=== PATIENT | female | born 1945 | race Caucasian/White ===

== ENCOUNTER 2017-01-07 05:30 | Inpatient (IN) | payer MEDICARE ==
[2017-01-07] VITALS (16 sets, daily range): BP systolic 97–121; BP diastolic 53–71; PULSE 80–98; RESP 18–30; TEMP 97.7–98.1; O2SAT 6–100
[~2017-01-07] VITALS: Ht 152.4 cm; Wt 78.6 kg
[2017-01-07] MEDS ORDERED: SODIUM CHLOR 0.9% 1000 ML INJ 1,000 ML IV SCH (05:53)
[2017-01-07] MEDS ORDERED: ONDANSETRON HCL 4 MG/2 ML VIAL IVP ONE (06:00)
[2017-01-07] MEDS ORDERED: MORPHINE SULFATE 4 MG/ML INJ IV PUSH ONE (06:00)
[2017-01-07] MEDS ORDERED: SODIUM CHLORIDE 0.9% FLUSH 10 ML FLUSH IV FLUSH PRN (06:00)
--- NOTE | 2017-01-07 06:02 | PD ---
HPI Chief Complaint: Abdominal Pain Time Seen by Provider: 05:52 Travel History International Travel<30 days: No Contact w/Intl Traveler<30days: No Traveled to known affect area: No History of Present Illness HPI The patient is a 71-year-old female that complains of abdominal pain since 9 PM yesterday. The patient drinks fairly heavily, one half bottle of wine daily. She also is a heavy smoker smoking one pack a day. She had her left upper lung removed because of lung cancer. She is short of breath, more so than usual. She does not require at home oxygen. She is a patient of Dr. Jonathan Headley. She denies any fever. PFS Past Medical History Cancer: Yes (LEFT LUNG, POST PARTIAL LOBECTOMY) COPD: Yes Hypertension: Yes Respiratory: Yes (COPD) Tetanus Vaccination: > 5 Years Influenza Vaccination: No ?: Not Past Surgical History Other Surgery: Yes (L UPPER LOBE PARTIAL LOBECTOMY) Social History Alcohol Use: Yes (OCC) Tobacco Use: Yes (1PPD) Allergies-Medications (Allergen,Severity, Reaction): Coded Allergies: Azithromycin (Verified Allergy, Severe, Anaphylaxis, 01/07/17) Reported Meds & Prescriptions Reported Meds & Active Scripts Active Reported Anoro Ellipta Inh (Umeclidinium/Vilanterol) 62.5-25 Mcg/Act Aero 1 Puff INH DAILY Losartan (Losartan Potassium) 25 Mg Tab 25 Mg PO DAILY Amlodipine (Amlodipine Besylate) 5 Mg Tab 5 Mg PO DAILY Review of Systems Except as stated in HPI: all other systems reviewed are Neg Physical Exam Narrative GENERAL: The patient is thin in slight respiratory distress and moderate abdominal pain distress. Her vital signs show respiratory rate of 28 but otherwise normal. The patient has been put on oxygen and is satting 98% on 2 L nasal cannula. SKIN: Warm and dry. HEAD: Atraumatic. Normocephalic. EYES: Pupils equal and round. No scleral icterus. No injection or drainage. ENT: No nasal bleeding or discharge. Mucous membranes pink and moist. NECK: Trachea midline. No JVD. CARDIOVASCULAR: Regular rate and rhythm. No murmur appreciated. RESPIRATORY: No accessory muscle use. Entered wheezes are heard bilaterally. Breath sounds diminished bilaterally, left diminished more than right. GASTROINTESTINAL: Abdomen hard and slightly distended. Hepatic and splenic margins not palpable. The abdomen is diffusely tender. MUSCULOSKELETAL: No obvious deformities. No clubbing. No cyanosis. No edema. NEUROLOGICAL: Awake and alert. No obvious cranial nerve deficits. Motor grossly within normal limits. Normal speech. PSYCHIATRIC: Appropriate mood and affect; insight and judgment normal. Data Data Last Documented VS Vital Signs Date Time Temp Pulse Resp B/P Pulse Ox O2 Delivery O2 Flow Rate FiO2 01/07/17 07:06 97.9 84 18 105/54 97 Nasal Cannula 2 Orders Complete Blood Count With Diff (01/07/17 05:53) Comprehensive Metabolic Panel (01/07/17 05:53) Lipase (01/07/17 05:53) Urinalysis - C+S If Indicated (01/07/17 05:53) Ct Abd/Pel W Iv Contrast(Rout) (01/07/17 05:53) Iv Access Insert/Monitor (01/07/17 05:53) Ecg Monitoring (01/07/17 05:53) Oximetry (01/07/17 05:53) Ondansetron Inj (Zofran Inj) (01/07/17 06:00) Sodium Chlor 0.9% 1000 Ml Inj (Ns 1000 M (01/07/17 05:53) Sodium Chloride 0.9% Flush (Ns Flush) (01/07/17 06:00) Electrocardiogram (01/07/17 05:53) Morphine Inj (Morphine Inj) (01/07/17 06:00) Chest, Pa & Lat (01/07/17 05:53) Arterial Blood Gas (Abg) (01/07/17 ) Labs Laboratory Tests Test 01/07/17 01/07/17 06:00 06:18 White Blood Count 4.1 TH/MM3 Red Blood Count 4.38 MIL/MM3 Hemoglobin 15.7 GM/DL Hematocrit 47.7 % Mean Corpuscular Volume 109.0 FL Mean Corpuscular Hemoglobin 35.8 PG Mean Corpuscular Hemoglobin 32.9 % Concent Red Cell Distribution Width 14.2 % Platelet Count 301 TH/MM3 Mean Platelet Volume 7.2 FL Neutrophils (%) (Auto) 80.0 % Lymphocytes (%) (Auto) 13.0 % Monocytes (%) (Auto) 5.5 % Eosinophils (%) (Auto) 0.2 % Basophils (%) (Auto) 1.3 % Neutrophils # (Auto) 3.3 TH/MM3 Lymphocytes # (Auto) 0.5 TH/MM3 Monocytes # (Auto) 0.2 TH/MM3 Eosinophils # (Auto) 0.0 TH/MM3 Basophils # (Auto) 0.1 TH/MM3 CBC Comment DIFF FINAL Differential Comment Sodium Level 142 MEQ/L Potassium Level 3.5 MEQ/L Chloride Level 103 MEQ/L Carbon Dioxide Level 27.3 MEQ/L Anion Gap 12 MEQ/L Blood Urea Nitrogen 16 MG/DL Creatinine 0.70 MG/DL Estimat Glomerular Filtration 83 ML/MIN Rate Random Glucose 109 MG/DL Calcium Level 8.8 MG/DL Total Bilirubin 1.4 MG/DL Aspartate Amino Transf 21 U/L (AST/SGOT) Alanine Aminotransferase 17 U/L (ALT/SGPT) Alkaline Phosphatase 93 U/L Total Protein 6.3 GM/DL Albumin 3.3 GM/DL Lipase 70 U/L Blood Gas Puncture Site RT BRACHIAL Blood Gas Patient Temperature 98.6 Blood Gas HCO3 26 mmol/L Blood Gas Base Excess 2.4 mmol/L Blood Gas Oxygen Saturation 87 % Arterial Blood pH 7.45 Arterial Blood Partial 38 mmHG Pressure CO2 Arterial Blood Partial 65 mmHG Pressure O2 Arterial Blood Oxygen Content 18.0 Vol % Arterial Blood 4.9 % Carboxyhemoglobin Arterial Blood Methemoglobin 1.2 % Blood Gas Hemoglobin 14.8 G/DL Oxygen Delivery Device ROOM AIR Blood Gas Inspired Oxygen 21 % [facility] Medical Decision Making Medical Screen Exam Complete: Yes Emergency Medical Condition: Yes Medical Record Reviewed: Yes Differential Diagnosis Emphysema, hypoxemia, pneumothorax, COPD with acute exacerbation, abdominal pain etiology undetermined, perforated peptic ulcer, pancreatitis, dehydration, electrolyte disorder, colitis Narrative Course It is now 0711 and the patient is transferred to Dr. Ren. The chest x-ray does not show a perforated viscus. Jone Dalton MD Jan 07, 2017 06:02
[2017-01-07] MEDS ORDERED: UMEC1AER INH (06:03)
[2017-01-07] MEDS ORDERED: AMLO5TAB2 PO (06:03)
[2017-01-07] MEDS ORDERED: LOSA25TA PO (06:03)
[2017-01-07 06:06] LABS: AUTOMATED NEUTROPHIL # 3.3 TH/MM3 (1.8-7.7); BASOPHIL # 0.1 TH/MM3 (0-0.2); BASOPHIL % 1.3 % (0.0-2.0); EOSINOPHIL % 0.2 % (0.0-4.0); HEMATOCRIT 47.7 % (35.0-46.0); LYMPHOCYTE # 0.5 TH/MM3 (1.0-4.8); MEAN CORPUSCULAR HEMOGLOBIN 35.8 PG (27.0-34.0); MEAN CORPUSCULAR HGB CONC 32.9 % (32.0-36.0); MONO % 5.5 % (0.0-8.0); PLATELET COUNT 301 TH/MM3 (150-450); RED BLOOD COUNT 4.38 MIL/MM3 (4.00-5.30); RED CELL DISTRIBUTION WIDTH 14.2 % (11.6-17.2); WHITE BLOOD COUNT 4.1 TH/MM3 (4.0-11.0)
[2017-01-07 06:17] LABS: CHLORIDE 103 MEQ/L (98-107); POTASSIUM 3.5 MEQ/L (3.5-5.1); SODIUM (NA) 142 MEQ/L (136-145)
[2017-01-07 06:20] LABS: ANION GAP 12 MEQ/L (5-15); BICARBONATE 27.3 MEQ/L (21.0-32.0)
[2017-01-07 06:21] LABS: BLOOD UREA NITROGEN 16 MG/DL (7-18)
[2017-01-07 06:23] LABS: ALT (GPT) 17 U/L (10-53); AST (GOT) 21 U/L (15-37)
[2017-01-07 06:24] LABS: GLOMERULAR FILTRATION RATE 83 ML/MIN (>89)
[2017-01-07 06:25] LABS: TOTAL BILIRUBIN ADULT 1.4 MG/DL (0.2-1.0)
[2017-01-07 06:26] LABS: ALKALINE PHOSPHATASE 93 U/L (45-117)
[2017-01-07 06:28] LABS: BLOOD GAS BASE EXCESS 2.4 mmol/L (-2-2); BLOOD GAS CARBOXYHEMOGLOBIN 4.9 % (0-4); BLOOD GAS HCO3 26 mmol/L (22-26); BLOOD GAS METHEMOGLOBIN 1.2 % (0-2); BLOOD GAS O2 HGB SATURATION 87 % (90-100); BLOOD GAS PCO2 38 mmHG (38-42); BLOOD GAS PO2 65 mmHG (61-120); BLOOD GAS TOTAL HGB 14.8 G/DL (12.0-16.0); TEMP CORR TO 98.6
[2017-01-07 06:29] LABS: CRITICAL VALUE YES; DRAW SITE RT BRACHIAL; FIO2 21 %; NUMBER OF ARTERIAL PUNCTURES 1; OXYGEN DEVICE ROOM AIR; STAT YES
--- NOTE | 2017-01-07 06:31 | RADHPO ---
EXAM DATE/TIME: 01/07/2017 06:08 [facility] COMPARISON: No previous studies available for comparison. INDICATIONS : Shortness of breath. MEDICAL HISTORY : Chronic obstructive pulmonary disease. SURGICAL HISTORY : Lobectomy. ENCOUNTER: Initial ACUITY: 1 day PAIN SCORE: 8/10 LOCATION: Bilateral chest FINDINGS: Hyperinflation and emphysematous changes are noted. Heart size normal. Aortic calcification is seen. Left hilar surgical clips and suture material. Osseous structures are intact. CONCLUSION: Emphysema. Carl Purcell MD on January 07, 2017 at 6:29 Board Certified Radiologist. This report was verified electronically.
[2017-01-07 06:32] LABS: HEMO FLAGS DIFF FINAL
[2017-01-07] MEDS ORDERED: IOHEXOL 350 MG/ML 10 ML VIAL (for RAD DIAG) IV ONE (07:16)
--- NOTE | 2017-01-07 07:28 | PD ---
Physical Exam Narrative GENERAL: thin, well-developed patient. SKIN: Warm and dry. HEAD: Normocephalic EYES: No injection or drainage. ENT: No nasal drainage noted. NECK: Supple, trachea midline. CARDIOVASCULAR: Regular rate and rhythm RESPIRATORY: decreased aeration bilaterally. No accessory muscle use. GASTROINTESTINAL: Abdomen is diffusely tender with guarding NEUROLOGICAL: Awake and alert. Motor and sensory grossly within normal limits. Normal speech. Data Data Last Documented VS Vital Signs Date Time Temp Pulse Resp B/P Pulse Ox O2 Delivery O2 Flow Rate FiO2 01/07/17 07:44 94 Nasal Cannula 2.00 01/07/17 07:06 97.9 84 18 105/54 Orders Complete Blood Count With Diff (01/07/17 05:53) Comprehensive Metabolic Panel (01/07/17 05:53) Lipase (01/07/17 05:53) Urinalysis - C+S If Indicated (01/07/17 05:53) Ct Abd/Pel W Iv Contrast(Rout) (01/07/17 05:53) Iv Access Insert/Monitor (01/07/17 05:53) Ecg Monitoring (01/07/17 05:53) Oximetry (01/07/17 05:53) Ondansetron Inj (Zofran Inj) (01/07/17 06:00) Sodium Chlor 0.9% 1000 Ml Inj (Ns 1000 M (01/07/17 05:53) Sodium Chloride 0.9% Flush (Ns Flush) (01/07/17 06:00) Electrocardiogram (01/07/17 05:53) Morphine Inj (Morphine Inj) (01/07/17 06:00) Chest, Pa & Lat (01/07/17 05:53) Arterial Blood Gas (Abg) (01/07/17 ) Iohexol 350 Inj (Omnipaque 350 Inj) (01/07/17 07:16) Sodium Chlor 0.9% 1000 Ml Inj (Ns 1000 M (01/07/17 07:30) Methylprednisolone So Succ Inj (Solumedr (01/07/17 07:30) Albuterol-Ipratropium Neb (Duoneb Neb) (01/07/17 07:30) Blood Culture (01/07/17 07:36) Piperacil-Tazo 4.5 Gm Premix (Zosyn 4.5 (01/07/17 07:36) Lactic Acid Sepsis Protocol (01/07/17 07:36) Type And Screen (01/07/17 08:02) Admit Order (Ed Use Only) (01/07/17 08:02) Labs Laboratory Tests Test 01/07/17 01/07/17 01/07/17 06:00 06:18 07:43 White Blood Count 4.1 TH/MM3 Red Blood Count 4.38 MIL/MM3 Hemoglobin 15.7 GM/DL Hematocrit 47.7 % Mean Corpuscular Volume 109.0 FL Mean Corpuscular Hemoglobin 35.8 PG Mean Corpuscular Hemoglobin 32.9 % Concent Red Cell Distribution Width 14.2 % Platelet Count 301 TH/MM3 Mean Platelet Volume 7.2 FL Neutrophils (%) (Auto) 80.0 % Lymphocytes (%) (Auto) 13.0 % Monocytes (%) (Auto) 5.5 % Eosinophils (%) (Auto) 0.2 % Basophils (%) (Auto) 1.3 % Neutrophils # (Auto) 3.3 TH/MM3 Lymphocytes # (Auto) 0.5 TH/MM3 Monocytes # (Auto) 0.2 TH/MM3 Eosinophils # (Auto) 0.0 TH/MM3 Basophils # (Auto) 0.1 TH/MM3 CBC Comment DIFF FINAL Differential Comment Sodium Level 142 MEQ/L Potassium Level 3.5 MEQ/L Chloride Level 103 MEQ/L Carbon Dioxide Level 27.3 MEQ/L Anion Gap 12 MEQ/L Blood Urea Nitrogen 16 MG/DL Creatinine 0.70 MG/DL Estimat Glomerular Filtration 83 ML/MIN Rate Random Glucose 109 MG/DL Calcium Level 8.8 MG/DL Total Bilirubin 1.4 MG/DL Aspartate Amino Transf 21 U/L (AST/SGOT) Alanine Aminotransferase 17 U/L (ALT/SGPT) Alkaline Phosphatase 93 U/L Total Protein 6.3 GM/DL Albumin 3.3 GM/DL Lipase 70 U/L Blood Gas Puncture Site RT BRACHIAL Blood Gas Patient Temperature 98.6 Blood Gas HCO3 26 mmol/L Blood Gas Base Excess 2.4 mmol/L Blood Gas Oxygen Saturation 87 % Arterial Blood pH 7.45 Arterial Blood Partial 38 mmHG Pressure CO2 Arterial Blood Partial 65 mmHG Pressure O2 Arterial Blood Oxygen Content 18.0 Vol % Arterial Blood 4.9 % Carboxyhemoglobin Arterial Blood Methemoglobin 1.2 % Blood Gas Hemoglobin 14.8 G/DL Oxygen Delivery Device ROOM AIR Blood Gas Inspired Oxygen 21 % Urine Collection Type CLEAN CATCH Urine Color YELLOW Urine Turbidity CLEAR Urine pH 7.5 Urine Specific [place] 1.035 Urine Protein NEG mg/dL Urine Glucose (UA) NEG mg/dL Urine Ketones NEG mg/dL Urine Occult Blood NEG Urine Nitrite NEG Urine Bilirubin NEG Urine Leukocyte Esterase NEG Urine WBC 0-2 /hpf Urine Squamous Epithelial > 8 /hpf Cells Urine Yeast (Budding) FEW Microscopic Urinalysis Comment CULT NOT INDICATED Urine Collection Time 07:43 [facility] Medical Record Reviewed: Yes (pmh confirmed) Supervised Visit with JERDE: No Interpretation(s) CBC & BMP Diagram 01/07/17 06:00 Last 24 hours Impressions Chest X-Ray 01/07/17 0553 Signed Impressions: Service Date/Time: Saturday, January 07, 2017 06:08 - CONCLUSION: Emphysema. Carl Purcell MD Abdomen/Pelvis CT 01/07/17 0553 Signed Impressions: Service Date/Time: Saturday, January 07, 2017 07:07 - CONCLUSION: 1. There is a small volume of free intraperitoneal air suggestive of perforated bowel. The site of perforation is not identified however. 2. There is also a small volume of free fluid in the abdomen and pelvis with associated peritoneal enhancement. Enhancement of the peritoneum is typically associated with infection, hemorrhage, or malignancy. 3. Nonacute findings include moderate size hiatal hernia, severe atherosclerotic disease, and sigmoid diverticulosis. These findings were discussed with Dr. Chiang via telephone. Joo Mc MD Narrative Course In summary this is a 71-year-old female with remote history of lung cancer status post lobectomy and history of chronic COPD that presents with abdominal pain. Signed over to me to follow CT and admit. While awaiting CT I talked with patient and she states that she has been having her symptoms intermittently over the past month but last night it got bad and she started throwing up. She states that she had an appointment with her primary on January 19 but could not wait until then. She states she has been using her breathing treatments with her COPD more frequently. She normally does not wear oxygen. Will give DuoNeb' s and Solu-Medrol for her COPD exacerbation while awaiting testing. In addition blood cultures and lactate will be added on and she will given a repeat fluid bolus. Patient updated about CT scan abdomen pelvis and Zosyn was ordered. Patient is using bedpan currently to provide urinalysis and did not want a urine catheter. She states she had surgery multiple years ago to remove benign tumors from her abdomen at [facility] in [place] and agrees to admit patient and family updated about icu transfer, patient's vitals stable Critical Care Narrative Aggregate critical care time was 45 minutes. Time to perform other separately billable procedures was not included in the critical care time. My time did not include minutes spent treating any other patients simultaneously or on activities that did not directly contribute to the patient's treatment. The services I provided to this patient were to treat and/or prevent clinically significant deterioration that could result in: sepsis, respiratory failure I provided critical care services requiring my management, as noted below: Chart data review, documentation time, medication orders and management, vital sign assessments/reviewing monitor data, ordering and reviewing lab tests, ordering and interpreting/reviewing x-rays and diagnostic studies, care of the patient and discussion of the patient with the admitting physicians. Physician Communication Physician Communication dr ho states to admit to the main and will see patient dr vo requests to admit to inspecting machine adjuster and they will take over care after she is out of the ICU dr donis requests to call surgical inspecting machine adjuster dr roa agrees to be admitting physician and will see in the ER dr castro given brief report in case she goes to the ER as may no go straight to ICU dr ho updated at 9 about evac here and transferring now Diagnosis Primary Impression: Free intraperitoneal air Additional Impression: COPD exacerbation Admitting Information Admitting Physician Requests: Admit Angelica Chiang MD Jan 07, 2017 07:28
[2017-01-07] MEDS ORDERED: SODIUM CHLOR 0.9% 1000 ML INJ 1,000 ML IV ONE (07:30)
[2017-01-07] MEDS ORDERED: methylPREDNISolone SOD SUCC 125 MG/2 ML VIAL IVP ONE (07:30)
[2017-01-07] MEDS ORDERED: PIPERACIL-TAZO 4.5 GM PREMIX 100 ML IV STA (07:36)
--- NOTE | 2017-01-07 07:40 | RADHPO ---
EXAM DATE/TIME: 01/07/2017 07:07 [facility] COMPARISON: No previous studies available for comparison. INDICATIONS : Lower abdominal pain. IV CONTRAST: 60 cc Omnipaque 350 (iohexol) IV ORAL CONTRAST: No oral contrast ingested. RADIATION DOSE: 4.43 CTDIvol (mGy) MEDICAL HISTORY : Carcinoma, lung. Hypertension. SURGICAL HISTORY : Lobectomy. ENCOUNTER: Initial ACUITY: 1 day PAIN SCALE: 10/10 LOCATION: Bilateral lower quadrant TECHNIQUE: Volumetric scanning of the abdomen and pelvis was performed. Using automated exposure control and ad justment of the mA and/or kV according to patient size, radiation dose was kept as low as reasonably achievable to obtain optimal diagnostic quality images. FINDINGS: LOWER LUNGS: The visualized lower lungs are clear. LIVER: Homogeneous density with 3 low density lesions identified ranging in size from 5 mm up to 9 mm. These are too small to characterize but features favor small cysts. There is no dilation of the biliary t ree. No calcified gallstones. SPLEEN: Normal size without lesion. PANCREAS: Within normal limits. KIDNEYS: Normal in size and shape. There is no mass, stone or hydronephrosis. ADRENAL GLANDS: Within normal limits. VASCULAR: There is no aortic aneurysm. There is severe atherosclerotic disease. BOWEL/MESENTERY: The stomach, small bowel, and colon demonstrate no acute abnormality. There is a small volume of anastacia e fluid in the abdomen and pelvis with mild peritoneal enhancement. A small amount of free intraperit blake air is visualized in the anterior abdomen. A moderate size hiatal hernia is present. There is s igmoid diverticulosis. ABDOMINAL WALL: Within normal limits. RETROPERITONEUM: There is no lymphadenopathy. BLADDER: No wall thickening or mass. REPRODUCTIVE: The uterus is absent. No adnexal abnormalities seen. INGUINAL: There is no lymphadenopathy or hernia. MUSCULOSKELETAL: There are mild degenerative changes of the spine. No acute osseous abnormality is visualized. CONCLUSION: 1. There is a small volume of free intraperitoneal air suggestive of perforated bowel. The site of pe rforation is not identified however. 2. There is also a small volume of free fluid in the abdomen and pelvis with associated peritoneal en hancement. Enhancement of the peritoneum is typically associated with infection, hemorrhage, or malig sudha. 3. Nonacute findings include moderate size hiatal hernia, severe atherosclerotic disease, and sigmoid diverticulosis. These findings were discussed with Dr. Hird via telephone. Joo Mc MD on January 07, 2017 at 7:28 Board Certified Radiologist. This report was verified electronically.
[2017-01-07] MEDS: RESP: ALBUTEROL 2.5 MG/IPRATROPIUM 0.5 MG NEB (SCH) INH ×5 (07:43→23:29)
[2017-01-07 07:54] LABS: BLOOD, URINE NEG (NEG); GLUCOSE,URINE NEG (NEG); KETONE, URINE NEG (NEG); NITRITE,URINE NEG (NEG); PH, URINE 7.5 (5.0-8.5)
[2017-01-07 08:01] LABS: METHOD OF COLLECTION CLEAN CATCH; URINE COLOR YELLOW (YELLW/STRAW)
[2017-01-07 08:02] LABS: COMMENT (UR) CULT NOT INDICATED; CULTURE IF INDICATED CULT NOT INDICATED; SQUAMOUS EPITHELIAL CELL URINE > 8 /hpf (0-5); WBC, URINE 0-2 /hpf (0-5)
[2017-01-07] MEDS ORDERED: POTASSIUM PHOSPHATE INJ 30 MMOL in SODIUM CHLOR 0.9% 250 ML INJ 250 ML IV PRN (10:10)
[2017-01-07] MEDS ORDERED: POTASSIUM PHOSPHATE MONOBASIC 500 MG TAB PO/TUBE PRN (10:10)
--- NOTE | 2017-01-07 10:14 | HHI.HP ---
[facility] Service Critical Care Medicine Primary Care Physician Jonathan Headley III, MD Admission Diagnosis perforated viscus Diagnosis: (1) Sigmoid diverticulosis Diagnosis: Principal (2) Hiatal hernia Diagnosis: Principal (3) Macrocytosis without anemia Diagnosis: Principal (4) Acute respiratory insufficiency Diagnosis: Principal (5) Free intraperitoneal air Diagnosis: Principal (6) COPD exacerbation Diagnosis: Principal (7) History of lobectomy of lung Diagnosis: Principal (8) History of lung cancer Diagnosis: Principal (9) Tobacco abuse Diagnosis: Principal Chief Complaint: Abdominal pain since 9 PM/chronic abdominal pain 1 month Travel History International Travel<30 Days: No Contact w/Intl Traveler <30 Da: No Traveled to Known Affected Are: No History of Present Illness 71-year-old female. Date of admission 01/07/2017. Past medical history includes COPD not on supplemental oxygen at home, 60 years tobaccoism, history of left upper lobe lobectomy secondary to cancer [facility] and hypertension. She presents to the [place] ED with acute onset at 9 PM last night of abdominal pain. 10 out of 10. Sharp and stabbing without relief.I associated with nausea and vomiting. She states he's had abdominal pain "off and on" for the past month without relief. She states that she had an appointment with her primary on January 19 but could not wait until then. She was given Solu-Medrol 125 mg IV 1 and a DuoNeb treatment and placed on [address] scan abdomen pelvis reveals free peritoneal air without, free fluid within the abdomen, moderate hiatal hernia and sigmoid diverticulosis. Blood cultures [address] and Z[address] was ordered[address] Dr[address] ho was contacted and requested admission to the associate director with a consultation to him. He will see here at [facility]. She states she had surgery multiple years ago to remove benign tumors from her abdomen at [facility] in [place] and agrees to admit Currently, patient requesting morphine for pain management. Hemodynamic stable. On 3 L nasal cannula Review of Systems Constitutional: COMPLAINS OF: Fatigue, Weight loss, DENIES: Fever, Weight gain Endocrine: DENIES: Heat/cold intolerance, Polydipsia, Polyuria Eyes: DENIES: Blurred vision, Double Vision Ears, nose, mouth, throat: DENIES: Tinnitus Respiratory: DENIES: Apneas Cardiovascular: DENIES: Chest pain, Lower Extremity Edema Gastrointestinal: COMPLAINS OF: Abdominal pain, Nausea, Vomiting Genitourinary: DENIES: Urinary frequency Musculoskeletal: DENIES: Joint pain, Back pain, Neck pain Integumentary: DENIES: Abnormal pigmentation Hematologic/lymphatic: DENIES: Bruising Immunologic/allergic: DENIES: Urticaria Neurologic: DENIES: Abnormal gait Psychiatric: DENIES: Anxiety, Confusion, Depression Past Family Social History Allergies: Coded Allergies: Azithromycin (Verified Allergy, Severe, Anaphylaxis, 01/07/17) Past Medical History COPD Hypertension History of lung cancer History of benign abdominal masses unknown type Past Surgical History Left upper lobe lobectomy Removal abdominal masses 2 at [facility] Reported Medications As needed Ventolin Anoro Ellipta 62.5/25 one inhalation daily Losartan 25 mg by mouth daily Norvasc 5 mg by mouth daily Active Ordered Medications Reviewed in EMR Family History Positive for heart disease, cancer and hypertension Social History 1 pack per day tobacco 60 years ongoing. Social alcohol. Denies binge drinking. No IV drug use. Physical Exam Vital Signs Vital Signs Date Time Temp Pulse Resp B/P Pulse Ox O2 Delivery O2 Flow Rate FiO2 01/07/17 08:49 98 20 111/54 94 Nasal Cannula 2 01/07/17 08:42 94 22 111/53 93 Nasal Cannula 2 01/07/17 08:21 94 18 105/57 97 Nasal Cannula 2 01/07/17 07:44 94 Nasal Cannula 2.00 01/07/17 07:06 97.9 84 18 105/54 97 Nasal Cannula 2 01/07/17 06:48 80 20 97/66 96 Nasal Cannula 2 01/07/17 06:04 30 94 Room Air 01/07/17 05:50 87 20 108/71 97 Nasal Cannula 2 Physical Exam GENERAL: 71-year-old male, quite cachectic currently resting in bed in mild distress secondary to pain SKIN: Warm and dry. No rash HEAD: Atraumatic. Normocephalic. EYES: Pupils equal and round about 2 mm bilaterally and reactive. No scleral icterus. No injection or drainage. ENT: No nasal bleeding or discharge. Mucous membranes pink and moist. NECK: Trachea midline. No JVD. CARDIOVASCULAR: Regular rate and rhythm. S1, S2. No S4. Without murmur RESPIRATORY: Diminished breath sounds throughout. Positive and extremities.. Breath sounds equal bilaterally. GASTROINTESTINAL: Abdomen firm, tender palpation with voluntary guarding epigastric region. Positive bowel movement. Bowel sounds were not appreciated.. MUSCULOSKELETAL: Extremities without any significant peripheral edema. No obvious deformities. NEUROLOGICAL: Awake and alert. No obvious cranial nerve deficits. Motor grossly within normal limits. Five out of 5 muscle strength in the arms and legs. Normal speech. PSYCHIATRIC: Appropriate mood and affect; insight and judgment normal. Laboratory Laboratory Tests Test 01/07/17 01/07/17 01/07/17 01/07/17 06:00 06:18 07:43 08:05 White Blood Count 4.1 Red Blood Count 4.38 Hemoglobin 15.7 Hematocrit 47.7 Mean Corpuscular Volume 109.0 Mean Corpuscular Hemoglobin 35.8 Mean Corpuscular Hemoglobin 32.9 Concent Red Cell Distribution Width 14.2 Platelet Count 301 Mean Platelet Volume 7.2 Neutrophils (%) (Auto) 80.0 Lymphocytes (%) (Auto) 13.0 Monocytes (%) (Auto) 5.5 Eosinophils (%) (Auto) 0.2 Basophils (%) (Auto) 1.3 Neutrophils # (Auto) 3.3 Lymphocytes # (Auto) 0.5 Monocytes # (Auto) 0.2 Eosinophils # (Auto) 0.0 Basophils # (Auto) 0.1 CBC Comment DIFF FINAL Differential Comment Sodium Level 142 Potassium Level 3.5 Chloride Level 103 Carbon Dioxide Level 27.3 Anion Gap 12 Blood Urea Nitrogen 16 Creatinine 0.70 Estimat Glomerular Filtration 83 Rate Random Glucose 109 Calcium Level 8.8 Total Bilirubin 1.4 Aspartate Amino Transf 21 (AST/SGOT) Alanine Aminotransferase 17 (ALT/SGPT) Alkaline Phosphatase 93 Total Protein 6.3 Albumin 3.3 Lipase 70 Blood Gas Puncture Site RT BRACHIAL Blood Gas Patient Temperature 98.6 Blood Gas HCO3 26 Blood Gas Base Excess 2.4 Blood Gas Oxygen Saturation 87 Arterial Blood pH 7.45 Arterial Blood Partial 38 Pressure CO2 Arterial Blood Partial 65 Pressure O2 Arterial Blood Oxygen Content 18.0 Arterial Blood 4.9 Carboxyhemoglobin Arterial Blood Methemoglobin 1.2 Blood Gas Hemoglobin 14.8 Oxygen Delivery Device ROOM AIR Blood Gas Inspired Oxygen 21 Urine Collection Type CLEAN CATCH Urine Color YELLOW Urine Turbidity CLEAR Urine pH 7.5 Urine Specific Forbes 1.035 Urine Protein NEG Urine Glucose (UA) NEG Urine Ketones NEG Urine Occult Blood NEG Urine Nitrite NEG Urine Bilirubin NEG Urine Leukocyte Esterase NEG Urine WBC 0-2 Urine Squamous Epithelial > 8 Cells Urine Yeast (Budding) FEW Microscopic Urinalysis Comment CULT NOT INDICATED Urine Collection Time 07:43 Lactic Acid Level 1.5 Date/Time Procedure Status Source Growth 01/07/17 08:05 Aerobic Blood Culture Received Blood Peripheral Pending 01/07/17 08:05 Anaerobic Blood Culture Received Blood Peripheral Pending Result Diagram: 01/07/17 0600 01/07/17 0600 Imaging Last Impressions Chest X-Ray 01/07/17 0553 Signed Impressions: Service Date/Time: Saturday, January 07, 2017 06:08 - CONCLUSION: Emphysema. Carl Purcell MD Abdomen/Pelvis CT 01/07/17552 Signed Impressions: Service Date/Time: Saturday, January 07, 2017 07:07 - CONCLUSION: 1. There is a small volume of free intraperitoneal air suggestive of perforated bowel. The site of perforation is not identified however. 2. There is also a small volume of free fluid in the abdomen and pelvis with associated peritoneal enhancement. Enhancement of the peritoneum is typically associated with infection, hemorrhage, or malignancy. 3. Nonacute findings include moderate size hiatal hernia, severe atherosclerotic disease, and sigmoid diverticulosis. These findings were discussed with Dr. Chiang via telephone. Joo Mc MD Assessment and Plan Assessment and Plan Neuro/Psych: Acetaminophen for fever [place]/morphine for pain management CV: History of hypertension Atherosclerotic vascular disease Patient is on losartan 25 mg daily Norvasc 5 mill grams daily at home for hypertension. These have currently been held. Resume when clinically indicated EKG currently pending Will provide as needed blood pressure medication if needed Currently on normal saline at 84 cc an hour. Currently not requiring antihypertensives and/or vasopressors Lactate 1.5 within normal limits Resp: COPD History of lung cancer status post left upper lobe lobectomy Nasal cannula to maintain saturations greater than or equal to 92% Incentive spirometry while awake Bronchodilator therapy with DuoNeb's every 4 hours and albuterol every 2 hours breakthrough for dyspnea Anoro Ellipta inhalation daily at home. This is been held Chest x-ray revealed emphysematous times changes bilaterally GI: Free intraperitoneal air Hiatal hernia Sigmoid diverticulosis History of removal of 2 benign abdominal masses Low albumin Elevated bilirubin CT abdomen/pelvis revealed free intracranial air unknown source. Free fluid within the abdomen. Hiatal hernia and liver cyst and endoscopic vascular disease and sigmoid diverticulosis. Dr. ho/surgery consulted. Await recommendations Protonix 40 mg IV twice a day for GI prophylaxis LFTs within normal limits. Bilirubin elevated 1.4. Lipase actually low at 70. : Currently refusing Jane. Endo: Sliding-scale insulin if indicated to maintain euglycemia Renal: Monitor urine output closely. Accurate I's and O's BMP within normal limits. Follow BMP in a.m. Heme: Macrocytosis Polycythemia likely secondary to dehydration Follow-up CBC in AM. Check B12, folate/TSH and peripheral smear for macrocytosis ID: Likely peritonitis from bowel rupture Received 1 dose of Zosyn at [place]. Currently on Cipro/Flagyl and Diflucan day 1 Pertinent cultures Blood cultures - 01/07 - pending FEN: Replace electrolytes as clinically indicated per ICU electrolyte protocol MSK: PT/OT evaluate and treat Access - Peripheral IV. Patient gave verbal consent for Okay for central line if indicated. Benefits and risks discussed at length. Prophylaxis - GI - Protonix IV twice a day - DVT - SCD/pharmacological prophylaxis when okay with surgery Critical Care: The total critical care time was 75 minutes. Time to perform other separately billable procedures was not included in the critical care time. Code Status Full code Discussed Condition With Patient. Family members at bedside. Care plan discussed and all questions answered. Navi Lanza MD Jan 07, 2017 10:13
[2017-01-07] MEDS ORDERED: RESP: ALBUTEROL 2.5 MG/3 ML NEB (PRN) INH (10:15)
[2017-01-07] MEDS ORDERED: MAGNESIUM SULFATE INJ 2 GM in SODIUM CHLORIDE 0.9% INJ 96 ML IV PRN (10:15)
[2017-01-07] MEDS ORDERED: POTASSIUM CHLOR 40 MEQ PREMIX 100 ML IV PRN ×2 (10:15)
[2017-01-07] MEDS ORDERED: POTASSIUM PHOSPHATE MONOBASIC 500 MG TAB PO PRN (10:15)
[2017-01-07] MEDS ORDERED: POTASSIUM CHLOR 20 MEQ PREMIX 100 ML IV PRN (10:15)
[2017-01-07] MEDS ORDERED: MAGNESIUM SULFATE INJ 4 GM in SODIUM CHLORIDE 0.9% INJ 92 ML IV PRN (10:15)
[2017-01-07] MEDS ORDERED: SODIUM PHOSPHATE INJ 30 MMOL in SODIUM CHLOR 0.9% 250 ML INJ 240 ML IV PRN (10:15)
[2017-01-07] MEDS ORDERED: CHLORHEXIDINE GLUCONATE 2 % 1 PACK (2 CLOTHS) TOP PRN (10:15)
[2017-01-07] MEDS ORDERED: ACETAMINOPHEN 325 MG TAB PO PRN (10:15)
[2017-01-07] MEDS ORDERED: MAGNESIUM OXIDE 400 MG TAB PO PRN (10:15)
[2017-01-07] MEDS ORDERED: MISCELLANEOUS NURSING INFORMATION XX SCH (10:15)
[2017-01-07] MEDS ORDERED: DEXTROSE 50% IN WATER 50 ML VIAL(D50) IV PUSH PRN (10:45)
[2017-01-07] MEDS ORDERED: GLUCAGON 1 MG/ML VIAL OTHER PRN (10:45)
[2017-01-07] MEDS: SODIUM CHLOR 0.9% 1000 ML INJ 1,000 ML IV SCH (11:13)
[2017-01-07] MEDS ORDERED: SODIUM CHLORIDE 0.9% FLUSH 5 ML FLUSH IV FLUSH PRN (11:15)
[2017-01-07] MEDS: MORPHINE SULFATE 4 MG/ML INJ IV PRN ×3 (11:16→20:08)
[2017-01-07] MEDS: ONDANSETRON HCL 4 MG/2 ML VIAL IV PRN ×2 (11:17→20:07)
--- NOTE | 2017-01-07 11:41 | EKG ---
Date Performed: 01/07/2017 Time Performed: 05:35:58 PTAGE: 71 years EKG: Sinus rhythm Inferior and anterior T wave changes are nonspecific Borderline ECG NO PREVIOUS TRACING DOCTOR: Uriel Alba Interpretating Date/Time 01/07/2017 11:40:49
[2017-01-07] MEDS: INSULIN NovoLIN REGULAR SUPPLEMENTAL SCALE SQ SCH ×2 (12:00→17:34)
[2017-01-07] MEDS ORDERED: DIVALPROEX SODIUM SPRINKLES 125 MG CAP PO SCH (12:15)
[2017-01-07] MEDS: metroNIDAZOLE 500 MG INJ 100 ML IV SCH ×2 (12:31→17:12)
[2017-01-07] MEDS: CIPROFLOXACIN 400 MG PREMIX 200 ML IV SCH (12:54)
[2017-01-07] MEDS ORDERED: FLUCONAZOLE 400 MG PREMIX BAG 200 ML IV ONE (13:00)
--- NOTE | 2017-01-07 16:30 | MB ---
cc: CM CABRERA M.D. DATE OF CONSULTATION 01/07/2017 REASON FOR CONSULTATION Abdominal pain, possible perforated viscus. HISTORY OF THE PRESENT ILLNESS Ms. Fraga is a very pleasant 71-year-old female who apparently was seen in the [place] [facility] early this morning with complaints of severe abdominal pain. The patient states that she has had abdominal pain off and on for the last three months but last night it became unbearable. She states that the pain was 10/10. She came to the [place] [facility] where she was seen and evaluated by Dr. Dalton early this morning. Dr. Dalton checked her out, then to Dr. Chiang. The patient underwent a CT scan of the abdomen and pelvis which showed a few small bubbles of free air and a small amount of free fluid with no obvious source. Imaging surgical consultation was requested. The patient was brought up to [facility] for formal evaluation. The patient has a long-standing history of COPD and is oxygen dependent at times. Overall she is in a somewhat compromised medical state due to her chronic illnesses and heavy alcohol and cigarette use. The patient was seen immediately upon arrival to the [facility] room 1301 where she was accompanied by her family. On my questioning the patient states that the pain is significantly improved since last. Apparently she has been given a couple of doses of pain medications in the emergency department down in [place]. The patient states that the pain is diffuse and all over. She reports she has had some left lower quadrant pain in the past. She has had nausea but no vomiting. She denies any fever or chills. She denies any changes in her bowels. She rates the pain now at about a 5 out of 10. PAST MEDICAL HISTORY Includes: 1. Chronic obstructive pulmonary disease. 2. Lung cancer. 3. Hypertension. 4. The patient denies any history of ulcer disease. PAST SURGICAL HISTORY 1. She reports a left upper lobectomy for lung cancer. 2. She also states that she had benign tumors removed from her abdomen. Upon further questioning she believes these were associated with her uterus or ovaries. 3. She apparently has also had a hysterectomy. MEDICATIONS List includes: 1. Inhalers. 2. Norvasc. 3. Losartan. ALLERGIES SHE HAS AN ALLERGY TO AZITHROMYCIN. SOCIAL HISTORY She smokes a pack a day and drinks wine daily. She does not use any drugs. She does live her locally. FAMILY HISTORY Noncontributory. REVIEW OF SYSTEMS Please see history of present illness. PHYSICAL EXAMINATION VITAL SIGNS: Temperature is 98, pulse is 80, blood pressure is 120/60, respiratory rate 22. O2 saturation 100% on 2 liters nasal cannula. GENERAL: This is a chronic ill appearing female who much older than her stated age. HEENT: Pupils equal, round and reactive to light. Sclerae are white. Oropharynx is clear and moist. NECK: Supple. No masses. LUNGS: Clear to auscultation bilaterally. HEART: S1-S2. No murmur. ABDOMEN: Overall somewhat firm. She does have some moderate tenderness. She has no obvious rebound or guarding. She has a few bowel sounds. She has a lower midline and a low transverse incision. No obvious hernias. EXTREMITIES: Free range of motion times four. NEUROLOGICAL: Alert and oriented times three. LABORATORY DATA White blood cell count 4. Hemoglobin 15. Platelet count is 301. Electrolytes are within normal limits. Elevated glucose 109. Albumin 3.3. Lactic acid is 1.5. Urinalysis is negative. IMAGING CT scan of the abdomen and pelvis was reviewed. There are a few small bubbles of free air in the upper abdominal region. There is also a small amount of free fluid in the anterior abdomen. The patient does have obvious sigmoid diverticulosis without evidence of diverticulitis. IMPRESSION Abdominal pain, probable perforated viscus. PLAN At this point I had along discussion with the patient and her son at the bedside. We reviewed options for treatment including medical management with non operative treatment versus operative treatment. I reviewed the benefits and risks of non operative versus operative treatment. We discussed most likely possibility being a perforated ulcer or perforated diverticulitis. Based on her history I favor a perforated ulcer as she does not have a significant inflammatory reaction around her colon which would accompany a perforated diverticulitis. I explained to her that the ulcer may or may not have sealed. She really has a minimal amount of free air and free fluid at this time. We discussed possible surgical exploration. I advised her we could begin with a diagnostic laparoscopy and if we could elucidate the source of the perforation and close it laparoscopically I would be glad to do that. However, I explained to her that if the perforation was significant she may require formal exploratory laparotomy, possible colostomy if it is the sigmoid colon. At this point I advised her and her son that they could talk amongst themselves and decide with path they would like to pursue. At this time the patient is hemodynamically stable. Her pain has been managed with pain medications. Her laboratory values indicate a normal white count with only a mild shift at this time. Her vital signs are fairly normal except for the slight tachypnea which may be secondary to her COPD and anxiety and pain. Her ABG does not demonstrate any significant acidosis. In fact she is slightly alkalotic. Her lactic acid is 1.5. We will allow the patient and family to decide which course they would like to pursue. I offered them immediate operative exploration if they would like o do that right now. ADDENDUM Approximately two hours later I received a phone call from the nursing staff. She states that the patient and her son would like to perform observation for the first 24 hours. If she improves then they will continue non operative management. If her clinical condition deteriorates in the next 24 hours, I strongly recommended surgical exploration and they agreed. We will reassess the patient's abdominal examination in the morning. If she has a clinical deterioration this evening, we will plan for operative exploration. Please note that this consultation required prolonged conversation with the family and the patient. I also performed an extensive review of the EMR and evaluation of the labs and x-rays. It also required followup interaction in order to elucidate the plan of action. MD CHASE Titus/MARICARMEN /3:42 PM /3:53 PM
[2017-01-07] MEDS: SODIUM CHLORIDE 0.9% FLUSH 5 ML FLUSH IV FLUSH SCH (20:08)
[2017-01-07] MEDS: PANTOPRAZOLE SODIUM 40 MG VIAL IV SCH (20:08)
[2017-01-08] VITALS (14 sets, daily range): BP systolic 81–114; BP diastolic 50–63; PULSE 84–96; RESP 14–32; TEMP 97.9–98.2; O2SAT 94–99
[2017-01-08] MEDS: CIPROFLOXACIN 400 MG PREMIX 200 ML IV SCH ×3 (00:47→23:13)
[2017-01-08] MEDS: SODIUM CHLOR 0.9% 1000 ML INJ 1,000 ML IV SCH ×3 (00:47→22:45)
[2017-01-08] MEDS: metroNIDAZOLE 500 MG INJ 100 ML IV SCH ×5 (00:47→21:50)
[2017-01-08] MEDS: MORPHINE SULFATE 4 MG/ML INJ IV PRN ×3 (00:58→17:54)
--- NOTE | 2017-01-08 03:02 | RADRPT ---
EXAM DATE/TIME: 01/08/2017 01:37 [facility] COMPARISON: CHEST PA & LAT, January 07, 2017, 6:08. INDICATIONS : Short of breath. MEDICAL HISTORY : Chronic obstructive pulmonary disease. SURGICAL HISTORY : Lobectomy. ENCOUNTER: Subsequent ACUITY: 2 days PAIN SCORE: Non-responsive. LOCATION: Bilateral chest FINDINGS: Mild interstitial prominence and hazy airspace disease at the right lung base new from previous. Hear t size normal. Hyperinflation and attenuated lung markings. Aortic calcification. CONCLUSION: Developing airspace disease at the right lung base. Carl Purcell MD on January 08, 2017 at 3:00 Board Certified Radiologist. This report was verified electronically.
[2017-01-08 03:41] LABS: AUTOMATED NEUTROPHIL # 6.7 TH/MM3 (1.8-7.7); BASOPHIL % 0.2 % (0.0-2.0); EOSINOPHIL % 0.1 % (0.0-4.0); HEMATOCRIT 36.6 % (35.0-46.0); LYMPH % 4.1 % (9.0-44.0); LYMPHOCYTE # 0.3 TH/MM3 (1.0-4.8); MEAN CELL VOLUME 107.5 FL (80.0-100.0); MEAN CORPUSCULAR HEMOGLOBIN 37.3 PG (27.0-34.0); MEAN CORPUSCULAR HGB CONC 34.7 % (32.0-36.0); MONO % 3.6 % (0.0-8.0); PLATELET COUNT 188 TH/MM3 (150-450); RED CELL DISTRIBUTION WIDTH 14.4 % (11.6-17.2); WHITE BLOOD COUNT 7.3 TH/MM3 (4.0-11.0)
[2017-01-08 03:42] LABS: HEMO FLAGS AUTO DIFF
[2017-01-08] MEDS: RESP: ALBUTEROL 2.5 MG/IPRATROPIUM 0.5 MG NEB (SCH) INH ×5 (03:49→20:03)
[2017-01-08 03:55] LABS: APTT (PATIENT) 34.1 SEC (24.3-30.1); INTERNATIONAL NORMALIZED RATIO 1.3 RATIO; PROTHROMBIN TIME - PATIENT 14.2 SEC (9.8-11.6)
[2017-01-08] MEDS: CHLORHEXIDINE GLUCONATE 2 % 1 PACK (2 CLOTHS) TOP SCH (04:00)
[2017-01-08 04:07] LABS: ALT (GPT) 13 U/L (10-53); ANION GAP 9 MEQ/L (5-15); AST (GOT) 16 U/L (15-37); BICARBONATE 24.6 MEQ/L (21.0-32.0); BLOOD UREA NITROGEN 17 MG/DL (7-18); CHLORIDE 109 MEQ/L (98-107); GLOMERULAR FILTRATION RATE 117 ML/MIN (>89); MAGNESIUM 1.1 MG/DL (1.5-2.5); POTASSIUM 3.5 MEQ/L (3.5-5.1); SODIUM (NA) 143 MEQ/L (136-145)
[2017-01-08 04:09] LABS: ALKALINE PHOSPHATASE 31 U/L (45-117); TOTAL BILIRUBIN ADULT 0.4 MG/DL (0.2-1.0)
[2017-01-08 04:49] LABS: BANDS 64 % (0-6); NEUTROPHIL # MANUAL DIFF 6.9 TH/MM3 (1.8-7.7); POLYS (SEG NEUTROPHILS) 30 % (16-70); WBC DIFF SAMPLE 100
[2017-01-08 04:50] LABS: PLATELET ESTIMATE SMEAR NORMAL (NORMAL); PLATELET MORPHOLOGY NORMAL (NORMAL); SCAN/DIFF FINAL DIFF MANUAL
[2017-01-08] MEDS: INSULIN NovoLIN REGULAR SUPPLEMENTAL SCALE SQ SCH ×4 (05:49→17:53)
--- NOTE | 2017-01-08 07:00 | HHI.CCPN ---
Subjective Remarks/Hospital Course 71-year-old female. Date of admission 01/07/2017. 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 She presents to the [facility] with acute onset at 9 PM last night of abdominal pain. 10 out of 10. Sharp and stabbing without relief.I associated with nausea and vomiting. She states he's had abdominal pain "off and on" for the past month without relief. She states that she had an appointment with her primary on January 19 but could not wait until then. She was given Solu-Medrol 125 mg IV 1 and a DuoNeb treatment and placed on [address] scan abdomen pelvis reveals free peritoneal air without, free fluid within the abdomen, moderate hiatal hernia and sigmoid diverticulosis. Blood cultures 2 and Z[address] was ordered[address] Dr[address] ho was contacted and requested admission to the avionic technician with a consultation to him. He will see here at [facility]. She states she had surgery multiple years ago to remove benign tumors from her abdomen at [facility] in [place] and agrees to admit Currently, patient requesting morphine for pain management. Hemodynamic stable. On 3 L nasal cannula Subjective 01/08: Currently afebrile. Pain currently 4-10 management with IV morphine when necessary. Sharp stabbing such clotting. Note is 64% bandemia this a.m. Still considering surgery. Hemodynamically stable. Objective Vital Signs Date Time Temp Pulse Resp B/P Pulse Ox O2 Delivery O2 Flow Rate FiO2 01/08/17 04:00 96 01/08/17 04:00 98.2 21 93/54 96 01/07/17 20:28 Nasal Cannula 4.00 Intake and Output 01/07/17 01/07/17 01/08/17 08:00 16:00 00:00 Intake Total 2541 ml 756 ml Output Total 150 ml 150 ml Balance -150 ml 2391 ml 756 ml Result Diagram: 01/08/17 0300 01/08/17 0330 Other Results Microbiology Date/Time Procedure Status Source Growth 01/07/17 08:05 Aerobic Blood Culture Received Blood Peripheral Pending 01/07/17 08:05 Anaerobic Blood Culture Received Blood Peripheral Pending Imaging Last Impressions Chest X-Ray 01/08/17 0000 Signed Impressions: Service Date/Time: December 01:37 - CONCLUSION: Developing airspace disease at the right lung base. Carl Purcell MD Abdomen/Pelvis CT 01/07/17 0553 Signed Impressions: Service Date/Time: Saturday, January 07, 2017 07:07 - CONCLUSION: 1. There is a small volume of free intraperitoneal air suggestive of perforated bowel. The site of perforation is not identified however. 2. There is also a small volume of free fluid in the abdomen and pelvis with associated peritoneal enhancement. Enhancement of the peritoneum is typically associated with infection, hemorrhage, or malignancy. 3. Nonacute findings include moderate size hiatal hernia, severe atherosclerotic disease, and sigmoid diverticulosis. These findings were discussed with Dr. Chiang via telephone. Joo Mc MD Objective Remarks GENERAL: 71-year-old female, quite cachectic currently resting in bed in mild distress secondary to pain SKIN: Warm and dry. No rash HEAD: Atraumatic. Normocephalic. EYES: Pupils equal and round about 2 mm bilaterally and reactive. No scleral icterus. No injection or drainage. ENT: No nasal bleeding or discharge. Mucous membranes pink and moist. NECK: Trachea midline. No JVD. CARDIOVASCULAR: Regular rate and rhythm. S1, S2. No S4. Without murmur RESPIRATORY: Diminished breath sounds throughout. Positive and extremities.. Breath sounds equal bilaterally. GASTROINTESTINAL: Abdomen firm, tender palpation with voluntary guarding epigastric region. No rigidity. Hypoactive bowel sounds appreciated MUSCULOSKELETAL: Extremities without any significant peripheral edema. No obvious deformities. NEUROLOGICAL: Awake and alert. No obvious cranial nerve deficits. Motor grossly within normal limits. Five out of 5 muscle strength in the arms and legs. Normal speech. PSYCHIATRIC: Appropriate mood and affect; insight and judgment normal. A/P Assessment and Plan Neuro/Psych: Abdominal pain NOS management Acetaminophen for fever [place]/morphine for pain management CV: History of hypertension Atherosclerotic vascular disease Patient is on losartan 25 mg daily Norvasc 5 milligrams daily at home for hypertension. These have currently been held due to borderline blood pressures. Resume when clinically indicated EKG revealed normal sinus rhythm with normal NH/QRS and QT intervals Will provide as needed blood pressure medication if needed Currently on normal saline at 84 cc an hour. Currently not requiring antihypertensives and/or vasopressors Lactate 1.4within normal limits Resp: COPD History of lung cancer status post left upper lobe lobectomy Nasal cannula to maintain saturations greater than or equal to 92%. Currently on 4 L Incentive spirometry while awake Bronchodilator therapy with DuoNeb's every 4 hours and albuterol every 2 hours breakthrough for dyspnea Add Symbicort 160/4.5 2 puffs twice a day Anoro Ellipta inhalation daily at home. This is been held Chest x-ray revealed emphysematous times changes bilaterally with possible early right pleural effusion GI: Free intraperitoneal air Hiatal hernia Sigmoid diverticulosis History of removal of 2 benign abdominal masses Low albumin CT abdomen/pelvis revealed free intracranial air unknown source. Free fluid within the abdomen. Hiatal hernia and liver cyst and endoscopic vascular disease and sigmoid diverticulosis. Dr. ho/surgery consulted. Patient currently pondering surgical intervention. Last night requested conservative observation Protonix 40 mg IV twice a day for GI prophylaxis LFTs within normal limits. Bilirubin within normal limits. : Currently refusing Jane. Endo: Sliding-scale insulin if indicated to maintain euglycemia Renal: Monitor urine output closely. Accurate I's and O's BMP within normal limits. Follow BMP in a.m. Heme: Macrocytosis Polycythemia likely secondary to dehydration Follow-up CBC in AM. B12,TSH within normal limits. Folate low at 2.3. Follow-up peripheral smear for macrocytosis ID: Likely peritonitis from ruptured gastric ulcer/diverticulit? Received 1 dose of Zosyn at [place]. Currently on Cipro/Flagyl and Diflucan day 2 Pertinent cultures Blood cultures - 01/07 -results pending FEN: Hypo-magnesium Replace electrolytes as clinically indicated per ICU electrolyte protocol 3 g mag sulfate IV 1 now. Recheck in 1600 MSK: PT/OT evaluate and treat Access - Peripheral IV. Patient gave verbal consent for Okay for central line if indicated. Benefits and risks discussed at length. Prophylaxis - GI - Protonix IV twice a day - DVT - SCD/pharmacological prophylaxis when okay with surgery Critical Care: The total critical care time was 35 minutes. Time to perform other separately billable procedures was not included in the critical care time. Navi Lanza MD Jan 08, 2017 06:59
[2017-01-08] MEDS ORDERED: POTASSIUM CHLOR 10 MEQ PREMIX 100 ML IV ONE (07:15)
[2017-01-08] MEDS ORDERED: FOLIC ACID 1 MG/0.2 ML INJ IM ONE ×2 (07:15→10:00)
[2017-01-08] MEDS: SODIUM CHLORIDE 0.9% FLUSH 5 ML FLUSH IV FLUSH SCH ×2 (07:23→21:49)
[2017-01-08] MEDS: MAGNESIUM SULFATE 1 GM PREMIX 100 ML IV SCH ×3 (08:39→09:26)
[2017-01-08] MEDS: PANTOPRAZOLE SODIUM 40 MG VIAL IV SCH ×2 (08:40→21:49)
[2017-01-08] MEDS: BUDESONIDE-FORMOTEROL 160/4.5 MCG INHALER INH SCH ×2 (09:00→21:00)
[2017-01-08] MEDS ORDERED: FOLIC ACID INJ 1 MG in SYRINGE/BAG 1 EA IM ONE (09:00)
[2017-01-08] MEDS: FLUCONAZOLE/NACL 200 MG/100 ML IV SCH (12:42)
--- NOTE | 2017-01-08 14:44 | EKG ---
Date Performed: 01/07/2017 Time Performed: 10:23:58 PTAGE: 71 years EKG: Sinus rhythm Extensive T wave changes are nonspecific Borderline ECG Compared to prior tracing no significant eleazar nge PREVIOUS TRACING 01/07/2017 05.35.58 DOCTOR: Pawan Pritchard Interpretating Date/Time 01/08/2017 14:40:40
[2017-01-08 15:13] LABS: MAGNESIUM 2.4 MG/DL (1.5-2.5); POTASSIUM 3.3 MEQ/L (3.5-5.1)
[2017-01-08] MEDS: POTASSIUM CHLOR 20 MEQ PREMIX 100 ML IV PRN (15:29)
[2017-01-08] MEDS ORDERED: NOREPINEPHRINE INJ 4 MG in SODIUM CHLOR 0.9% 250 ML INJ 246 ML IV SCH (16:30)
[2017-01-08] MEDS ORDERED: SODIUM CHLOR 0.9% 1000 ML INJ 1,000 ML IV ONE (16:30)
[2017-01-08] MEDS ORDERED: TERBUTALINE INJ 1 MG/ML AMP SQ PRN (16:30)
--- NOTE | 2017-01-08 16:30 | HHI.PR ---
Subjective Subjective Notes Resting in bed Pain better today Objective Vitals/I&O Vital Signs Date Time Temp Pulse Resp B/P Pulse Ox O2 Delivery O2 Flow Rate FiO2 01/08/17 16:00 98.1 94 32 81/50 99 01/08/17 08:01 Nasal Cannula 4.00 Labs Laboratory Tests Test 01/08/17 01/08/17 01/08/17 03:00 03:30 14:35 White Blood Count 7.3 Red Blood Count 3.40 Hemoglobin 12.7 Hematocrit 36.6 Mean Corpuscular Volume 107.5 Mean Corpuscular Hemoglobin 37.3 Mean Corpuscular Hemoglobin 34.7 Concent Red Cell Distribution Width 14.4 Platelet Count 188 Mean Platelet Volume 7.1 Neutrophils (%) (Auto) 92.0 Lymphocytes (%) (Auto) 4.1 Monocytes (%) (Auto) 3.6 Eosinophils (%) (Auto) 0.1 Basophils (%) (Auto) 0.2 Neutrophils # (Auto) 6.7 Lymphocytes # (Auto) 0.3 Monocytes # (Auto) 0.3 Eosinophils # (Auto) 0.0 Basophils # (Auto) 0.0 CBC Comment AUTO DIFF Differential Total Cells 100 Counted Neutrophils % (Manual) 30 Band Neutrophils % 64 Lymphocytes % 4 Monocytes % 2 Neutrophils # (Manual) 6.9 Differential Comment FINAL DIFF MANUAL Platelet Estimate NORMAL Platelet Morphology Comment NORMAL Prothrombin Time 14.2 Prothromb Time International 1.3 Ratio Activated Partial 34.1 Thromboplast Time Sodium Level 143 Potassium Level 3.5 3.3 Chloride Level 109 Carbon Dioxide Level 24.6 Anion Gap 9 Blood Urea Nitrogen 17 Creatinine 0.52 Estimat Glomerular Filtration 117 Rate Random Glucose 108 Lactic Acid Level 1.4 Calcium Level 7.8 Phosphorus Level 3.0 Magnesium Level 1.1 2.4 Total Bilirubin 0.4 Aspartate Amino Transf 16 (AST/SGOT) Alanine Aminotransferase 13 (ALT/SGPT) Alkaline Phosphatase 31 Total Protein 4.9 Albumin 2.2 Date/Time Procedure Status Source Growth 01/07/17 08:05 Aerobic Blood Culture - Preliminary Resulted Blood Peripheral NO GROWTH IN 1 DAY 01/07/17 08:05 Anaerobic Blood Culture - Preliminary Resulted Gram Negative Luis M Cardiovascular: Regular Lungs: Clear Abdomen: Other (minimal abdominal pain with palpation; soft ) Extremities: No edema A/P Assessment and Plan 71 year old female with free air seen on CT; likely perforated viscous -Clinical exam has improved -Start clear liquids -Monitor vitals -At this time will continue non -op treatment I CERTIFY AND ATTEST THAT I PERSONALLY EXAMINED THIS PATIENT IN THEIR ROOM WITH THE COLLEGE PROFESSOR PRESENT. MS SARAH IS DOCUMENTING OUR VISIT IN THE EMR AND ENTERED ORDERS UNDER MY DIRECT SUPERVISION. I DISCUSSED THE CARE PLAN WITH THE PATIENT AND THEIR [facility] STAFF. Conchis May MD, FACS Jan 08, 2017 16:30 Rip Elias MD Jan 17, 2017 13:37
--- NOTE | 2017-01-08 17:07 | PD.PROCEDR ---
Central Line Procedure REASON FOR PROCEDURE Central venous access PROCEDURE PERFORMED Central line placement: Left IJ CVL CONSENT Informed consent for procedure was obtained. The risks and benefits of the procedure were discussed to include but limited to bleeding, clot formation, infection, and even . ANESTHESIA Local injection of 1% Lidocaine DESCRIPTION OF THE PROCEDURE The patient was placed in supine, mild Trendelenburg position. The area was exposed and cleansed with ChloraPrep, times two. Large sterile drape was used to cover the patient, with the site exposed, under sterile conditions including cap, face mask, sterile gown, and sterile gloves. On single attempt, the introducer needle was inserted with negative pressure in syringe and venous flash was obtained. The guide wire was then advanced without any restriction and the needle was removed. The dilator was used without any complications. Using Seldinger technique the triple-lumen catheter was advanced over the guide wire to a depth of 20 centimeters. The guide wire was removed. All ports were aspirated with dark venous blood return and flushed easily with sterile saline. All ports were capped. Antibiotic disc was placed around central line at puncture site. The central line was secured to the skin with two interrupted 2.0 silk sutures. The area was bandaged with sterile see-through central line bandage. RADIOLOGICAL DATA Ultrasound guidance was used to locate left internal jugular vein. Doppler/ color flow was used to confirm venous flow. COMPLICATIONS: No apparent complications ESTIMATED BLOOD LOSS: Less than 1 cc. Navi Lanza MD Jan 08, 2017 17:07
[2017-01-08] MEDS ORDERED: SODIUM CHLORIDE 0.9% FLUSH 10 ML FLUSH IVF PRN (17:15)
--- NOTE | 2017-01-08 17:49 | RADRPT ---
EXAM DATE/TIME: 01/08/2017 17:16 [facility] COMPARISON: CHEST SINGLE AP, January 08, 2017, 1:37. INDICATIONS : Central Line placement. MEDICAL HISTORY : Carcinoma, lung. Hypertension. SURGICAL HISTORY : Lobectomy. ENCOUNTER: Subsequent ACUITY: 3 days PAIN SCORE: 0/10 LOCATION: Bilateral chest FINDINGS: A left internal jugular central line has its tip in the superior vena cava. There is no pneumothorax. Focal patchiness is noted within the right lung base consistent with atelectasis and/or pneumonia. Clinical correlation is recommended. The heart is stable. CONCLUSION: 1. No pneumothorax status post placement of left internal jugular central line which has its tip in t he superior vena cava. 2. Right basilar patchiness consistent with atelectasis and/or infiltrate. Dino Parsons MD on January 08, 2017 at 17:40 Board Certified Radiologist. This report was verified electronically.
[2017-01-08] MEDS ORDERED: ALBUMIN HUMAN 25% 25 GM/100 ML BAGP IV ONE (18:00)
[2017-01-09] VITALS (15 sets, daily range): BP systolic 92–106; BP diastolic 53–60; PULSE 84–135; RESP 19–28; TEMP 98.1–98.6; O2SAT 91–99
[2017-01-09] MEDS: RESP: ALBUTEROL 2.5 MG/IPRATROPIUM 0.5 MG NEB (SCH) INH ×3 (00:12→07:26)
[2017-01-09] MEDS: MORPHINE SULFATE 4 MG/ML INJ IV PRN (01:59)
[2017-01-09] MEDS: ONDANSETRON HCL 4 MG/2 ML VIAL IV PRN ×2 (01:59→06:16)
[2017-01-09] MEDS: CHLORHEXIDINE GLUCONATE 2 % 1 PACK (2 CLOTHS) TOP SCH (04:00)
[2017-01-09] MEDS: metroNIDAZOLE 500 MG INJ 100 ML IV SCH ×4 (05:52→23:56)
[2017-01-09] MEDS: INSULIN NovoLIN REGULAR SUPPLEMENTAL SCALE SQ SCH ×5 (06:00→21:00)
[2017-01-09 06:13] LABS: AUTOMATED NEUTROPHIL # 8.9 TH/MM3 (1.8-7.7); BASOPHIL % 0.2 % (0.0-2.0); LYMPH % 3.7 % (9.0-44.0); LYMPHOCYTE # 0.4 TH/MM3 (1.0-4.8); MEAN CELL VOLUME 109.7 FL (80.0-100.0); MEAN CORPUSCULAR HEMOGLOBIN 36.7 PG (27.0-34.0); MEAN CORPUSCULAR HGB CONC 33.5 % (32.0-36.0); MONO % 4.6 % (0.0-8.0); NEUT % 91.5 % (16.0-70.0); PLATELET COUNT 187 TH/MM3 (150-450); RED BLOOD COUNT 3.01 MIL/MM3 (4.00-5.30); WHITE BLOOD COUNT 9.8 TH/MM3 (4.0-11.0)
[2017-01-09 06:15] LABS: HEMO FLAGS AUTO DIFF
--- NOTE | 2017-01-09 06:31 | RADRPT ---
EXAM DATE/TIME: 01/09/2017 05:06 [facility] COMPARISON: CHEST SINGLE AP, January 08, 2017, 17:16. INDICATIONS : Shortness of breath. MEDICAL HISTORY : Hypertension. Carcinoma, lung. SURGICAL HISTORY : Lobectomy. ENCOUNTER: Subsequent ACUITY: 2 days PAIN SCORE: Non-responsive. LOCATION: Bilateral chest FINDINGS: A single portable frontal view of the chest shows worsening bibasilar consolidation. Tiny effusions a lso noted. Heart normal in size. Left-sided central line noted. CONCLUSION: Worsening bibasilar infiltrates with tiny effusions. Agusto Funes Jr., MD on January 09, 2017 at 6:29 Board Certified Radiologist. This report was verified electronically.
--- NOTE | 2017-01-09 06:31 | RADRPT ---
EXAM DATE/TIME: 01/09/2017 05:08 [facility] COMPARISON: No previous studies available for comparison. INDICATIONS : Distention. MEDICAL HISTORY : Hypertension. Carcinoma, lung. SURGICAL HISTORY : Lobectomy. ENCOUNTER: Subsequent ACUITY: 2 days PAIN SCORE: Non-responsive. LOCATION: abdomen, all quadrants. FINDINGS: Supine view of the abdomen was performed. The abdominal bowel gas pattern is normal. No abnormal ma sses, calcifications, or organomegaly is seen. The osseous structures are unremarkable. CONCLUSION: Normal examination. Agusto Funes Jr., MD on January 09, 2017 at 6:29 Board Certified Radiologist. This report was verified electronically.
[2017-01-09 06:50] LABS: ALKALINE PHOSPHATASE 44 U/L (45-117); ALT (GPT) 20 U/L (10-53); ANION GAP 8 MEQ/L (5-15); AST (GOT) 31 U/L (15-37); BICARBONATE 22.1 MEQ/L (21.0-32.0); BLOOD UREA NITROGEN 18 MG/DL (7-18); CHLORIDE 108 MEQ/L (98-107); CREATINE KINASE 495 U/L (26-192); GLOMERULAR FILTRATION RATE 131 ML/MIN (>89); POTASSIUM 4.3 MEQ/L (3.5-5.1); SODIUM (NA) 138 MEQ/L (136-145); TOTAL BILIRUBIN ADULT 0.3 MG/DL (0.2-1.0)
[2017-01-09 07:17] LABS: CKMB 6.4 NG/ML (0.5-3.6)
[2017-01-09 07:20] LABS: BANDS 26 % (0-6); NEUTROPHIL # MANUAL DIFF 9.1 TH/MM3 (1.8-7.7); POLYS (SEG NEUTROPHILS) 67 % (16-70); WBC DIFF SAMPLE 100
[2017-01-09 07:21] LABS: PLATELET ESTIMATE SMEAR NORMAL (NORMAL); PLATELET MORPHOLOGY NORMAL (NORMAL)
[2017-01-09 07:22] LABS: DOHLE BODIES PRESENT (NONE SEEN)
[2017-01-09 07:24] LABS: SCAN/DIFF FINAL DIFF MANUAL
--- NOTE | 2017-01-09 07:44 | HHI.CCPN ---
Subjective Remarks/Hospital Course 71-year-old female. Date of admission 01/07/2017. 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 She presents to the [place] ED with acute onset at 9 PM last night of abdominal pain. 10 out of 10. Sharp and stabbing without relief.I associated with nausea and vomiting. She states he's had abdominal pain "off and on" for the past month without relief. She states that she had an appointment with her primary on January 19 but could not wait until then. She was given Solu-Medrol 125 mg IV 1 and a DuoNeb treatment and placed on [address] scan abdomen pelvis reveals free peritoneal air without, free fluid within the abdomen, moderate hiatal hernia and sigmoid diverticulosis. Blood cultures 2 and Zos[address] was ordered. Dr. ho was contacted and requested admission to the senior engineering technician with a consultation to him. He will see here at [facility]. She states she had surgery multiple years ago to remove benign tumors from her abdomen at [facility] in [place] and agrees to admit Currently, patient requesting morphine for pain management. Hemodynamic stable. On 3 L nasal cannula 01/08: Currently afebrile. Pain currently 4-10 management with IV morphine when necessary. Sharp stabbing such clotting. Note is 64% bandemia this a.m. Still considering surgery. Hemodynamically stable. Subjective 01/09: Episode of tachycardia overnight resolved. Very anxious at times when she states she can't breathe, possibly relating to DuoNeb therapy?. Adjusting medications see below. Pain currently 2 out of 10. Blood pressure low normal overnight. Decreased urine output noted. Objective Vital Signs Date Time Temp Pulse Resp B/P Pulse Ox O2 Delivery O2 Flow Rate FiO2 01/09/17 07:27 99 Nasal Cannula 5.00 01/09/17 06:00 104 01/08/17 16:00 98.1 32 81/50 Intake and Output 01/08/17 01/08/17 01/09/17 08:00 16:00 00:00 Intake Total 656 ml 1489 ml Balance 656 ml 1489 ml Result Diagram: 01/09/17 0555 01/09/17 0555 Other Results Microbiology Date/Time Procedure Status Source Growth 01/07/17 08:05 Aerobic Blood Culture - Preliminary Resulted Blood Peripheral NO GROWTH IN 1 DAY 01/07/17 08:05 Anaerobic Blood Culture - Preliminary Resulted Gram Negative Luis M Imaging Last Impressions Chest X-Ray 01/09/17 06 Signed Impressions: Service Date/Time: Monday, January 09, 2017 05:06 - CONCLUSION: Worsening bibasilar infiltrates with tiny effusions. Agusto Funes Jr., MD Abdomen X-Ray 01/09/17 06 Signed Impressions: Service Date/Time: Monday, January 09, 2017 05:08 - CONCLUSION: Normal examination. Agusto Funes Jr., MD Abdomen/Pelvis CT 01/07/17 0553 Signed Impressions: Service Date/Time: Saturday, January 07, 2017 07:07 - CONCLUSION: 1. There is a small volume of free intraperitoneal air suggestive of perforated bowel. The site of perforation is not identified however. 2. There is also a small volume of free fluid in the abdomen and pelvis with associated peritoneal enhancement. Enhancement of the peritoneum is typically associated with infection, hemorrhage, or malignancy. 3. Nonacute findings include moderate size hiatal hernia, severe atherosclerotic disease, and sigmoid diverticulosis. These findings were discussed with Dr. Chiang via telephone. Joo Mc MD Objective Remarks GENERAL: 71-year-old female, quite cachectic currently resting in bed in no acute distress SKIN: Warm and dry. No rash HEAD: Atraumatic. Normocephalic. EYES: Pupils equal and round about 2 mm bilaterally and reactive. No scleral icterus. No injection or drainage. ENT: No nasal bleeding or discharge. Mucous membranes pink and moist. NECK: Trachea midline. No JVD. CARDIOVASCULAR: Regular rate and rhythm. S1, S2. No S4. Without murmur RESPIRATORY: Diminished breath sounds throughout. Positive end expiratory wheeze. Breath sounds equal bilaterally. GASTROINTESTINAL: Abdomen firm, tender palpation with voluntary guarding epigastric region. No rigidity. Hypoactive bowel sounds appreciated MUSCULOSKELETAL: Extremities without any significant peripheral edema. No obvious deformities. NEUROLOGICAL: Awake and alert. No obvious cranial nerve deficits. Motor grossly within normal limits. Five out of 5 muscle strength in the arms and legs. Normal speech. PSYCHIATRIC: Appropriate mood and affect; insight and judgment normal. Vascular Central Line Catheter: Yes Assessment to: Continue Date of Insertion: Jan 08, 2017 Line: Central Venous Catheter Side: Left Location: Internal, Jugular A/P Assessment and Plan Neuro/Psych: Abdominal pain NOS management Acetaminophen for fever [place]/morphine for pain management Melatonin 5 mg when necessary for insomnia CV: History of hypertension Atherosclerotic vascular disease Patient is on losartan 25 mg daily Norvasc 5 milligrams daily at home for hypertension. These have currently been held due to borderline blood pressures. Resume when clinically indicated EKG revealed normal sinus rhythm with normal SD/QRS and QT intervals Will provide as needed blood pressure medication if needed Currently on normal saline at 84 cc an hour. Currently not requiring antihypertensives and/or vasopressors Lactate was 4.1 yesterday currently 1.0. Resp: COPD History of lung cancer status post left upper lobe lobectomy Nasal cannula to maintain saturations greater than or equal to 92%. Currently on 4 L Incentive spirometry while awake Bronchodilator therapy with albuterol HFA 4 hours and albuterol nebulizers every 2 hours breakthrough for dyspnea Add Symbicort 160/4.5 2 puffs twice a day and Spiriva 18 inhalation daily Anoro Ellipta inhalation daily at home. This is been held Chest x-ray revealed worsening emphysematous times changes bilaterally with right pleural effusion GI: Free intraperitoneal air Hiatal hernia Sigmoid diverticulosis History of removal of 2 benign abdominal masses Low albumin CT abdomen/pelvis revealed free intracranial air unknown source. Free fluid within the abdomen. Hiatal hernia and liver cyst and endoscopic vascular disease and sigmoid diverticulosis. Dr. ho/surgery consulted. Currently with conservative management On clear liquid diet Protonix 40 mg IV twice a day for GI prophylaxis LFTs within normal limits. Bilirubin within normal limits. : Jane catheter for accurate I's and O's in a critically ill patient Endo: Sliding-scale insulin if indicated to maintain euglycemia Renal: Monitor urine output closely. Accurate I's and O's BMP within normal limits. Follow BMP in a.m. Heme: Macrocytosis Normocytic anemia Follow-up CBC in AM. B12,TSH within normal limits. Folate low at 2.3. Follow-up peripheral smear for macrocytosis ID: Likely peritonitis from ruptured gastric ulcer/diverticulit? Positive cocci/gram-negative luis m bacteremia Received 1 dose of Zosyn at [place]. Currently on Cipro/Flagyl and Diflucan day 3 Pertinent cultures Blood cultures - 01/07 -Gram-positive cocci/gram-negative luis m FEN: Replace electrolytes as clinically indicated per ICU electrolyte protocol MSK: PT/OT evaluate and treat Access -Left IJ TLC day #2 placed 01/08 Prophylaxis - GI - Protonix IV twice a day - DVT - SCD/pharmacological prophylaxis when okay with surgery Critical Care: The total critical care time was 35 minutes. Time to perform other separately billable procedures was not included in the critical care time. Navi Lanza MD Jan 09, 2017 07:44
[2017-01-09] MEDS ORDERED: RESP: ALBUTEROL 2.5 MG/3 ML NEB (PRN) NEB (08:00)
[2017-01-09] MEDS ORDERED: ALBUTEROL SULFATE 90 MCG/ACT HFA 8 GM INHALER INH SCH (08:00)
[2017-01-09] MEDS: SODIUM CHLORIDE 0.9% FLUSH 5 ML FLUSH IV FLUSH SCH ×2 (08:04→20:58)
[2017-01-09] MEDS: SODIUM CHLORIDE 0.9% FLUSH 10 ML FLUSH IVF SCH (08:04)
[2017-01-09] MEDS ORDERED: TIOTROPIUM BROMIDE 18 MCG INH INH SCH (09:00)
[2017-01-09] MEDS: BUDESONIDE-FORMOTEROL 160/4.5 MCG INHALER INH SCH ×2 (09:00→21:00)
[2017-01-09] MEDS: PANTOPRAZOLE SODIUM 40 MG VIAL IV SCH (09:48)
[2017-01-09] MEDS: SODIUM CHLOR 0.9% 1000 ML INJ 1,000 ML IV SCH ×2 (09:49→23:57)
[2017-01-09] MEDS: HEPARIN SODIUM - SQ 10,000 UNITS/ML VIAL SQ SCH ×2 (09:49→20:52)
[2017-01-09] MEDS: UMECLIDINIUM 62.5 MCG/VILANTEROL 25 MCG INHALER INH SCH (10:33)
--- NOTE | 2017-01-09 11:06 | HHI.PR ---
Subjective Subjective Notes Resting in bed Feels hungry Daughter at bedside Objective Vitals/I&O Vital Signs Date Time Temp Pulse Resp B/P Pulse Ox O2 Delivery O2 Flow Rate FiO2 01/09/17 07:27 99 Nasal Cannula 5.00 01/09/17 06:00 104 01/09/17 04:00 98.6 19 92/53 Labs Laboratory Tests Test 01/08/17 01/08/17 01/09/17 14:35 17:48 05:55 Potassium Level 3.3 4.3 Magnesium Level 2.4 2.0 Lactic Acid Level 4.1 1.0 White Blood Count 9.8 Red Blood Count 3.01 Hemoglobin 11.1 Hematocrit 33.0 Mean Corpuscular Volume 109.7 Mean Corpuscular Hemoglobin 36.7 Mean Corpuscular Hemoglobin 33.5 Concent Red Cell Distribution Width 15.0 Platelet Count 187 Mean Platelet Volume 7.1 Neutrophils (%) (Auto) 91.5 Lymphocytes (%) (Auto) 3.7 Monocytes (%) (Auto) 4.6 Eosinophils (%) (Auto) 0.0 Basophils (%) (Auto) 0.2 Neutrophils # (Auto) 8.9 Lymphocytes # (Auto) 0.4 Monocytes # (Auto) 0.4 Eosinophils # (Auto) 0.0 Basophils # (Auto) 0.0 CBC Comment AUTO DIFF Differential Total Cells 100 Counted Neutrophils % (Manual) 67 Band Neutrophils % 26 Lymphocytes % 4 Monocytes % 3 Neutrophils # (Manual) 9.1 Differential Comment FINAL DIFF MANUAL Dohle Bodies PRESENT Platelet Estimate NORMAL Platelet Morphology Comment NORMAL Sodium Level 138 Chloride Level 108 Carbon Dioxide Level 22.1 Anion Gap 8 Blood Urea Nitrogen 18 Creatinine 0.47 Estimat Glomerular Filtration 131 Rate Random Glucose 71 Calcium Level 8.3 Phosphorus Level 1.9 Total Bilirubin 0.3 Aspartate Amino Transf 31 (AST/SGOT) Alanine Aminotransferase 20 (ALT/SGPT) Alkaline Phosphatase 44 Total Creatine Kinase 495 Creatine Kinase MB 6.4 Creatine Kinase MB % 1.3 Total Protein 5.0 Albumin 2.5 Date/Time Procedure Status Source Growth 01/09/17 08:29 Influenza Types A,B Antigen (SAMANTHA) - Final Complete Nasal Aspirate NEGATIVE FOR FLU A AND B ANTIGEN.... 01/07/17 08:05 Aerobic Blood Culture - Preliminary Resulted Blood Peripheral NO GROWTH IN 1 DAY 01/07/17 08:05 Anaerobic Blood Culture - Preliminary Resulted Gram Negative Luis M Cardiovascular: Regular Lungs: Upper airway course sound Abdomen: Non-distended, Non-tender Extremities: No edema A/P Assessment and Plan 71 year old female with free air seen on CT; likely perforated viscous -Clinical exam has improved -Advance to soft diet -Monitor vitals -Okay to start anticoagulation -At this time will continue non-op treatment -Spoke with Dr. Lanza I CERTIFY AND ATTEST THAT I PERSONALLY EXAMINED THIS PATIENT IN THEIR ROOM WITH THE FOOD SAMPLER PRESENT. MS SARAH IS DOCUMENTING OUR VISIT IN THE EMR AND ENTERED ORDERS UNDER MY DIRECT SUPERVISION. I DISCUSSED THE CARE PLAN WITH THE PATIENT AND THEIR [facility] STAFF. Conchis May MD, FACS Jan 09, 2017 11:06 Rip Elias MD Jan 17, 2017 13:41
[2017-01-09] MEDS: CIPROFLOXACIN 400 MG PREMIX 200 ML IV SCH (13:05)
[2017-01-09] MEDS: FLUCONAZOLE/NACL 200 MG/100 ML IV SCH (13:06)
[2017-01-09] MEDS: ACETAMINOPHEN/HYDROcodone 325 MG/5 MG TAB PO PRN (14:45)
--- NOTE | 2017-01-09 15:53 | PD.ID.CON ---
History of Present Illness Service ID Consult Requested By Dr Lanza Reason for Consult GNR bacteremia Primary Care Physician Jonathan Headley III, MD Diagnoses: History of Present Illness 71-year-old female with a h/o tobbacoism a nd COPD was admitted presents to the [facility] ED01/07/2017. with acute onset of severe abdominal pain x several hrs Apparently she had abdominal pain "off and on" for the past month prior to presentation Her CT scan abdomen pelvis reveals free peritoneal air without, free fluid within the abdomen, moderate hiatal hernia and sigmoid diverticulosis. Zosyn was started, the stitched to cipro/flagyl/fluconazol Dr. Elias was contacted and recommended observation and conservatinve tx, reserving surgery in case of clinical deterioration Blood cultures 2 are now growing GNR after 2 days in both anerobic bottles and GPC in 1/2 anerobic bottles Currently, patient is hemodynamically stable. On 3 L nasal cannula; afebrile Denies abdominal pain Takes pO , started on regular diet today Review of Systems Except as stated in HPI: all other systems reviewed are Neg Past Family Social History Allergies: Coded Allergies: Azithromycin (Verified Allergy, Severe, Anaphylaxis, 01/07/17) Past Medical History COPD, not on supplemental oxygen at home, Hypertension History of lung cancer History of benign abdominal masses unknown type Past Surgical History history of left upper lobe lobectomy secondary to cancer [facility] 2005 Removal abdominal masses [address] [facility] 2/2 endometriosis Active Ordered Medications Medications where reviewed in EMR Antibiotics Include: cipro flagyl fluconazole Family History Positive for heart disease, cancer and hypertension Social History 60 pack yrs and still smoking. Social alcohol. No IV drug use. Physical Exam Vital Signs Vital Signs Date Time Temp Pulse Resp B/P Pulse Ox O2 Delivery O2 Flow Rate FiO2 01/09/17 14:00 91 01/09/17 12:00 98.4 94 28 100/57 95 01/09/17 12:00 95 01/09/17 10:00 91 01/09/17 08:00 94 01/09/17 08:00 98.4 94 28 100/57 95 01/09/17 07:27 99 Nasal Cannula 5.00 01/09/17 07:00 95 Nasal Cannula 4.00 01/09/17 06:00 104 01/09/17 04:00 98.6 84 19 92/53 98 01/09/17 02:00 135 01/09/17 00:12 92 Nasal Cannula 4.00 01/09/17 00:00 98.6 93 27 105/57 91 01/09/17 00:00 93 01/08/17 22:00 88 01/08/17 20:06 94 Nasal Cannula 4.00 01/08/17 20:00 92 01/08/17 20:00 93 Nasal Cannula 4.00 01/08/17 18:00 91 01/08/17 16:00 98.1 94 32 81/50 99 01/08/17 16:00 91 Physical Exam CONSTITUTIONAL/GENERAL: This is a thin frail elderly patient, in no apparent distress. TUBES/LINES/DRAINS: SKIN: No jaundice, rashes, or lesions. Ecchymoses on upper extremities. Skin temperature appropriate. Not diaphoretic. HEAD: Atraumatic. Normocephalic. EYES: Pupils equal and round and reactive. Extraocular motions intact. No scleral icterus. No injection or drainage. Fundi not examined. ENT: Hearing grossly normal. Nose without bleeding or purulent drainage. Throat without visible erythema, exudates, masses, or lesions. Poor dentition NECK: Trachea midline. Supple, nontender. No palpable thyroid enlargement or nodularity. CARDIOVASCULAR: Regular rate and rhythm without murmurs, gallops, or rubs. No JVD. Peripheral pulses symmetric. RESPIRATORY/CHEST: Symmetric, unlabored respirations. Clear to auscultation. Breath sounds equally diminished bilaterally. No wheezes, rales, or rhonchi. GASTROINTESTINAL: Abdomen soft, non-tender, moderately distended. No hepato- splenomegaly, or palpable masses. No guarding. Bowel sounds present. Well healed atrophic scar of lower laparotomy incision GENITOURINARY: Without palpable bladder distension. Jane catheter in place with clear yellow urine MUSCULOSKELETAL: Extremities without clubbing, cyanosis, or edema. No joint tenderness or effusion noted. No calf tenderness. No mottling or clubbing. LYMPHATICS: No palpable cervical or supraclavicular adenopathy. NEUROLOGICAL: Awake and alert. Motor and sensory grossly within normal limits. Follows commands. Normal speech Moves all extremities. PSYCHIATRIC: No obvious anxiety/depression. no apparent hallucinations or other psychotic thought process. Laboratory Laboratory Tests Test 01/08/17 01/09/17 17:48 05:55 Lactic Acid Level 4.1 1.0 White Blood Count 9.8 Red Blood Count 3.01 Hemoglobin 11.1 Hematocrit 33.0 Mean Corpuscular Volume 109.7 Mean Corpuscular Hemoglobin 36.7 Mean Corpuscular Hemoglobin 33.5 Concent Red Cell Distribution Width 15.0 Platelet Count 187 Mean Platelet Volume 7.1 Neutrophils (%) (Auto) 91.5 Lymphocytes (%) (Auto) 3.7 Monocytes (%) (Auto) 4.6 Eosinophils (%) (Auto) 0.0 Basophils (%) (Auto) 0.2 Neutrophils # (Auto) 8.9 Lymphocytes # (Auto) 0.4 Monocytes # (Auto) 0.4 Eosinophils # (Auto) 0.0 Basophils # (Auto) 0.0 CBC Comment AUTO DIFF Differential Total Cells 100 Counted Neutrophils % (Manual) 67 Band Neutrophils % 26 Lymphocytes % 4 Monocytes % 3 Neutrophils # (Manual) 9.1 Differential Comment FINAL DIFF MANUAL Dohle Bodies PRESENT Platelet Estimate NORMAL Platelet Morphology Comment NORMAL Sodium Level 138 Potassium Level 4.3 Chloride Level 108 Carbon Dioxide Level 22.1 Anion Gap 8 Blood Urea Nitrogen 18 Creatinine 0.47 Estimat Glomerular Filtration 131 Rate Random Glucose 71 Calcium Level 8.3 Phosphorus Level 1.9 Magnesium Level 2.0 Total Bilirubin 0.3 Aspartate Amino Transf 31 (AST/SGOT) Alanine Aminotransferase 20 (ALT/SGPT) Alkaline Phosphatase 44 Total Creatine Kinase 495 Creatine Kinase MB 6.4 Creatine Kinase MB % 1.3 Total Protein 5.0 Albumin 2.5 Date/Time Procedure Status Source Growth 01/09/17 08:29 Influenza Types A,B Antigen (SAMANTHA) - Final Complete Nasal Aspirate NEGATIVE FOR FLU A AND B ANTIGEN.... 01/07/17 08:05 Aerobic Blood Culture - Preliminary Resulted Blood Peripheral NO GROWTH IN 2 DAYS 01/07/17 08:05 Anaerobic Blood Culture - Preliminary Resulted Gram Negative Luis M Result Diagram: 01/09/1755401/09/17554 Imaging Last Impressions Chest X-Ray 01/09/17 06 Signed Impressions: Service Date/Time: Monday, January 09, 2017 05:06 - CONCLUSION: Worsening bibasilar infiltrates with tiny effusions. Agusto Funes Jr., MD Abdomen X-Ray 01/09/17 06 Signed Impressions: Service Date/Time: Monday, January 09, 2017 05:08 - CONCLUSION: Normal examination. Agusto Funes Jr., MD Abdomen/Pelvis CT 01/07/17 0553 Signed Impressions: Service Date/Time: Saturday, January 07, 2017 07:07 - CONCLUSION: 1. There is a small volume of free intraperitoneal air suggestive of perforated bowel. The site of perforation is not identified however. 2. There is also a small volume of free fluid in the abdomen and pelvis with associated peritoneal enhancement. Enhancement of the peritoneum is typically associated with infection, hemorrhage, or malignancy. 3. Nonacute findings include moderate size hiatal hernia, severe atherosclerotic disease, and sigmoid diverticulosis. These findings were discussed with Dr. Chiang via telephone. Joo Mc MD Assessment and Plan Assessment and Plan sp viscus perforation, tolerating non-op treatment Anaerobic sepsis - likely 2/2 viscus perf: GNB, GPC dc cipro, flucomazol - start zosyn Discussed Condition With Graciela Christian MD Jan 09, 2017 15:53
[2017-01-09] MEDS: PIPERACIL-TAZO 3.375 GM PREMIX 50 ML IV SCH ×2 (18:07→23:57)
[2017-01-09] MEDS: PANTOPRAZOLE SOD 40 MG DELAYED RELEASE TAB PO SCH (20:52)
[2017-01-09] MEDS ORDERED: MELATONIN 5 MG TAB PO PRN (21:00)
[2017-01-10] VITALS (14 sets, daily range): BP systolic 96–116; BP diastolic 55–64; PULSE 83–100; RESP 18–25; TEMP 98–98.3; O2SAT 94–98
[2017-01-10] MEDS: MORPHINE SULFATE 4 MG/ML INJ IV PRN (01:56)
[2017-01-10] MEDS: CHLORHEXIDINE GLUCONATE 2 % 1 PACK (2 CLOTHS) TOP SCH (04:00)
[2017-01-10] MEDS: PIPERACIL-TAZO 3.375 GM PREMIX 50 ML IV SCH ×4 (05:30→23:48)
[2017-01-10] MEDS: metroNIDAZOLE 500 MG INJ 100 ML IV SCH ×4 (05:30→21:56)
--- NOTE | 2017-01-10 05:39 | RADRPT ---
EXAM DATE/TIME: 01/10/2017 04:15 [facility] COMPARISON: CHEST SINGLE AP, January 09, 2017, 5:06. INDICATIONS : Shortness of breath, possible pulmonary disease. MEDICAL HISTORY : Hypertension. Carcinoma, lung. SURGICAL HISTORY : Lobectomy. ENCOUNTER: Subsequent ACUITY: 3 days PAIN SCORE: Non-responsive. LOCATION: Bilateral chest FINDINGS: Single frontal view the chest shows no significant change. Bibasilar infiltrates remain. Tiny bilater al pleural effusions persist. Lungs are hyperaerated. Heart is at the upper limits of normal in terms of size. Left-sided central line noted. No pneumothorax. CONCLUSION: Unchanged bibasilar infiltrates and tiny effusions. Agusto Funes Jr., MD on January 10, 2017 at 5:36 Board Certified Radiologist. This report was verified electronically.
[2017-01-10 05:59] LABS: AUTOMATED NEUTROPHIL # 10.1 TH/MM3 (1.8-7.7); BASOPHIL % 0.3 % (0.0-2.0); HEMATOCRIT 32.6 % (35.0-46.0); LYMPH % 4.5 % (9.0-44.0); LYMPHOCYTE # 0.5 TH/MM3 (1.0-4.8); MEAN CELL VOLUME 109.2 FL (80.0-100.0); MEAN CORPUSCULAR HEMOGLOBIN 36.5 PG (27.0-34.0); MEAN CORPUSCULAR HGB CONC 33.4 % (32.0-36.0); MONO % 5.6 % (0.0-8.0); NEUT % 89.6 % (16.0-70.0); PLATELET COUNT 180 TH/MM3 (150-450); RED BLOOD COUNT 2.98 MIL/MM3 (4.00-5.30); RED CELL DISTRIBUTION WIDTH 14.8 % (11.6-17.2); WHITE BLOOD COUNT 11.3 TH/MM3 (4.0-11.0)
[2017-01-10 06:04] LABS: HEMO FLAGS AUTO DIFF
[2017-01-10 06:27] LABS: ALT (GPT) 27 U/L (10-53); ANION GAP 7 MEQ/L (5-15); AST (GOT) 40 U/L (15-37); BICARBONATE 22.1 MEQ/L (21.0-32.0); BLOOD UREA NITROGEN 15 MG/DL (7-18); CHLORIDE 110 MEQ/L (98-107); GLOMERULAR FILTRATION RATE 184 ML/MIN (>89); MAGNESIUM 1.5 MG/DL (1.5-2.5); POTASSIUM 3.7 MEQ/L (3.5-5.1); SODIUM (NA) 139 MEQ/L (136-145)
[2017-01-10 06:28] LABS: ALKALINE PHOSPHATASE 41 U/L (45-117); TOTAL BILIRUBIN ADULT 0.3 MG/DL (0.2-1.0)
[2017-01-10] MEDS: INSULIN NovoLIN REGULAR SUPPLEMENTAL SCALE SQ SCH ×4 (07:00→20:19)
[2017-01-10] MEDS: SODIUM CHLORIDE 0.9% FLUSH 10 ML FLUSH IVF SCH (07:07)
[2017-01-10] MEDS: SODIUM CHLORIDE 0.9% FLUSH 5 ML FLUSH IV FLUSH SCH ×2 (07:07→19:58)
[2017-01-10] MEDS ORDERED: BUMETANIDE INJ 1 MG/4 ML VIAL IV PUSH ONE (08:30)
[2017-01-10] MEDS ORDERED: ALBUMIN HUMAN 25% 25 GM/100 ML BAGP IV ONE (08:30)
--- NOTE | 2017-01-10 08:31 | HHI.CCPN ---
Subjective Remarks/Hospital Course 71-year-old female. Date of admission 01/07/2017. Past medical history includes COPD not on supplemental oxygen at home, 60 years tobaccoism, history of left upper lobe lobectomy secondary to cancer [facility] and hypertension. She presents to the [facility] with acute onset at 9 PM last night of abdominal pain. 10 out of 10. Sharp and stabbing without relief.I associated with nausea and vomiting. She states he's had abdominal pain "off and on" for the past month without relief. She states that she had an appointment with her primary on January 19 but could not wait until then. She was given Solu-Medrol 125 mg IV 1 and a DuoNeb treatment and placed on [address] scan abdomen pelvis reveals free peritoneal air without, free fluid within the abdomen, moderate hiatal hernia and sigmoid diverticulosis. Blood cultures 2 and Zosyn was ordered. Dr. ho was contacted and requested admission to the razor grinder with a consultation to him. He will see here at [facility]. She states she had surgery multiple years ago to remove benign tumors from her abdomen at [facility] in [place] and agrees to admit Currently, patient requesting morphine for pain management. Hemodynamic stable. On 3 L nasal cannula 01/08: Currently afebrile. Pain currently 4-10 management with IV morphine when necessary. Sharp stabbing such clotting. Note is 64% bandemia this a.m. Still considering surgery. Hemodynamically stable. 01/09: Episode of tachycardia overnight resolved. Very anxious at times when she states she can't breathe, possibly relating to DuoNeb therapy?. Adjusting medications see below. Pain currently 2 out of 10. Blood pressure low normal overnight. Decreased urine output noted. Subjective 01/10: Afebrile. Pain is well controlled. Currently on 4 L nasal cannula. Tolerating diet. Positive BM 1. Objective Vital Signs Date Time Temp Pulse Resp B/P Pulse Ox O2 Delivery O2 Flow Rate FiO2 01/10/17 07:10 95 Nasal Cannula 4.00 01/10/17 06:00 84 01/10/17 04:00 98.3 18 102/57 01/09/17 20:00 91 Intake and Output 01/09/17 01/09/17 01/10/17 08:00 16:00 00:00 Intake Total 994 ml 1722 ml 1205 ml Output Total 175 ml 300 ml 300 ml Balance 819 ml 1422 ml 905 ml Result Diagram: 01/10/1746 01/10/1746 Other Results Microbiology Date/Time Procedure Status Source Growth 01/09/17 08:29 Influenza Types A,B Antigen (SAMANTHA) - Final Complete Nasal Aspirate NEGATIVE FOR FLU A AND B ANTIGEN.... 01/07/17 08:05 Aerobic Blood Culture - Preliminary Resulted Blood Peripheral NO GROWTH IN 2 DAYS 01/07/17 08:05 Anaerobic Blood Culture - Preliminary Resulted Gram Negative Luis M Imaging Last Impressions Chest X-Ray 01/10/17599 Signed Impressions: Service Date/Time: Tuesday, January 10, 2017 04:15 - CONCLUSION: Unchanged bibasilar infiltrates and tiny effusions. Agusto Funes Jr., MD Abdomen X-Ray 01/09/17599 Signed Impressions: Service Date/Time: Monday, January 09, 2017 05:08 - CONCLUSION: Normal examination. Agusto Funes Jr., MD Abdomen/Pelvis CT 01/07/1753 Signed Impressions: Service Date/Time: Saturday, January 07, 2017 07:07 - CONCLUSION: 1. There is a small volume of free intraperitoneal air suggestive of perforated bowel. The site of perforation is not identified however. 2. There is also a small volume of free fluid in the abdomen and pelvis with associated peritoneal enhancement. Enhancement of the peritoneum is typically associated with infection, hemorrhage, or malignancy. 3. Nonacute findings include moderate size hiatal hernia, severe atherosclerotic disease, and sigmoid diverticulosis. These findings were discussed with Dr. Chiang via telephone. Joo Mc MD Objective Remarks GENERAL: 71-year-old female, quite cachectic currently resting in bed in no acute distress on nasal cannula SKIN: Warm and dry. No rash HEAD: Atraumatic. Normocephalic. EYES: Pupils equal and round about 2 mm bilaterally and reactive. No scleral icterus. No injection or drainage. ENT: No nasal bleeding or discharge. Mucous membranes pink and moist. NECK: Trachea midline. No JVD. Left IJ clean dry and intact. CARDIOVASCULAR: Regular rate and rhythm. S1, S2. No S4. Without murmur RESPIRATORY: Diminished breath sounds throughout. Positive inspiratory and end expiratory wheeze. Breath sounds equal bilaterally. GASTROINTESTINAL: Abdomen firm, tender palpation with voluntary guarding epigastric region. No rigidity. Hypoactive bowel sounds appreciated MUSCULOSKELETAL: Extremities without any significant peripheral edema. No obvious deformities. NEUROLOGICAL: Awake and alert. No obvious cranial nerve deficits. Motor grossly within normal limits. Five out of 5 muscle strength in the arms and legs. Normal speech. PSYCHIATRIC: Appropriate mood and affect; insight and judgment normal. Vascular Central Line Catheter: Yes Assessment to: Continue Date of Insertion: Jan 08, 2017 Line: Central Venous Catheter Side: Left Location: Internal, Jugular A/P Assessment and Plan Neuro/Psych: Abdominal pain NOS management Acetaminophen for fever [place]/morphine for pain management Melatonin 5 mg when necessary for insomnia CV: History of hypertension Atherosclerotic vascular disease Patient is on losartan 25 mg daily Norvasc 5 milligrams daily at home for hypertension. These have currently been held due to borderline blood pressures. Resume when clinically indicated EKG revealed normal sinus rhythm with normal MD/QRS and QT intervals Will provide as needed blood pressure medication if needed Currently on normal saline at 40 cc an hour. +12 L since admission. Will give 1 low-dose diuretic today Currently not requiring antihypertensives and/or vasopressors Lactate was 4.1 yesterday currently 1.0. Resp: COPD History of lung cancer status post left upper lobe lobectomy Nasal cannula to maintain saturations greater than or equal to 92%. Currently on 4 L Incentive spirometry while awake Bronchodilator therapy with anoro ellipta daily. Does not tolerate aerosols due to cough. Symbicort 2 puffs twice a day Anoro Ellipta inhalation daily at home. Ventolin HFA 2 puffs every 4 hours and as needed Solu-Medrol 40 IV every 8 Chest x-ray revealed stable emphysematous changes bilaterally with tiny right pleural effusion GI: Free intraperitoneal air Hiatal hernia Sigmoid diverticulosis History of removal of 2 benign abdominal masses Low albumin CT abdomen/pelvis revealed free intracranial air unknown source. Free fluid within the abdomen. Hiatal hernia and liver cyst and endoscopic vascular disease and sigmoid diverticulosis. Dr. ho/surgery consulted. Currently with conservative management On soft liquid diet Protonix 40 mg twice a day for GI prophylaxis LFTs within normal limits. Bilirubin within normal limits. : Jane catheter for accurate I's and O's in a critically ill patient Endo: Sliding-scale insulin if indicated to maintain euglycemia Renal: Monitor urine output closely. Accurate I's and O's BMP within normal limits. Follow BMP in a.m. Heme: Macrocytosis Normocytic anemia Leukocytosis Follow-up CBC in AM. B12,TSH within normal limits. Folate low at 2.3. Follow-up peripheral smear revealed macrocytosis ID: Likely peritonitis from ruptured gastric ulcer/diverticulit? Positive cocci/gram-negative luis m bacteremia Received 1 dose of Zosyn at [place]. . Previously treated with Cipro, Flagyl and Diflucan 3 days Infectious disease consulted. Currently on intermittent Zosyn day #2/Flagyl day #4 Pertinent cultures Blood cultures 2 - 01/07 -Gram-positive cocci/gram-negative luis m FEN: Hypophosphatemia Replace electrolytes as clinically indicated per ICU electrolyte protocol 15 mmol K-Phos IV 1. Recheck in a.m. MSK: PT/OT evaluate and treat Access -Left IJ TLC day #3 placed 01/08 Prophylaxis - GI - Protonix twice a day - DVT - SCD/heparin subcutaneous Critical Care: The total care time was 35 minutes. Time to perform other separately billable procedures was not included in the critical care time. Navi Lanza MD Jan 10, 2017 08:31 Navi Lanza MD Jan 10, 2017 08:31
[2017-01-10] MEDS: PANTOPRAZOLE SOD 40 MG DELAYED RELEASE TAB PO SCH ×2 (08:52→19:58)
[2017-01-10] MEDS: UMECLIDINIUM 62.5 MCG/VILANTEROL 25 MCG INHALER INH SCH (08:52)
[2017-01-10] MEDS: BUDESONIDE-FORMOTEROL 160/4.5 MCG INHALER INH SCH ×2 (08:52→19:58)
[2017-01-10] MEDS: HEPARIN SODIUM - SQ 10,000 UNITS/ML VIAL SQ SCH ×2 (08:52→19:59)
[2017-01-10] MEDS: FOLIC ACID 1 MG TAB PO SCH (08:52)
[2017-01-10] MEDS ORDERED: POTASSIUM PHOSPHATE INJ 15 MMOL in SODIUM CHLORIDE 0.9% INJ 150 ML IV ONE (09:00)
[2017-01-10] MEDS: methylPREDNISolone SOD SUCC 40 MG/1 ML VIAL IV PUSH SCH ×3 (09:00→21:56)
[2017-01-10] MEDS ORDERED: ALBUTEROL SULFATE 90 MCG/ACT HFA 8 GM INHALER INH PRN (09:00)
[2017-01-10 10:04] LABS: BANDS 11 % (0-6); NEUTROPHIL # MANUAL DIFF 10.3 TH/MM3 (1.8-7.7); PLATELET ESTIMATE SMEAR NORMAL (NORMAL); PLATELET MORPHOLOGY NORMAL (NORMAL); POLYS (SEG NEUTROPHILS) 80 % (16-70); SCAN/DIFF FINAL DIFF MANUAL; WBC DIFF SAMPLE 100
[2017-01-10] MEDS: ALBUTEROL SULFATE 90 MCG/ACT HFA 8 GM INHALER INH SCH ×4 (12:00→23:48)
--- NOTE | 2017-01-10 12:27 | HHI.PR ---
Subjective Subjective Notes feels ok, a little weak and tired. eating some food and candy, not much appetite, had a small BM Objective Vitals/I&O Vital Signs Date Time Temp Pulse Resp B/P Pulse Ox O2 Delivery O2 Flow Rate FiO2 01/10/17 12:00 98.3 98 24 112/58 94 01/10/17 07:10 Nasal Cannula 4.00 01/09/17 20:00 91 Labs Laboratory Tests Test 01/09/17 01/10/17 19:58 05:46 Lactic Acid Level 0.7 White Blood Count 11.3 Red Blood Count 2.98 Hemoglobin 10.9 Hematocrit 32.6 Mean Corpuscular Volume 109.2 Mean Corpuscular Hemoglobin 36.5 Mean Corpuscular Hemoglobin 33.4 Concent Red Cell Distribution Width 14.8 Platelet Count 180 Mean Platelet Volume 7.3 Neutrophils (%) (Auto) 89.6 Lymphocytes (%) (Auto) 4.5 Monocytes (%) (Auto) 5.6 Eosinophils (%) (Auto) 0.0 Basophils (%) (Auto) 0.3 Neutrophils # (Auto) 10.1 Lymphocytes # (Auto) 0.5 Monocytes # (Auto) 0.6 Eosinophils # (Auto) 0.0 Basophils # (Auto) 0.0 CBC Comment AUTO DIFF Differential Total Cells 100 Counted Neutrophils % (Manual) 80 Band Neutrophils % 11 Lymphocytes % 6 Monocytes % 3 Neutrophils # (Manual) 10.3 Differential Comment FINAL DIFF MANUAL Platelet Estimate NORMAL Platelet Morphology Comment NORMAL Sodium Level 139 Potassium Level 3.7 Chloride Level 110 Carbon Dioxide Level 22.1 Anion Gap 7 Blood Urea Nitrogen 15 Creatinine 0.35 Estimat Glomerular Filtration 184 Rate Random Glucose 91 Calcium Level 8.3 Phosphorus Level 2.0 Magnesium Level 1.5 Total Bilirubin 0.3 Aspartate Amino Transf 40 (AST/SGOT) Alanine Aminotransferase 27 (ALT/SGPT) Alkaline Phosphatase 41 Total Protein 4.7 Albumin 2.2 Date/Time Procedure Status Source Growth 01/09/17 08:29 Influenza Types A,B Antigen (SAMANTHA) - Final Complete Nasal Aspirate NEGATIVE FOR FLU A AND B ANTIGEN.... 01/07/17 08:05 Aerobic Blood Culture - Preliminary Resulted Blood Peripheral NO GROWTH IN 3 DAYS 01/07/17 08:05 Anaerobic Blood Culture - Preliminary Resulted Gram Negative Luis M Abdomen: Non-distended, Non-tender, BS normal A/P Assessment and Plan Abd pain, free air, free fluid - undetermined etiology, COPD overall doing well with nonoperative management. pain has resolved. starting to take some po. bowels working continue medical management for now. if clinical condition changes will reconsider surgery. Rip Elias MD Jan 10, 2017 12:27
[2017-01-11] VITALS (11 sets, daily range): BP systolic 112–132; BP diastolic 59–78; PULSE 80–112; RESP 18–24; TEMP 97.7–98.3; O2SAT 92–96
[2017-01-11] MEDS: CHLORHEXIDINE GLUCONATE 2 % 1 PACK (2 CLOTHS) TOP SCH ×2 (03:11→23:23)
[2017-01-11] MEDS: ALBUTEROL SULFATE 90 MCG/ACT HFA 8 GM INHALER INH SCH ×6 (03:11→23:30)
[2017-01-11] MEDS: MORPHINE SULFATE 4 MG/ML INJ IV PRN (03:27)
[2017-01-11] MEDS: metroNIDAZOLE 500 MG INJ 100 ML IV SCH ×4 (04:25→22:22)
[2017-01-11 05:04] LABS: BICARBONATE 24.8 MEQ/L (21.0-32.0); MAGNESIUM 1.5 MG/DL (1.5-2.5); POTASSIUM 3.5 MEQ/L (3.5-5.1)
[2017-01-11 05:13] LABS: AUTOMATED NEUTROPHIL # 9.2 TH/MM3 (1.8-7.7); BASOPHIL % 0.1 % (0.0-2.0); HEMATOCRIT 34.3 % (35.0-46.0); LYMPHOCYTE # 0.3 TH/MM3 (1.0-4.8); MEAN CELL VOLUME 107.3 FL (80.0-100.0); MEAN CORPUSCULAR HEMOGLOBIN 37.5 PG (27.0-34.0); MONO % 4.7 % (0.0-8.0); NEUT % 92.2 % (16.0-70.0); PLATELET COUNT 197 TH/MM3 (150-450); RED CELL DISTRIBUTION WIDTH 14.6 % (11.6-17.2); WHITE BLOOD COUNT 9.9 TH/MM3 (4.0-11.0)
[2017-01-11 05:21] LABS: HEMO FLAGS AUTO DIFF
[2017-01-11] MEDS: PIPERACIL-TAZO 3.375 GM PREMIX 50 ML IV SCH ×4 (05:26→23:30)
[2017-01-11] MEDS: methylPREDNISolone SOD SUCC 40 MG/1 ML VIAL IV PUSH SCH ×3 (05:26→21:31)
--- NOTE | 2017-01-11 06:10 | RADRPT ---
EXAM DATE/TIME: 01/11/2017 04:36 [facility] COMPARISON: CHEST SINGLE AP, January 10, 2017, 4:15. INDICATIONS : Shortness of breath, possible pulmonary disease. MEDICAL HISTORY : Hypertension. Carcinoma, lung. SURGICAL HISTORY : Lobectomy. ENCOUNTER: Subsequent ACUITY: 4 - 6 days PAIN SCORE: 0/10 LOCATION: Bilateral chest FINDINGS: Single portable frontal view the chest shows some worsening of the bibasilar pulmonary infiltrates. T iny effusion suspected. Heart is normal in size. Left-sided central line noted. CONCLUSION: Slight worsening of the bilateral pulmonary infiltrates. Agusto Funes Jr., MD on January 11, 2017 at 6:08 Board Certified Radiologist. This report was verified electronically.
[2017-01-11] MEDS: INSULIN NovoLIN REGULAR SUPPLEMENTAL SCALE SQ SCH ×4 (06:16→20:33)
[2017-01-11] MEDS: SODIUM CHLORIDE 0.9% FLUSH 5 ML FLUSH IV FLUSH SCH ×2 (07:27→21:00)
[2017-01-11] MEDS: SODIUM CHLORIDE 0.9% FLUSH 10 ML FLUSH IVF SCH (07:28)
--- NOTE | 2017-01-11 08:06 | HHI.CCPN ---
Subjective Remarks/Hospital Course 71-year-old female. Date of admission 01/07/2017. Past medical history includes COPD not on supplemental oxygen at home, 60 years tobaccoism, history of left upper lobe lobectomy secondary to cancer [facility] and hypertension. She presents to the [place] ED with acute onset at 9 PM last night of abdominal pain. 10 out of 10. Sharp and stabbing without relief.I associated with nausea and vomiting. She states he's had abdominal pain "off and on" for the past month without relief. She states that she had an appointment with her primary on January 19 but could not wait until then. She was given Solu-Medrol 125 mg IV 1 and a DuoNeb treatment and placed on [address] scan abdomen pelvis reveals free peritoneal air without, free fluid within the abdomen, moderate hiatal hernia and sigmoid diverticulosis. Blood cultures 2 and Zosyn was ordered. Dr. ho was contacted and requested admission to the admin secretary with a consultation to him. He will see here at [facility]. She states she had surgery multiple years ago to remove benign tumors from her abdomen at [facility] in [place] and agrees to admit Currently, patient requesting morphine for pain management. Hemodynamic stable. On 3 L nasal cannula 01/08: Currently afebrile. Pain currently 4-10 management with IV morphine when necessary. Sharp stabbing such clotting. Note is 64% bandemia this a.m. Still considering surgery. Hemodynamically stable. 01/09: Episode of tachycardia overnight resolved. Very anxious at times when she states she can't breathe, possibly relating to DuoNeb therapy?. Adjusting medications see below. Pain currently 2 out of 10. Blood pressure low normal overnight. Decreased urine output noted. 01/10: Afebrile. Pain is well controlled. Currently on 4 L nasal cannula. Tolerating diet. Positive BM 1. Subjective 01/11: Afebrile. Pain is well controlled. Remains on 4 L nasal cannula. Tolerating diet. BM 1. Essentially stable past 48 hours Objective Vital Signs Date Time Temp Pulse Resp B/P Pulse Ox O2 Delivery O2 Flow Rate FiO2 01/11/17 07:14 94 Nasal Cannula 4.00 01/11/17 06:00 91 01/11/17 04:00 98.0 23 117/62 01/09/17 20:00 91 Intake and Output 01/10/17 01/10/17 01/10/17 07:59 15:59 23:59 Intake Total 1536 ml 657 ml 396 ml Output Total 200 ml 1400 ml 450 ml Balance 1336 ml -743 ml -54 ml Result Diagram: 01/11/17 04301/11/17429 Other Results Microbiology Date/Time Procedure Status Source Growth 01/09/17 08:29 Influenza Types A,B Antigen (SAMANTHA) - Final Complete Nasal Aspirate NEGATIVE FOR FLU A AND B ANTIGEN.... 01/07/17 08:05 Aerobic Blood Culture - Preliminary Resulted Blood Peripheral NO GROWTH IN 3 DAYS 01/07/17 08:05 Anaerobic Blood Culture - Final Resulted Prevotella Species Bacteroides Uniformis Imaging Last Impressions Chest X-Ray 01/11/17599 Signed Impressions: Service Date/Time: Wednesday, January 11, 2017 04:36 - CONCLUSION: Slight worsening of the bilateral pulmonary infiltrates. Agusto Funes Jr., MD Abdomen X-Ray 01/09/17599 Signed Impressions: Service Date/Time: Monday, January 09, 2017 05:08 - CONCLUSION: Normal examination. Agusto Funes Jr., MD Abdomen/Pelvis CT 01/07/17 0553 Signed Impressions: Service Date/Time: Saturday, January 07, 2017 07:07 - CONCLUSION: 1. There is a small volume of free intraperitoneal air suggestive of perforated bowel. The site of perforation is not identified however. 2. There is also a small volume of free fluid in the abdomen and pelvis with associated peritoneal enhancement. Enhancement of the peritoneum is typically associated with infection, hemorrhage, or malignancy. 3. Nonacute findings include moderate size hiatal hernia, severe atherosclerotic disease, and sigmoid diverticulosis. These findings were discussed with Dr. Chiang via telephone. Joo Mc MD Objective Remarks GENERAL: 71-year-old female, quite cachectic currently resting in bed in no acute distress on nasal cannula SKIN: Warm and dry. No rash HEAD: Atraumatic. Normocephalic. EYES: Pupils equal and round about 2 mm bilaterally and reactive. No scleral icterus. No injection or drainage. ENT: No nasal bleeding or discharge. Mucous membranes pink and moist. NECK: Trachea midline. No JVD. Left IJ clean dry and intact. CARDIOVASCULAR: Regular rate and rhythm. S1, S2. No S4. Without murmur RESPIRATORY: Diminished breath sounds throughout. Positive inspiratory and end expiratory wheeze. Breath sounds equal bilaterally. GASTROINTESTINAL: Abdomen firm, tender palpation with voluntary guarding epigastric region. No rigidity. Hypoactive bowel sounds appreciated MUSCULOSKELETAL: Extremities without any significant peripheral edema. No obvious deformities. NEUROLOGICAL: Awake and alert. No obvious cranial nerve deficits. Motor grossly within normal limits. Five out of 5 muscle strength in the arms and legs. Normal speech. PSYCHIATRIC: Appropriate mood and affect; insight and judgment normal. Date of Insertion: Jan 08, 2017 Line: Central Venous Catheter Side: Left Location: Internal, Jugular A/P Assessment and Plan Neuro/Psych: Abdominal pain NOS management Acetaminophen for fever [place]/morphine for pain management Melatonin 5 mg when necessary for insomnia CV: History of hypertension Atherosclerotic vascular disease Patient is on losartan 25 mg daily Norvasc 5 milligrams daily at home for hypertension. These have currently been held due to borderline blood pressures. Resume when clinically indicated EKG revealed normal sinus rhythm with normal NV/QRS and QT intervals Will provide as needed blood pressure medication if needed Currently on normal saline at 40 cc an hour. Discontinue today +12 L since admission. Respiratory 600 cc yesterday Currently not requiring antihypertensives and/or vasopressors Lactate has cleared Resp: COPD History of lung cancer status post left upper lobe lobectomy Nasal cannula to maintain saturations greater than or equal to 92%. Currently on 4 L Incentive spirometry while awake Bronchodilator therapy with anoro ellipta daily. Does not tolerate aerosols due to cough. Symbicort 2 puffs twice a day Anoro Ellipta inhalation daily at home. Ventolin HFA 2 puffs every 4 hours and as needed Solu-Medrol 40 IV every 8 Chest x-ray slightly worsening stable emphysematous changes bilaterally with left less than right pleural effusion GI: Free intraperitoneal air Hiatal hernia Sigmoid diverticulosis History of removal of 2 benign abdominal masses Low albumin CT abdomen/pelvis revealed free intracranial air unknown source. Free fluid within the abdomen. Hiatal hernia and liver cyst and endoscopic vascular disease and sigmoid diverticulosis. Dr. ho/surgery consulted. Currently with conservative management On regular diet Protonix 40 mg twice a day for GI prophylaxis LFTs within normal limits. Bilirubin within normal limits. : Jane catheter for accurate I's and O's in a critically ill patient Endo: Sliding-scale insulin if indicated to maintain euglycemia Renal: Monitor urine output closely. Accurate I's and O's BMP within normal limits. Follow BMP in a.m. Heme: Macrocytosis Follow-up CBC in AM. B12,TSH within normal limits. Folate low at 2.3. On folate 1 mg by mouth daily Follow-up peripheral smear revealed macrocytosis ID: Likely peritonitis from ruptured gastric ulcer/diverticulit? Prevotella, Bacterioides & Gram-positive cocci bacteremia Received 1 dose of Zosyn at [place]. . Previously treated with Cipro, Flagyl and Diflucan 3 days Infectious disease consulted. Currently on intermittent Zosyn day #3/Flagyl day #5 Pertinent cultures Blood cultures 2 - 01/07 -Gram-positive cocci, Prevotella species and Bacterioides Uniformis FEN: Hypo-magnesium Replace electrolytes as clinically indicated per ICU electrolyte protocol 30 mEq K-Cl and 2 g mag sulfate IV 1. Recheck in a.m. MSK: PT/OT evaluate and treat Access -Left IJ TLC day #4 placed 01/08 Prophylaxis - GI - Protonix twice a day - DVT - SCD/heparin subcutaneous Critical Care: The total care time was 35 minutes. Time to perform other separately billable procedures was not included in the critical care time. Patient is stable from a critical care medicine standpoint. We will assign care to the hospitalist in a.m. 01/12. Okay to transfer to floor Navi Lanza MD Jan 11, 2017 08:06
[2017-01-11] MEDS ORDERED: POTASSIUM CHLORIDE INJ 30 MEQ in SODIUM CHLORIDE 0.9% INJ 100 ML IV-CENTRAL ONE (09:00)
[2017-01-11] MEDS: UMECLIDINIUM 62.5 MCG/VILANTEROL 25 MCG INHALER INH SCH (09:00)
[2017-01-11] MEDS: BUDESONIDE-FORMOTEROL 160/4.5 MCG INHALER INH SCH ×2 (09:00→21:00)
[2017-01-11] MEDS: MAGNESIUM SULFATE 1 GM PREMIX 100 ML IV SCH ×2 (09:04→09:08)
[2017-01-11] MEDS: HEPARIN SODIUM - SQ 10,000 UNITS/ML VIAL SQ SCH ×2 (09:05→21:32)
[2017-01-11] MEDS: PANTOPRAZOLE SOD 40 MG DELAYED RELEASE TAB PO SCH ×2 (09:05→21:31)
[2017-01-11] MEDS: FOLIC ACID 1 MG TAB PO SCH (09:05)
[2017-01-11 11:10] LABS: SCAN/DIFF AUTO DIFF CONFIRMED
[2017-01-11] MEDS: ACETAMINOPHEN/HYDROcodone 325 MG/5 MG TAB PO PRN (13:04)
--- NOTE | 2017-01-11 17:06 | PD.CONS ---
HPI Service [place] [facility] Consult Requested By Primary Care Physician Jonathan Headley III, MD Diagnoses: (1) Sigmoid diverticulosis (2) Hiatal hernia (3) Macrocytosis without anemia (4) Acute respiratory insufficiency (5) Free intraperitoneal air (6) COPD exacerbation (7) History of lobectomy of lung (8) History of lung cancer (9) Tobacco abuse Past Family Social History Reported Medications Microbiology Date/Time Procedure Status Source Growth 01/09/17 08:29 Influenza Types A,B Antigen (SAMANTHA) - Final Complete Nasal Aspirate NEGATIVE FOR FLU A AND B ANTIGEN.... Allergies: Coded Allergies: Azithromycin (Verified Allergy, Severe, Anaphylaxis, 01/07/17) Active Ordered Medications Microbiology Date/Time Procedure Status Source Growth 01/09/17 08:29 Influenza Types A,B Antigen (SAMANTHA) - Final Complete Nasal Aspirate NEGATIVE FOR FLU A AND B ANTIGEN.... 01/07/17 08:05 Aerobic Blood Culture - Preliminary Resulted Blood Peripheral NO GROWTH IN 4 DAYS 01/07/17 08:05 Anaerobic Blood Culture - Final Resulted Prevotella Species Bacteroides Uniformis Physical Exam Vital Signs Vital Signs Date Time Temp Pulse Resp B/P Pulse Ox O2 Delivery O2 Flow Rate FiO2 01/11/17 10:00 112 01/11/17 08:00 102 01/11/17 08:00 98.3 102 24 116/65 93 01/11/17 07:14 94 Nasal Cannula 4.00 01/11/17 07:00 95 Nasal Cannula 4.00 01/11/17 06:00 91 01/11/17 04:00 98.0 92 23 117/62 96 01/11/17 04:00 92 01/11/17 03:32 20 01/11/17 02:00 87 01/11/17 00:00 94 01/11/17 00:00 98.2 94 22 112/66 94 01/10/17 22:00 92 01/10/17 20:00 98.0 94 25 116/63 96 01/10/17 20:00 94 01/10/17 19:36 96 Nasal Cannula 4.00 01/10/17 19:00 96 Nasal Cannula 4.00 01/10/17 18:00 100 Physical Exam GENERAL: This is a well-nourished, well-developed patient, in no apparent distress. SKIN: No rashes, ecchymoses or lesions. Cool and dry. HEAD: Atraumatic. Normocephalic. No temporal or scalp tenderness. EYES: Pupils equal round and reactive. Extraocular motions intact. No scleral icterus. No injection or drainage. ENT: Nose without bleeding, purulent drainage or septal hematoma. Throat without erythema, tonsillar hypertrophy or exudate. Uvula midline. Airway patent. NECK: Trachea midline. No JVD or lymphadenopathy. Supple, nontender, no meningeal signs. CARDIOVASCULAR: Regular rate and rhythm without murmurs, gallops, or rubs. RESPIRATORY: Clear to auscultation. Breath sounds equal bilaterally. No wheezes , rales, or rhonchi. GASTROINTESTINAL: Abdomen soft, non-tender, nondistended. No hepato-splenomegaly , or palpable masses. No guarding. MUSCULOSKELETAL: Extremities without clubbing, cyanosis, or edema. No joint tenderness, effusion, or edema noted. No calf tenderness. Negative Homans sign bilaterally. NEUROLOGICAL: Awake and alert. Cranial nerves II through XII intact. Motor and sensory grossly within normal limits. Five out of 5 muscle strength in all muscle groups. Normal speech. Laboratory Laboratory Tests Test 01/11/17 04:30 White Blood Count 9.9 Red Blood Count 3.20 Hemoglobin 12.0 Hematocrit 34.3 Mean Corpuscular Volume 107.3 Mean Corpuscular Hemoglobin 37.5 Mean Corpuscular Hemoglobin 35.0 Concent Red Cell Distribution Width 14.6 Platelet Count 197 Mean Platelet Volume 7.4 Neutrophils (%) (Auto) 92.2 Lymphocytes (%) (Auto) 3.0 Monocytes (%) (Auto) 4.7 Eosinophils (%) (Auto) 0.0 Basophils (%) (Auto) 0.1 Neutrophils # (Auto) 9.2 Lymphocytes # (Auto) 0.3 Monocytes # (Auto) 0.5 Eosinophils # (Auto) 0.0 Basophils # (Auto) 0.0 CBC Comment AUTO DIFF Differential Comment AUTO DIFF CONFIRMED Sodium Level 141 Potassium Level 3.5 Chloride Level 107 Carbon Dioxide Level 24.8 Anion Gap 9 Blood Urea Nitrogen 13 Creatinine 0.39 Estimat Glomerular Filtration 162 Rate Random Glucose 110 Calcium Level 8.7 Phosphorus Level 2.5 Magnesium Level 1.5 Date/Time Procedure Status Source Growth 01/09/17 08:29 Influenza Types A,B Antigen (SAMANTHA) - Final Complete Nasal Aspirate NEGATIVE FOR FLU A AND B ANTIGEN.... 01/07/17 08:05 Aerobic Blood Culture - Preliminary Resulted Blood Peripheral NO GROWTH IN 4 DAYS 01/07/17 08:05 Anaerobic Blood Culture - Final Resulted Prevotella Species Bacteroides Uniformis Result Diagram: 01/11/1742901/11/17429 A/P Assessment and Plan DICTATED, [id number] Noted positive blood cultures, pt. on Zosyn IV Kassandra Echols Jan 11, 2017 17:06
--- NOTE | 2017-01-11 23:43 | HHI.PR ---
Subjective Subjective Notes feels better, no NV, minimal pain Objective Vitals/I&O Vital Signs Date Time Temp Pulse Resp B/P Pulse Ox O2 Delivery O2 Flow Rate FiO2 01/11/17 20:00 87 01/11/17 20:00 97.7 20 121/78 92 01/11/17 19:22 Nasal Cannula 4.00 01/09/17 20:00 91 Labs Laboratory Tests Test 01/11/17 04:30 White Blood Count 9.9 Red Blood Count 3.20 Hemoglobin 12.0 Hematocrit 34.3 Mean Corpuscular Volume 107.3 Mean Corpuscular Hemoglobin 37.5 Mean Corpuscular Hemoglobin 35.0 Concent Red Cell Distribution Width 14.6 Platelet Count 197 Mean Platelet Volume 7.4 Neutrophils (%) (Auto) 92.2 Lymphocytes (%) (Auto) 3.0 Monocytes (%) (Auto) 4.7 Eosinophils (%) (Auto) 0.0 Basophils (%) (Auto) 0.1 Neutrophils # (Auto) 9.2 Lymphocytes # (Auto) 0.3 Monocytes # (Auto) 0.5 Eosinophils # (Auto) 0.0 Basophils # (Auto) 0.0 CBC Comment AUTO DIFF Differential Comment AUTO DIFF CONFIRMED Sodium Level 141 Potassium Level 3.5 Chloride Level 107 Carbon Dioxide Level 24.8 Anion Gap 9 Blood Urea Nitrogen 13 Creatinine 0.39 Estimat Glomerular Filtration 162 Rate Random Glucose 110 Calcium Level 8.7 Phosphorus Level 2.5 Magnesium Level 1.5 Date/Time Procedure Status Source Growth 01/09/17 08:29 Influenza Types A,B Antigen (SAMANTHA) - Final Complete Nasal Aspirate NEGATIVE FOR FLU A AND B ANTIGEN.... 01/07/17 08:05 Aerobic Blood Culture - Preliminary Resulted Blood Peripheral NO GROWTH IN 4 DAYS 01/07/17 08:05 Anaerobic Blood Culture - Final Resulted Prevotella Species Bacteroides Uniformis Abdomen: Non-distended, Non-tender A/P Assessment and Plan 71yo female with Abd pain, free air, free fluid - undetermined etiology, COPD, stable. stable with non-surgical abdominal exam, continue medical therapy, will follow Chencho Patel MD Jan 11, 2017 23:43
[2017-01-12] VITALS (8 sets, daily range): BP systolic 113–135; BP diastolic 62–86; PULSE 74–95; RESP 16–20; TEMP 97.6–98.3; O2SAT 90–96
[2017-01-12] MEDS: ALBUTEROL SULFATE 90 MCG/ACT HFA 8 GM INHALER INH SCH ×5 (04:00→21:09)
[2017-01-12] MEDS: methylPREDNISolone SOD SUCC 40 MG/1 ML VIAL IV PUSH SCH (04:45)
[2017-01-12] MEDS: metroNIDAZOLE 500 MG INJ 100 ML IV SCH ×3 (04:45→17:14)
[2017-01-12] MEDS: MORPHINE SULFATE 4 MG/ML INJ IV PRN ×3 (05:00→21:12)
[2017-01-12] MEDS: INSULIN NovoLIN REGULAR SUPPLEMENTAL SCALE SQ SCH ×4 (05:39→21:00)
[2017-01-12 05:44] LABS: ALKALINE PHOSPHATASE 49 U/L (45-117); ALT (GPT) 27 U/L (10-53); ANION GAP 9 MEQ/L (5-15); AST (GOT) 21 U/L (15-37); BICARBONATE 28.1 MEQ/L (21.0-32.0); BLOOD UREA NITROGEN 19 MG/DL (7-18); CHLORIDE 105 MEQ/L (98-107); GLOMERULAR FILTRATION RATE 145 ML/MIN (>89); MAGNESIUM 1.9 MG/DL (1.5-2.5); POTASSIUM 3.5 MEQ/L (3.5-5.1); SODIUM (NA) 142 MEQ/L (136-145); TOTAL BILIRUBIN ADULT 0.4 MG/DL (0.2-1.0)
[2017-01-12 05:50] LABS: AUTOMATED NEUTROPHIL # 8.7 TH/MM3 (1.8-7.7); BASOPHIL % 0.1 % (0.0-2.0); HEMATOCRIT 36.8 % (35.0-46.0); LYMPH % 4.5 % (9.0-44.0); LYMPHOCYTE # 0.5 TH/MM3 (1.0-4.8); MEAN CELL VOLUME 106.9 FL (80.0-100.0); MEAN CORPUSCULAR HEMOGLOBIN 37.2 PG (27.0-34.0); MEAN CORPUSCULAR HGB CONC 34.8 % (32.0-36.0); MONO % 7.7 % (0.0-8.0); NEUT % 87.7 % (16.0-70.0); PLATELET COUNT 220 TH/MM3 (150-450); RED BLOOD COUNT 3.45 MIL/MM3 (4.00-5.30); RED CELL DISTRIBUTION WIDTH 15.1 % (11.6-17.2); WHITE BLOOD COUNT 9.9 TH/MM3 (4.0-11.0)
[2017-01-12 05:59] LABS: HEMO FLAGS AUTO DIFF
[2017-01-12] MEDS: PIPERACIL-TAZO 3.375 GM PREMIX 50 ML IV SCH ×3 (06:02→18:38)
--- NOTE | 2017-01-12 06:36 | RADRPT ---
EXAM DATE/TIME: 01/12/2017 05:57 [facility] COMPARISON: CHEST SINGLE AP, January 11, 2017, 4:36. INDICATIONS : Short of breath, coughing MEDICAL HISTORY : Carcinoma, lung. Chronic obstructive pulmonary disease. SURGICAL HISTORY : left upper lobectomy ENCOUNTER: Subsequent ACUITY: 1 week PAIN SCORE: 5/10 LOCATION: Bilateral chest FINDINGS: A single view of the chest demonstrates bibasilar pulmonary infiltrates greater in the right lower lo be. Small left pleural effusion. The cardiomediastinal contours are unremarkable. Osseous structure s are intact. CONCLUSION: Stable bibasilar pulmonary infiltrates. Small left pleural effusion. Sebas Kirk MD on January 12, 2017 at 6:34 Board Certified Radiologist. This report was verified electronically.
[2017-01-12 07:19] LABS: BANDS 1 % (0-6); METAMYELOCYTES 1 % (0-1); MYELOCYTES 5 % (0-0); NEUTROPHIL # MANUAL DIFF 8.9 TH/MM3 (1.8-7.7); PLATELET ESTIMATE SMEAR NORMAL (NORMAL); PLATELET MORPHOLOGY NORMAL (NORMAL); POLYS (SEG NEUTROPHILS) 83 % (16-70); WBC DIFF SAMPLE 100
[2017-01-12 07:20] LABS: SCAN/DIFF FINAL DIFF MANUAL
--- NOTE | 2017-01-12 08:25 | MB ---
cc: ADELE GARCIA MD DATE OF CONSULTATION: 01/11/2017. REASON FOR CONSULTATION: Medical management. TRAVEL IN THE LAST THIRTY DAYS: None. 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 The patient initially went to the [place] [facility] approximately at 09:00 p.m. on the with acute onset of abdominal pain. According to the record, she graded this pain as a 10/10 and described it as a sharp stabbing pain. She did have nausea and vomiting and was treated in the emergency room with IV steroids DuoNeb treatments and was placed on O2. The patient received a CT which did show free air and free fluid within the abdomen and sigmoid diverticulosis. The patient was sent to [place] for continuum of care, received a surgical consult for their expert opinion and the following of the patient with her acute abdomen. Infectious disease was also consulted for expert opinion on IV antibiotic management. The patient initially was placed on a clear liquid diet and had labs that were monitored and treated for any abnormals and is currently now resting in the medical/surgical area alert, oriented and cooperative. Currently the patient has not required any surgical intervention. She is being monitored for her needs. The patient has begun to have some shortness of breath and is requiring continuous O2. She has had some changes in her chest x-ray which shows a possible pneumonia with her emphysema and we have been consulted to assist in any medical management she needs. PAST MEDICAL HISTORY: 1. Hypertension. 2. COPD with emphysema. 3. Gastroesophageal reflux disease (GERD). 4. Diagnosis now of sigmoid diverticulosis. 5. Long-term tobacco use. 6. Acute respiratory insufficiency. 7. History of lung cancer. 8. Macrocytosis without anemia. PAST SURGICAL HISTORY: 1. Lobectomy of her left lung upper lobe. 2. Removal of abdominal masses x2. ALLERGIES: 1. AZITHROMYCIN. MEDICATIONS: Reconciled. 1. Amlodipine. 2. . 3. Ellipta inhaler. 4. Losartan. SOCIAL HISTORY: The patient does admit to some almost daily alcohol use usually about half a bottle of wine per day. 60+ years of tobacco use for approximately a pack a day. No intravenous drug use. The patient has recently been multiple family support. FAMILY HISTORY: N/A. REVIEW OF SYSTEMS: A ten point review was done and positives and negatives are mentioned in the history of present illness. Currently the patient is positive for some shortness of breath, 02 on. Decreased appetite. Mild nausea. No emesis. She is alert and oriented. A fairly good historian. Some mild constipation which has been treated and likely resolved now. Other systems negative for unremarkable. PHYSICAL EXAMINATION: VITAL SIGNS: Temperature is 93, pulse labile between 91 and 112, respiratory rate 23-24, blood pressure 116/65, O2 sat 93 on 4 liters nasal cannula. GENERAL: Thin, borderline frail white female looks older than her stated age resting in the bed, pleasant, alert and oriented, mildly tearful. SKIN: Her skin is pink. Mucous membranes are dena thick. Skin complexion warm and dry. HEAD, EYES, EARS, NOSE, THROAT: Normocephalic and atraumatic. Pupils equal, round and reactive to light and accommodation. Tongue is midline. No exudate. NECK: The neck is thin and supple. HEART: Heart sounds S1 and S2. No murmurs, rubs or gallops appreciated. No edema. Pulses are intact bilateral. PULMONARY: Using accessory muscles for respirations at rest. She has decreased breath sounds throughout her mid and lower lobes. Her anterior lobes are essentially clear. Mild expiratory wheeze is noted. ABDOMEN: Flat, taut, nontender to light palpation. Active bowel sounds in all four quads. MUSCULOSKELETAL: She moves her extremities with purpose. NEUROLOGIC: She is alert and oriented and a good historian. 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 Speech is clear. PSYCHIATRIC: Pleasant but mildly anxious mood and affect. Judgment is normal. DIAGNOSTIC DATA: The patient initially showed some leukocytosis yesterday on the with 11.3, now normal at 9.9, RBC 3.2, hemoglobin 12, hematocrit 34.3, platelet count 197,000, neutrophil auto count 92.2, lymphocytes 3. PT/INR 1.3 on 01/08. Chemistry: Sodium 141, potassium 3.5, chloride 107, carbon dioxide 24.8, anion gap 9, BUN 13, creatinine 0.39, GFR 162, random glucose 110, calcium 8.7, phosphorus 2.5, magnesium 1.5. Urine was normal on the . MRSA screen was negative. Chest x-ray on 01/11/2017 shows slight worsening of her bilateral pulmonary infiltrates. ASSESSMENT: 1. Abdominal pain with some sigmoid diverticulosis, hiatal hernia and free intraperitoneal air. 2. Possible bowel rupture. 3. Bilateral pulmonary infiltrates, probable pneumonia. 4. Hypertension. 5. Gastroesophageal reflux disease (GERD). 6. COPD exacerbation. 7. History of lung cancer. 8. Long-term tobacco use. PLAN: 1. Follow labs as warranted and treat any abnormals. 2. Will monitor her vital signs q. 4 and / or PRN. 3. Currently the patient is afebrile. 4. She does note some tachycardia with increased respiratory effort or activity. Currently her trends have been between 92 and 112. 5. Monitor her respiratory rate. 6. Encourage incentive spirometry every hour and as often as she feels like she can participate. 7. Turn, cough, deep breathe. 8. DuoNebs, although the patient says they make her cough so hard right now that it hurts her abdomen so she is hoping not to have to use those any more than possible. 9. 02 therapy. 10. Will monitor her medications. 11. Physical therapy has been consulted to evaluate and treat. 12. Activity should be out of bed up in chair with limited amounts of ambulation for now. 13. The patient will be using her albuterol inhalers, IV steroids, Protonix for PUD prophylaxis. 14. She is on IV Zosyn. 15. Medications for pain management p.o. or IV needed. 16. Heparin for DVT prophylaxis. We will follow her needs. Thank you very much for the consult Dictated by KRUNAL Solorio Adele Garcia MD JP/JUANCHO /4:52 PM /8:24 AM Patient seen and examined on the day of admission as above. Above-note was not available before to sign Chart was reviewed on day of admission including but not limited to labs radiological data and medications Discussed with RN and KRUNAL about plan of care Discussed with patient MTDD
[2017-01-12] MEDS: DOCUSATE SODIUM 50 MG/SENNA 8.6 MG TAB PO SCH (09:00)
[2017-01-12] MEDS: SODIUM CHLORIDE 0.9% FLUSH 10 ML FLUSH IVF SCH (09:00)
[2017-01-12] MEDS: UMECLIDINIUM 62.5 MCG/VILANTEROL 25 MCG INHALER INH SCH (09:00)
[2017-01-12] MEDS: BUDESONIDE-FORMOTEROL 160/4.5 MCG INHALER INH SCH ×2 (09:00→21:00)
[2017-01-12] MEDS: FOLIC ACID 1 MG TAB PO SCH (09:14)
[2017-01-12] MEDS: PANTOPRAZOLE SOD 40 MG DELAYED RELEASE TAB PO SCH ×2 (09:15→21:09)
[2017-01-12] MEDS: HEPARIN SODIUM - SQ 10,000 UNITS/ML VIAL SQ SCH ×2 (09:22→21:10)
[2017-01-12] MEDS: SODIUM CHLORIDE 0.9% FLUSH 5 ML FLUSH IV FLUSH SCH ×2 (09:22→21:00)
--- NOTE | 2017-01-12 10:48 | HHI.PR ---
Subjective Subjective Remarks minimal abd. pain, LUQ, ok after meds mild nausea, vomited last night tolerated liquids ok today no fever no cp chronic sob left arm swelling better, pt. concerned it may be a "blood clot". IV site dc'd per nursing had loose stool yesterday, small amount. wants to get up and walk Review of Systems Constitutional Constitutional Remarks 12 point ROS completed, negative except as noted above Vitals/Results Intake & Output 01/11/17 01/11/17 01/12/17 15:00 23:00 07:00 Intake Total 240 ml 520 ml 358 ml Output Total 350 ml 300 ml 250 ml Balance -110 ml 220 ml 108 ml Intake Oral 240 ml 240 ml 120 ml IV Total 280 ml 238 ml Output Urine Total 350 ml 300 ml 250 ml # Bowel Movements 0 0 Vital Signs Vital Signs Date Time Temp Pulse Resp B/P Pulse Ox O2 Delivery O2 Flow Rate FiO2 01/12/17 08:35 97.7 81 18 126/86 94 01/12/17 04:00 97.6 89 16 114/66 94 01/12/17 00:00 98.0 85 18 113/62 90 01/11/17 21:30 Nasal Cannula 4.00 01/11/17 20:00 87 01/11/17 20:00 97.7 80 20 121/78 92 01/11/17 19:22 92 Nasal Cannula 4.00 01/11/17 16:00 98.2 94 18 132/72 92 01/11/17 12:00 97.9 99 23 123/59 94 CBC/BMP: 01/12/17 0515 01/12/17 0515 Lab Results Laboratory Tests Test 01/12/17 05:15 White Blood Count 9.9 TH/MM3 Red Blood Count 3.45 MIL/MM3 Hemoglobin 12.8 GM/DL Hematocrit 36.8 % Mean Corpuscular Volume 106.9 FL Mean Corpuscular Hemoglobin 37.2 PG Mean Corpuscular Hemoglobin 34.8 % Concent Red Cell Distribution Width 15.1 % Platelet Count 220 TH/MM3 Mean Platelet Volume 7.5 FL Neutrophils (%) (Auto) 87.7 % Lymphocytes (%) (Auto) 4.5 % Monocytes (%) (Auto) 7.7 % Eosinophils (%) (Auto) 0.0 % Basophils (%) (Auto) 0.1 % Neutrophils # (Auto) 8.7 TH/MM3 Lymphocytes # (Auto) 0.5 TH/MM3 Monocytes # (Auto) 0.8 TH/MM3 Eosinophils # (Auto) 0.0 TH/MM3 Basophils # (Auto) 0.0 TH/MM3 CBC Comment AUTO DIFF Differential Total Cells 100 Counted Neutrophils % (Manual) 83 % Band Neutrophils % 1 % Lymphocytes % 6 % Monocytes % 4 % Neutrophils # (Manual) 8.9 TH/MM3 Metamyelocytes 1 % Myelocytes 5 % Differential Comment FINAL DIFF MANUAL Atypical Lymphocytes % Platelet Estimate NORMAL Platelet Morphology Comment NORMAL Sodium Level 142 MEQ/L Potassium Level 3.5 MEQ/L Chloride Level 105 MEQ/L Carbon Dioxide Level 28.1 MEQ/L Anion Gap 9 MEQ/L Blood Urea Nitrogen 19 MG/DL Creatinine 0.43 MG/DL Estimat Glomerular Filtration 145 ML/MIN Rate Random Glucose 117 MG/DL Lactic Acid Level 1.1 mmol/L Calcium Level 8.7 MG/DL Phosphorus Level 2.1 MG/DL Magnesium Level 1.9 MG/DL Total Bilirubin 0.4 MG/DL Aspartate Amino Transf 21 U/L (AST/SGOT) Alanine Aminotransferase 27 U/L (ALT/SGPT) Alkaline Phosphatase 49 U/L Total Protein 4.9 GM/DL Albumin 2.6 GM/DL Physical Exam General General Appearance: Well Developed, No Acute Distress, Comfortable Eyes Eye Exam: Pupils Equal, Pupils Reactive Ears & Nose Ears & Nose Exam: Nasal Mucosa [place] Throat Throat Exam: Oral Mucosa [place] & Moist Neck Neck Exam: Neck Supple Pulmonary Resp Exam: Breath Sounds Equal, No Distress, Decreased Bases Cardiology CV Exam: Regular, Good Perfusion Gastrointestinal/Abdomen GI Exam: Bowel Sounds Present, Distended, Bowel Sounds Hypoactive GI Remarks minimally tender Musculoskeletal MS Exam: Joints Intact Integumentary Skin Exam: Warm, Dry Extremeties Extremities Exam: No Edema, Pedal Pulses Palpable Neurologic Neuro Exam: Alert, Awake, Oriented, Speech Clear, Moving All Extremities, Sort Supervisor Equal Psychiatric Psych Exam: Appropriate Responses VTE Prophylaxis VTE Prophylaxis Device: SCDs VTE Prophylaxis Meds: Heparin PUD Prophylasis PUD Prophylaxis: Protonix Assessment/Plan Problem List: (1) Sigmoid diverticulosis (2) Hiatal hernia (3) Macrocytosis without anemia (4) Acute respiratory insufficiency (5) Free intraperitoneal air (6) COPD exacerbation (7) History of lobectomy of lung (8) History of lung cancer (9) Tobacco abuse (10) probable pna Assessment/Plan continue with present diet surgical input appreciated non surgical management for now IVF abx pain management resp. improving wean off IV steroids continue abx Duonebs continue home meds left arm swelling, check US of left arm r/o DVT OOB with assist, PT eval today dc ny IS Replace K Overall improving D/W RN D/W Dr. Garcia D/ W pt This patient was seen by myself and Dr. Garcia, this note is written on his behalf. Rocio Alcala Jan 12, 2017 10:48
--- NOTE | 2017-01-12 10:51 | HHI.PR ---
Subjective Subjective Notes Wants to walk in hallways today but knows she must have help Tolerating diet Objective Vitals/I&O Vital Signs Date Time Temp Pulse Resp B/P Pulse Ox O2 Delivery O2 Flow Rate FiO2 01/12/17 08:35 97.7 81 18 126/86 94 01/11/17 21:30 Nasal Cannula 4.00 01/09/17 20:00 91 Labs Laboratory Tests Test 01/12/17 05:15 White Blood Count 9.9 Red Blood Count 3.45 Hemoglobin 12.8 Hematocrit 36.8 Mean Corpuscular Volume 106.9 Mean Corpuscular Hemoglobin 37.2 Mean Corpuscular Hemoglobin 34.8 Concent Red Cell Distribution Width 15.1 Platelet Count 220 Mean Platelet Volume 7.5 Neutrophils (%) (Auto) 87.7 Lymphocytes (%) (Auto) 4.5 Monocytes (%) (Auto) 7.7 Eosinophils (%) (Auto) 0.0 Basophils (%) (Auto) 0.1 Neutrophils # (Auto) 8.7 Lymphocytes # (Auto) 0.5 Monocytes # (Auto) 0.8 Eosinophils # (Auto) 0.0 Basophils # (Auto) 0.0 CBC Comment AUTO DIFF Differential Total Cells 100 Counted Neutrophils % (Manual) 83 Band Neutrophils % 1 Lymphocytes % 6 Monocytes % 4 Neutrophils # (Manual) 8.9 Metamyelocytes 1 Myelocytes 5 Differential Comment FINAL DIFF MANUAL Atypical Lymphocytes Platelet Estimate NORMAL Platelet Morphology Comment NORMAL Sodium Level 142 Potassium Level 3.5 Chloride Level 105 Carbon Dioxide Level 28.1 Anion Gap 9 Blood Urea Nitrogen 19 Creatinine 0.43 Estimat Glomerular Filtration 145 Rate Random Glucose 117 Lactic Acid Level 1.1 Calcium Level 8.7 Phosphorus Level 2.1 Magnesium Level 1.9 Total Bilirubin 0.4 Aspartate Amino Transf 21 (AST/SGOT) Alanine Aminotransferase 27 (ALT/SGPT) Alkaline Phosphatase 49 Total Protein 4.9 Albumin 2.6 Date/Time Procedure Status Source Growth 01/09/17 08:29 Influenza Types A,B Antigen (SAMANTHA) - Final Complete Nasal Aspirate NEGATIVE FOR FLU A AND B ANTIGEN.... Cardiovascular: Regular Lungs: Clear Abdomen: Other (minimal pain with palpation; soft ) Extremities: No edema A/P Assessment and Plan 71 year old female with free air seen on CT; likely perforated viscous -Clinical exam continues to be stable -Tolerating diet -Monitor vitals -At this time will continue non-op treatment -OOB and mobilize I CERTIFY AND ATTEST THAT I PERSONALLY EXAMINED THIS PATIENT IN THEIR ROOM WITH THE CONCESSION WORKER PRESENT. MS KEARA IS DOCUMENTING OUR VISIT IN THE EMR AND ENTERED ORDERS UNDER MY DIRECT SUPERVISION. I DISCUSSED THE CARE PLAN WITH THE PATIENT AND THEIR [facility] STAFF. Conchis May MD, FACS Jan 12, 2017 10:50 Rip Elias MD Jan 17, 2017 13:42
[2017-01-12] MEDS ORDERED: POTASSIUM CHLORIDE 25 MEQ EFFERVESCENT TAB PO ONE (11:00)
[2017-01-13] VITALS (26 sets, daily range): BP systolic 91–112; BP diastolic 52–76; PULSE 70–181; RESP 16–25; TEMP 97.4–98.5; O2SAT 90–97
[2017-01-13] MEDS: metroNIDAZOLE 500 MG INJ 100 ML IV SCH ×3 (00:24→10:22)
[2017-01-13] MEDS: PIPERACIL-TAZO 3.375 GM PREMIX 50 ML IV SCH ×4 (00:24→18:44)
[2017-01-13] MEDS: ALBUTEROL SULFATE 90 MCG/ACT HFA 8 GM INHALER INH SCH ×6 (00:25→19:57)
--- NOTE | 2017-01-13 00:52 | RADRPT ---
EXAM DATE/TIME: 01/12/2017 22:55 [facility] COMPARISON: No previous studies available for comparison. INDICATIONS : Left arm swelling. MEDICAL HISTORY : Hypertension. Chronic obstructive pulmonary disease. Left lung cancer. SURGICAL HISTORY : Left upper lung lobectomy. ENCOUNTER: Initial ACUITY: 3 days PAIN SCORE: 2/10 LOCATION: Left arm. FINDINGS: There is spontaneous flow documented in the brachial, basilic, cephalic, axillary, and subclavian vei ns. The vessels are compressible and augmentation response is documented. No filling defects are se en. The flow is phasic with respiration. Direction of flow in the jugular vein is caudal. CONCLUSION: Normal examination. Bryan Lambert MD on January 13, 2017 at 0:50 Board Certified Radiologist. This report was verified electronically.
[2017-01-13] MEDS: MORPHINE SULFATE 4 MG/ML INJ IV PRN (01:26)
[2017-01-13] MEDS: DILTIAZEM 125 MG/NS 100 ML IV SCH ×6 (02:44→22:11)
[2017-01-13] MEDS: CHLORHEXIDINE GLUCONATE 2 % 1 PACK (2 CLOTHS) TOP SCH (03:35)
[2017-01-13] MEDS ORDERED: SODIUM CHLORID 0.9% IV ONE ×2 (04:30→05:30)
[2017-01-13] MEDS ORDERED: DILTIAZEM HCL 25 MG/5 ML VIAL IV ONE ×2 (05:30→12:00)
[2017-01-13] MEDS: INSULIN NovoLIN REGULAR SUPPLEMENTAL SCALE SQ SCH ×4 (05:42→21:00)
[2017-01-13] MEDS ORDERED: ADENOSINE IV SOLN 3 MG/ML 2 ML VIAL ONE ×2 (07:32)
[2017-01-13] MEDS: METOPROLOL TARTRATE 5 MG/5 ML VIAL IV PUSH SCH ×6 (07:58→22:11)
[2017-01-13] MEDS ORDERED: METOPROLOL TARTRATE 5 MG/5 ML VIAL IV PUSH ONE ×2 (08:00→09:30)
--- NOTE | 2017-01-13 08:20 | HHI.PR ---
Subjective Subjective Remarks Hallicat called, HR up to 180s ? afib RVR vs SVT was given Cardizem bolus, then put on drip at 15/hr given Adenosine 6 mg IVP x 1, no effect given Lopressor 5 mg IV x 2, HR down to 140's HR 100s now, afib ? aflutter denies CP, min SOB no abd. pain no fever has not had cardiac problems in the past going to ICU at this time Review of Systems Constitutional Constitutional Remarks 12 point ROS completed, negative except as noted above Vitals/Results Intake & Output 01/12/17 01/12/17 01/13/17 15:00 23:00 07:00 Intake Total 480 ml 1588 ml Output Total 400 ml Balance 80 ml 1588 ml Intake Oral 480 ml IV Total 1588 ml Output Urine Total 400 ml # Voids 3 3 # Bowel Movements 0 2 3 Vital Signs Vital Signs Date Time Temp Pulse Resp B/P Pulse Ox O2 Delivery O2 Flow Rate FiO2 01/13/17 07:45 94 6.00 01/13/17 05:38 178 01/13/17 05:35 178 01/13/17 04:34 97.4 178 20 91/62 95 01/13/17 04:00 178 01/13/17 03:21 180 18 98/61 95 01/13/17 02:45 180 18 97/58 96 01/13/17 02:45 181 01/13/17 00:25 94 Nasal Cannula 4.00 01/13/17 00:24 97.8 89 19 112/62 94 01/12/17 21:30 16 01/12/17 20:44 97.8 95 19 116/72 93 01/12/17 20:00 92 01/12/17 16:16 98.3 87 20 135/71 92 01/12/17 12:15 98.3 92 18 131/64 94 01/12/17 08:35 97.7 81 18 126/86 94 CBC/BMP: 01/12/17 0515 01/12/17 0515 Physical Exam General General Appearance: Well Developed, No Acute Distress, Comfortable Eyes Eye Exam: Pupils Equal, Pupils Reactive Ears & Nose Ears & Nose Exam: Nasal Mucosa No Name Throat Throat Exam: Oral Mucosa No Name & Moist Neck Neck Exam: Neck Supple Pulmonary Resp Exam: Breath Sounds Equal, No Distress, Decreased Bases Cardiology CV Exam: Good Perfusion, Arrhythmia, Tachycardia Gastrointestinal/Abdomen GI Exam: Soft, Bowel Sounds Present, Non-Distended, Bowel Sounds Hypoactive GI Remarks minimally tender Musculoskeletal MS Exam: Joints Intact Integumentary Skin Exam: Warm, Dry Extremeties Extremities Exam: No Edema, Pedal Pulses Palpable Neurologic Neuro Exam: Alert, Awake, Oriented, Speech Clear, Moving All Extremities, Sandblaster Stone Equal Psychiatric Psych Exam: Appropriate Responses VTE Prophylaxis VTE Prophylaxis Device: SCDs VTE Prophylaxis Meds: Heparin PUD Prophylasis PUD Prophylaxis: Protonix Assessment/Plan Problem List: (1) Sigmoid diverticulosis (2) Hiatal hernia (3) Macrocytosis without anemia (4) Acute respiratory insufficiency (5) Free intraperitoneal air (6) COPD exacerbation (7) History of lobectomy of lung (8) History of lung cancer (9) Tobacco abuse (10) probable pna (11) SVT vs afib RVR Assessment/Plan continue with present diet surgical input appreciated non surgical management for now IVF abx pain management resp. improving wean off IV steroids continue abx Duonebs left arm swelling, check US of left arm r/o DVT-negative 01/13-Afib RVR vs SVT, given Cardizem, Adenosine, Lopressor tx to ICU, CCM consult. D/W Dr. Tabares Serial cardiac enzymes, cardiology consult and 2D echo will check TSH, BMP, CBC, Mg monitor closely condition guarded Labs in am D/W RN D/W Dr. Garcia/Dr. Tabares D/ W pt This patient was seen by myself and Dr. Garcia, this note is written on his behalf. Rocio Alcala Jan 13, 2017 08:20
--- NOTE | 2017-01-13 08:22 | HHI.FPPN ---
Addendum to progress note ADDENDUM Reason for addendum: Additonal documentation Additional information Subjective: Residents responded to a [employer] page at 7:15am. Patient is a 71 y/o female with a past medical history of hypertension and COPD admitted for a perforated viscus. Patient's nurse at bedside states that around 1:30 AM this morning, she had a bowel movement and since then, her heart rate has been in the 180s. The patient's nurse contacted her hospitalist who belongs to the [facility] hospitalist group. The hospitalist started her on a Cardizem drip at 2:44 AM, but her heart rate did not respond. The patient stated that she was having some mild chest pain, but denied dizziness in an upright supine position or worsened shortness of breath. She was saturating at 91% on 4 L by nasal cannula. She stated that her breathing was much better than when she came into the hospital. She could feel her heart beating really fast. An EKG was being performed at the bedside as we arrived, which showed a regular tachycardic rhythm suspected to be supraventricular tachycardia. We ordered 1 dose of adenosine 6 mg IV push which unmasked the rhythm as atrial flutter. The decision was made to push Lopressor 5 mg IV since she did not respond to the Cardizem drip. After receiving 1 dose of Lopressor 5 mg IV push, her heart rate dropped to the 150s with intermittent elevations in the 180s. We pushed a second dose of Lopressor 5 mg IV and her heart rate dropped below 100, but still intermittently elevated to the 170s. Objective: Vitals: T: 97.4F, BP: 102/55, heart rate 182, O2 saturation 92% on 4 L by nasal cannula General: Thin-appearing female, appears older than stated age Cardiac: Tachycardic regular rhythm Respiratory: Increased work of breathing noted with use of neck accessory muscles Abdomen: Diffusely tender but mildly, nondistended MSK: No edema of lower extremities Neuro: Alert and oriented 3 Assessment/Plan: 71 year old female presenting with atrial flutter of minimum 6 hour duration resistant to Cardizem -Treated with adenosine and Lopressor 5 mg IV 2 as detailed above -Responsive to Lopressor. May consider drip in the ICU -The patient's primary hospitalist was consulted and decided to transfer the patient to the ICU. The group's nurse practitioner will discuss the patient with the single needle operator. A room was already available for the patient Seen and examined with Dr. Siena Mao, PGY 3 Debra Jimenez MD R1 Jan 13, 2017 08:22
[2017-01-13] MEDS: SODIUM CHLORIDE 0.9% FLUSH 5 ML FLUSH IV FLUSH SCH ×2 (09:00→19:56)
[2017-01-13] MEDS: DOCUSATE SODIUM 50 MG/SENNA 8.6 MG TAB PO SCH (09:00)
[2017-01-13] MEDS ORDERED: CHLORHEXIDINE GLUCONATE 2 % 1 PACK (2 CLOTHS)(extra cloths) TOPICAL PRN (09:00)
[2017-01-13] MEDS: SODIUM CHLORIDE 0.9% FLUSH 10 ML FLUSH IVF SCH (09:00)
[2017-01-13] MEDS: BUDESONIDE-FORMOTEROL 160/4.5 MCG INHALER INH SCH ×2 (09:00→19:57)
--- NOTE | 2017-01-13 09:40 | HHI.CCPN ---
Subjective Remarks/Hospital Course 71-year-old female. Date of admission 01/07/2017. Past medical history includes COPD not on supplemental oxygen at home, 60 years tobaccoism, history of left upper lobe lobectomy secondary to cancer [facility] and hypertension. She presents to the [place] ED with acute onset at 9 PM last night of abdominal pain. 10 out of 10. Sharp and stabbing without relief.I associated with nausea and vomiting. She states he's had abdominal pain "off and on" for the past month without relief. She states that she had an appointment with her primary on January 19 but could not wait until then. She was given Solu-Medrol 125 mg IV 1 and a DuoNeb treatment and placed on [address] scan abdomen pelvis reveals free peritoneal air without, free fluid within the abdomen, moderate hiatal hernia and sigmoid diverticulosis. Blood cultures 2 and Zos[address] was ordered. Dr. ho was contacted and requested admission to the seafood processor with a consultation to him. He will see here at [facility]. She states she had surgery multiple years ago to remove benign tumors from her abdomen at [facility] in [place] and agrees to admit Currently, patient requesting morphine for pain management. Hemodynamic stable. On 3 L nasal cannula 01/08: Currently afebrile. Pain currently 4-10 management with IV morphine when necessary. Sharp stabbing such clotting. Note is 64% bandemia this a.m. Still considering surgery. Hemodynamically stable. 01/09: Episode of tachycardia overnight resolved. Very anxious at times when she states she can't breathe, possibly relating to DuoNeb therapy?. Adjusting medications see below. Pain currently 2 out of 10. Blood pressure low normal overnight. Decreased urine output noted. 01/10: Afebrile. Pain is well controlled. Currently on 4 L nasal cannula. Tolerating diet. Positive BM 1. Subjective 01/11: Afebrile. Pain is well controlled. Remains on 4 L nasal cannula. Tolerating diet. BM 1. Essentially stable past 48 hours 01/13 Reconsult for SVT. Haicat was called as patient was tachycardic with HR 150 -180's. EKG showed probable SVT with HR 180. She was given Lopressor 5mg IV x2, Adenosine 6mg IV x1, Cardizem 5mg and transferred [place] [facility] Patient is on 5L oxygen. Objective Vital Signs Date Time Temp Pulse Resp B/P Pulse Ox O2 Delivery O2 Flow Rate FiO2 01/13/17 08:39 92 Nasal Cannula 5.00 01/13/17 06:10 180 18 102/59 01/13/17 04:34 97.4 01/12/17 08:00 91 Intake and Output 01/12/17 01/12/17 01/13/17 08:00 16:00 00:00 Intake Total 358 ml 480 ml Output Total 250 ml 400 ml Balance 108 ml 80 ml Result Diagram: 01/12/1715 01/12/17514 Imaging Last Impressions Chest X-Ray 01/12/17599 Signed Impressions: Service Date/Time: Thursday, January 12, 2017 05:57 - CONCLUSION: Stable bibasilar pulmonary infiltrates. Small left pleural effusion. Sebas Kirk MD Upper Extremity Ultrasound 01/12/17 0000 Signed Impressions: Service Date/Time: Thursday, January 12, 2017 22:55 - CONCLUSION: Normal examination. Bryan Lambert MD Abdomen X-Ray 01/09/17 06 Signed Impressions: Service Date/Time: Monday, January 09, 2017 05:08 - CONCLUSION: Normal examination. Agusto Funes Jr., MD Abdomen/Pelvis CT 01/07/17 0553 Signed Impressions: Service Date/Time: Saturday, January 07, 2017 07:07 - CONCLUSION: 1. There is a small volume of free intraperitoneal air suggestive of perforated bowel. The site of perforation is not identified however. 2. There is also a small volume of free fluid in the abdomen and pelvis with associated peritoneal enhancement. Enhancement of the peritoneum is typically associated with infection, hemorrhage, or malignancy. 3. Nonacute findings include moderate size hiatal hernia, severe atherosclerotic disease, and sigmoid diverticulosis. These findings were discussed with Dr. Chiang via telephone. Joo Mc MD Objective Remarks GENERAL: Patient is lying in bed in no resp distress SKIN: Warm and dry. HEAD: Normocephalic. EYES: No scleral icterus. No injection or drainage. NECK: Supple, trachea midline. No JVD or lymphadenopathy. CARDIOVASCULAR: Tachycardic without murmurs, gallops, or rubs. RESPIRATORY: Breath sounds equal bilaterally. No accessory muscle use. GASTROINTESTINAL: Abdomen soft, non-tender, nondistended. MUSCULOSKELETAL: No cyanosis, or edema. Neuro: Awake and alert Date of Insertion: Jan 08, 2017 Line: Central Venous Catheter Side: Left Location: Internal, Jugular A/P Assessment and Plan Neuro/Psych: Awake and alet Acetaminophen for fever [place]/morphine for pain management Melatonin 5 mg when necessary for insomnia CV: SVT Mild elevated trop History of hypertension Atherosclerotic vascular disease Patient was given Lopressor , Adenosine and Cardizem on Halicat will place on Lopressor 2.5mg IV Q6 Monitor HR and BP keep MAP>65mmHg. Lactic acid: 1.1 Will check 2D echo to eval LV function and check electrolytes. Check cardiac enzymes. Cards consulted. Resp: COPD History of lung cancer status post left upper lobe lobectomy Continue with oxygen keep sat >92% Incentive spirometry while awake Check CXR Bronchodilators Symbicort 2 puffs twice a day Solu-Medrol 40 IV daily GI: Free intraperitoneal air on CT abdomen 01/07 unclear etiology Hiatal hernia Sigmoid diverticulosis History of removal of 2 benign abdominal masses Low albumin 01/07 CT abdomen/pelvis revealed free intracranial air unknown source. Free fluid within the abdomen. Hiatal hernia and liver cyst and endoscopic vascular disease and sigmoid diverticulosis. Dr. ho/surgery consulted. Currently with conservative management On regular diet Protonix 40 mg twice a day for GI prophylaxis LFTs within normal limits. Bilirubin within normal limits. : Monitor renal function, I/O's, electrolytes replacement per protocol. Endo: SSI if indicated to maintain euglycemia Heme: Macrocytosis Monitor CBC B12,TSH within normal limits. Folate low at 2.3. On folate 1 mg by mouth daily ID: Prevotella, Bacteroides bacteremia 01/07 Received 1 dose of Zosyn at [place]. . Previously treated with Cipro, Flagyl and Diflucan 3 days Continue with abx per ID ( On Zosyn and Flagyl) monitor for signs of infections ( Fever, WBC) Pertinent cultures Blood cultures 2 - 01/07 Prevotella species and Bacteroides Uniformis Recheck MSK: PT/OT evaluate and treat Access -Left IJ TLC placed 01/08 Prophylaxis - GI - Protonix twice a day - DVT - SCD/heparin subcutaneous Check labs today Level 3 Trinidad Red MD Jan 13, 2017 09:40 MSK: PT/OT evaluate and treat Access -Left IJ TLC day #4 placed 01/08 Prophylaxis - GI - Protonix twice a day - DVT - SCD/heparin subcutaneous Critical Care: The total care time was 35 minutes. Time to perform other separately billable procedures was not included in the critical care time. Patient is stable from a critical care medicine standpoint. We will assign care to the hospitalist in a.m. 01/12. Okay to transfer to floor Trinidad Red MD Jan 13, 2017 09:40
[2017-01-13] MEDS: HEPARIN SODIUM - SQ 10,000 UNITS/ML VIAL SQ SCH ×2 (10:21→19:57)
[2017-01-13] MEDS: methylPREDNISolone SOD SUCC 40 MG/1 ML VIAL IV PUSH SCH (10:21)
[2017-01-13] MEDS: PANTOPRAZOLE SOD 40 MG DELAYED RELEASE TAB PO SCH ×2 (10:21→19:56)
[2017-01-13] MEDS: FOLIC ACID 1 MG TAB PO SCH (10:21)
[2017-01-13 11:19] LABS: AUTOMATED NEUTROPHIL # 12.6 TH/MM3 (1.8-7.7); EOSINOPHIL % 0.1 % (0.0-4.0); HEMATOCRIT 37.6 % (35.0-46.0); HEMO FLAGS AUTO DIFF; LYMPH % 5.2 % (9.0-44.0); LYMPHOCYTE # 0.8 TH/MM3 (1.0-4.8); MEAN CELL VOLUME 107.2 FL (80.0-100.0); MEAN CORPUSCULAR HEMOGLOBIN 36.6 PG (27.0-34.0); MEAN CORPUSCULAR HGB CONC 34.1 % (32.0-36.0); MONO % 8.4 % (0.0-8.0); NEUT % 86.3 % (16.0-70.0); PLATELET COUNT 239 TH/MM3 (150-450); RED CELL DISTRIBUTION WIDTH 15.1 % (11.6-17.2); WHITE BLOOD COUNT 14.6 TH/MM3 (4.0-11.0)
[2017-01-13 11:43] LABS: ALT (GPT) 23 U/L (10-53); ANION GAP 8 MEQ/L (5-15); AST (GOT) 19 U/L (15-37); BICARBONATE 28.9 MEQ/L (21.0-32.0); BLOOD UREA NITROGEN 17 MG/DL (7-18); CHLORIDE 106 MEQ/L (98-107); GLOMERULAR FILTRATION RATE 167 ML/MIN (>89); MAGNESIUM 1.5 MG/DL (1.5-2.5); POTASSIUM 3.5 MEQ/L (3.5-5.1); SODIUM (NA) 143 MEQ/L (136-145)
--- NOTE | 2017-01-13 11:46 | HHI.PR ---
Subjective Subjective Notes Resting in bed Son at bedside Transferred to [facility] due to increase HR Objective Vitals/I&O Vital Signs Date Time Temp Pulse Resp B/P Pulse Ox O2 Delivery O2 Flow Rate FiO2 01/13/17 08:39 92 Nasal Cannula 5.00 01/13/17 06:10 180 18 102/59 01/13/17 04:34 97.4 01/12/17 08:00 91 Labs Laboratory Tests Test 01/13/17 10:30 White Blood Count 14.6 Red Blood Count 3.50 Hemoglobin 12.8 Hematocrit 37.6 Mean Corpuscular Volume 107.2 Mean Corpuscular Hemoglobin 36.6 Mean Corpuscular Hemoglobin 34.1 Concent Red Cell Distribution Width 15.1 Platelet Count 239 Mean Platelet Volume 8.1 Neutrophils (%) (Auto) 86.3 Lymphocytes (%) (Auto) 5.2 Monocytes (%) (Auto) 8.4 Eosinophils (%) (Auto) 0.1 Basophils (%) (Auto) 0.0 Neutrophils # (Auto) 12.6 Lymphocytes # (Auto) 0.8 Monocytes # (Auto) 1.2 Eosinophils # (Auto) 0.0 Basophils # (Auto) 0.0 CBC Comment AUTO DIFF Date/Time Procedure Status Source Growth 01/13/17 10:52 Aerobic Blood Culture Received Blood Peripheral Pending 01/13/17 10:52 Anaerobic Blood Culture Received Blood Peripheral Pending 01/09/17 08:29 Influenza Types A,B Antigen (SAMANTHA) - Final Complete Nasal Aspirate NEGATIVE FOR FLU A AND B ANTIGEN.... Cardiovascular: Regular Lungs: Clear Abdomen: Other (miniml pain with palpation ) Extremities: No edema A/P Assessment and Plan 71 year old female with free air seen on CT; likely perforated viscous -Clinical exam continues to be stable -Tolerating diet ---add Ensure -Cardiology consulted -At this time will continue non-op treatment -OOB and mobilize I CERTIFY AND ATTEST THAT I PERSONALLY EXAMINED THIS PATIENT IN THEIR ROOM WITH THE PROTOZOOLOGIST PRESENT. MS SARAH IS DOCUMENTING OUR VISIT IN THE EMR AND ENTERED ORDERS UNDER MY DIRECT SUPERVISION. I DISCUSSED THE CARE PLAN WITH THE PATIENT AND THEIR [facility] STAFF. Conchis May MD, FACS Jan 13, 2017 11:45 Rip Elias MD Jan 17, 2017 13:45
[2017-01-13 11:53] LABS: ALKALINE PHOSPHATASE 43 U/L (45-117); TOTAL BILIRUBIN ADULT 0.4 MG/DL (0.2-1.0)
[2017-01-13 11:55] LABS: BANDS 8 % (0-6); NEUTROPHIL # MANUAL DIFF 12.7 TH/MM3 (1.8-7.7); PLATELET ESTIMATE SMEAR NORMAL (NORMAL); PLATELET MORPHOLOGY NORMAL (NORMAL); POLYS (SEG NEUTROPHILS) 79 % (16-70); SCAN/DIFF FINAL DIFF MANUAL; WBC DIFF SAMPLE 100
[2017-01-13 12:00] LABS: CREATINE KINASE 90 U/L (26-192)
[2017-01-13] MEDS ORDERED: POTASSIUM PHOSPHATE MONOBASIC 500 MG TAB PO PRN (12:30)
[2017-01-13] MEDS ORDERED: POTASSIUM CHLOR 20 MEQ PREMIX 100 ML IV PRN ×2 (12:30)
[2017-01-13] MEDS ORDERED: POTASSIUM PHOSPHATE INJ 30 MMOL in SODIUM CHLOR 0.9% 250 ML INJ 250 ML IV PRN (12:30)
[2017-01-13] MEDS ORDERED: MAGNESIUM SULFATE INJ 2 GM in SODIUM CHLORIDE 0.9% INJ 96 ML IV PRN (12:30)
[2017-01-13] MEDS ORDERED: SODIUM PHOSPHATE INJ 30 MMOL in SODIUM CHLOR 0.9% 250 ML INJ 240 ML IV PRN (12:30)
[2017-01-13] MEDS ORDERED: POTASSIUM PHOSPHATE MONOBASIC 500 MG TAB PO/TUBE PRN (12:30)
[2017-01-13] MEDS ORDERED: POTASSIUM CHLOR 40 MEQ PREMIX 100 ML IV PRN (12:30)
[2017-01-13] MEDS ORDERED: MAGNESIUM SULFATE INJ 4 GM in SODIUM CHLORIDE 0.9% INJ 92 ML IV PRN (12:30)
[2017-01-13] MEDS ORDERED: MAGNESIUM OXIDE 400 MG TAB PO PRN (12:30)
--- NOTE | 2017-01-13 13:07 | EC ---
Study Study Date:01/13/2017 STUDY CONCLUSIONS SUMMARY - Left ventricle: The cavity size was normal. Wall thickness was normal. Systolic function was normal. The estimated ejection fraction was in the range of 50% to 55%. Wall motion was normal; there were no regional wall motion abnormalities. - Tricuspid valve: Severe regurgitation. - Pulmonary arteries: PA peak pressure: 49mm Hg (S). - Pericardium, extracardiac: There was a left pleural effusion. If LV function is below 40, please consider prescribing an ACEI or ARB or document rationale for non-use. PROCEDURE DATA STUDY STATUS: Elective. Procedure: Transthoracic echocardiography. Image quality was good. Scanning was performed from the parasternal, apical, and subcostal acoustic windows. Study completion: The patient tolerated the procedure well. Transthoracic echocardiography. M-mode, complete 2D, complete spectral Doppler, and color Doppler. Height: Height: 60in. Weight: Weight: 93.8lb. Body mass index: BMI: 18.4kg/m^2. Body surface area: BSA: 1.35m^2. Patient status: Inpatient. CARDIAC ANATOMY LEFT VENTRICLE: The cavity size was normal. Wall thickness was normal. Systolic function was normal. The estimated ejection fraction was in the range of 50% to 55%. Wall motion was normal; there were no regional wall motion abnormalities. AORTIC VALVE: Trileaflet; mildly thickened leaflets. Doppler: Transvalvular velocity was within the normal range. There was no stenosis. No regurgitation. AORTA: Aortic root: The aortic root was normal in size. MITRAL VALVE: Structurally normal valve. Doppler: Transvalvular velocity was within the normal range. There was no evidence for stenosis. Trace to mild regurgitation. Valve area by pressure half-time: 9.57cm^2. Indexed valve area by pressure half-time: 7.09cm^2/m^2. Peak gradient: 3mm Hg (D). LEFT ATRIUM: The atrium was normal in size. RIGHT VENTRICLE: The cavity size was normal. Wall thickness was normal. PULMONIC VALVE: Doppler: Transvalvular velocity was within the normal range. There was no evidence for stenosis. No regurgitation. TRICUSPID VALVE: Structurally normal valve. Doppler: Transvalvular velocity was within the normal range. Severe regurgitation. Peak gradient: 50mm Hg (D). PULMONARY ARTERY: The main pulmonary artery was normal-sized. Systolic pressure was within the normal range. RIGHT ATRIUM: The atrium was normal in size. PERICARDIUM: There was no pericardial effusion. SYSTEMIC VEINS: Inferior vena cava: The vessel was normal in size. Pleura: There was a left pleural effusion. Patient weight: 93.8lb _Ejection fraction:_ 65-75% _Fractional shortening:_ 32% up to 5Kg 5-11.5Kg 11.6-22.9Kg 23-45Kg 45-57Kg Aortic Root 7-13 <17 13-22 17-27 17-27 LA diam 6-13 <23 24-38 33-47 37-40 RVID 10-17 7-15 7-15 7-18 8-17 LVIDd 12-22 <32 24-38 33-47 37-40 LVPW 2-4 3-6 5-7 6-8 7-8 IVS 2-4 3-6 5-7 6-8 7-8 BASIC MEASUREMENTS ADULT NORMAL Left ventricle LV internal dimension, ED, chordal *19.7 mm 43-52 level, PLAX LV internal dimension, ES, chordal *14.1 mm 23-38 level, PLAX Fractional shortening, chordal level, *28 % >29 PLAX LV posterior wall thickness, ED 9.52 mm IVS/LVPW ratio, ED 1 <1.3 Volume, ED, MOD, 1-plane 19 ml Volume, ES, MOD, 1-plane 9 ml Ejection fraction, MOD, 1-plane 53 % Stroke volume, MOD, 1-plane 10 ml Volume index, ED, MOD, 1-plane 14 ml/m^2 Volume index, ES, MOD, 1-plane 7 ml/m^2 Stroke index, MOD, 1-plane 7.4 ml/m^2 Ventricular septum Septal thickness, ED 9.51 mm Aortic valve Leaflet separation *14 mm 15-26 Left atrium Anterior-posterior dimension 23 mm Anterior-posterior dimension index 1.7 cm/m^2 <2.2 Right ventricle RV internal dimension, ED, PLAX 20.8 mm 19-38 BASIC MEASUREMENTS ADULT NORMAL Aortic valve Leaflet separation *14 mm 15-26 Aorta Root diameter, ED 24 mm 20-37 DOPPLER MEASUREMENTS ADULT NORMAL Main pulmonary artery Pressure, S *49 mm Hg =30 Aortic valve Peak velocity, S 114 cm/s Mitral valve Peak E-wave velocity 90.3 cm/s Peak A-wave velocity 87.4 cm/s Pressure half-time 23 ms Peak gradient, D 3 mm Hg Peak E/A ratio 1 Valve area, pressure half-time 9.57 cm^2 Valve area index, pressure half-time 7.09 cm^2/m^2 Tricuspid valve Peak gradient, D 50 mm Hg Maximal inflow velocity 339 cm/s Regurgitant peak velocity 323 cm/s Peak RV-RA gradient, S 42 mm Hg Maximal regurgitant velocity 323 cm/s Systemic veins Estimated CVP 10 mm Hg Right ventricle RV pressure, S *52 mm Hg <30 Pulmonic valve Peak velocity, S 82.8 cm/s LEGEND: Mean values are shown as u=mean value. Asterisk (*) subramanian values outside specified normal range. Prepared and signed by Erick Bernard [id number]
--- NOTE | 2017-01-13 13:36 | RADRPT ---
EXAM DATE/TIME: 01/13/2017 12:20 [facility] COMPARISON: CHEST SINGLE AP, January 12, 2017, 5:57. INDICATIONS : Short of breath. MEDICAL HISTORY : Hypertension. Chronic obstructive pulmonary disease. Left lung cancer. SURGICAL HISTORY : Left upper lung lobectomy. ENCOUNTER: Subsequent ACUITY: 4 - 6 days PAIN SCORE: 2/10 LOCATION: Bilateral chest FINDINGS: Single AP view of the chest. Left IJ central venous catheter remains in place. Persistent bilateral l ower lung zone opacity and bilateral pleural effusions. No significant interval change. No evidence o f pneumothorax. CONCLUSION: No significant change with persistent bilateral lower lung zone pulmonary parenchymal opacity suggest ing pulmonary edema and bilateral pleural effusions. Alex Rivers MD on January 13, 2017 at 13:34 Board Certified Radiologist. This report was verified electronically.
[2017-01-13] MEDS ORDERED: DIGOXIN 0.5 MG/2 ML VIAL IV PUSH ONE (14:00)
[2017-01-13] MEDS ORDERED: BUMETANIDE INJ 1 MG/4 ML VIAL IV PUSH ONE (14:00)
[2017-01-13] MEDS: UMECLIDINIUM 62.5 MCG/VILANTEROL 25 MCG INHALER INH SCH (14:01)
--- NOTE | 2017-01-13 14:11 | HHI.IDPN ---
Subjective Subjective Remarks pt is transferred to ICU after deveopped RVR Afib yday co diarrhea no abd pain HR is i 150s, on cardizem drip Antibiotics zosyn IV flagyl Allergies: Coded Allergies: Azithromycin (Verified Allergy, Severe, Anaphylaxis, 01/07/17) Objective . Vital Signs Date Time Temp Pulse Resp B/P Pulse Ox O2 Delivery O2 Flow Rate FiO2 01/13/17 08:39 92 Nasal Cannula 5.00 01/13/17 07:45 94 6.00 01/13/17 06:10 180 18 102/59 95 01/13/17 05:50 177 18 108/60 95 01/13/17 05:38 178 01/13/17 05:35 178 01/13/17 05:35 177 18 106/58 94 01/13/17 04:34 97.4 178 20 91/62 95 01/13/17 04:30 180 101/58 95 01/13/17 04:15 175 16 103/59 96 01/13/17 04:00 178 01/13/17 03:21 180 18 98/61 95 01/13/17 03:15 180 18 98/61 95 01/13/17 03:02 180 18 97/66 96 01/13/17 02:45 180 18 97/58 96 01/13/17 02:45 181 01/13/17 02:40 181 18 99/63 96 01/13/17 00:25 94 Nasal Cannula 4.00 01/13/17 00:24 97.8 89 19 112/62 94 01/12/17 21:30 16 01/12/17 20:44 97.8 95 19 116/72 93 01/12/17 20:00 92 01/12/17 16:16 98.3 87 20 135/71 92 01/12/17 01/12/17 01/13/17 15:00 23:00 07:00 Intake Total 480 ml 1588 ml Output Total 400 ml Balance 80 ml 1588 ml Intake Oral 480 ml IV Total 1588 ml Output Urine Total 400 ml # Voids 3 3 # Bowel Movements 0 2 3 . Laboratory Tests Test 01/12/17 01/13/17 05:15 10:30 White Blood Count 9.9 TH/MM3 14.6 TH/MM3 Red Blood Count 3.45 MIL/MM3 3.50 MIL/MM3 Hemoglobin 12.8 GM/DL 12.8 GM/DL Hematocrit 36.8 % 37.6 % Mean Corpuscular Volume 106.9 FL 107.2 FL Mean Corpuscular Hemoglobin 37.2 PG 36.6 PG Mean Corpuscular Hemoglobin 34.8 % 34.1 % Concent Red Cell Distribution Width 15.1 % 15.1 % Platelet Count 220 TH/MM3 239 TH/MM3 Mean Platelet Volume 7.5 FL 8.1 FL Neutrophils (%) (Auto) 87.7 % 86.3 % Lymphocytes (%) (Auto) 4.5 % 5.2 % Monocytes (%) (Auto) 7.7 % 8.4 % Eosinophils (%) (Auto) 0.0 % 0.1 % Basophils (%) (Auto) 0.1 % 0.0 % Neutrophils # (Auto) 8.7 TH/MM3 12.6 TH/MM3 Lymphocytes # (Auto) 0.5 TH/MM3 0.8 TH/MM3 Monocytes # (Auto) 0.8 TH/MM3 1.2 TH/MM3 Eosinophils # (Auto) 0.0 TH/MM3 0.0 TH/MM3 Basophils # (Auto) 0.0 TH/MM3 0.0 TH/MM3 CBC Comment AUTO DIFF AUTO DIFF Differential Total Cells 100 100 Counted Neutrophils % (Manual) 83 % 79 % Band Neutrophils % 1 % 8 % Lymphocytes % 6 % 4 % Monocytes % 4 % 9 % Neutrophils # (Manual) 8.9 TH/MM3 12.7 TH/MM3 Metamyelocytes 1 % Myelocytes 5 % Differential Comment FINAL DIFF FINAL DIFF MANUAL MANUAL Atypical Lymphocytes % Platelet Estimate NORMAL NORMAL Platelet Morphology Comment NORMAL NORMAL Red Cell Morphology Comment NORMAL Laboratory Tests Test 01/12/17 01/13/17 05:15 10:30 Sodium Level 142 MEQ/L 143 MEQ/L Potassium Level 3.5 MEQ/L 3.5 MEQ/L Chloride Level 105 MEQ/L 106 MEQ/L Carbon Dioxide Level 28.1 MEQ/L 28.9 MEQ/L Anion Gap 9 MEQ/L 8 MEQ/L Blood Urea Nitrogen 19 MG/DL 17 MG/DL Creatinine 0.43 MG/DL 0.38 MG/DL Estimat Glomerular Filtration 145 ML/MIN 167 ML/MIN Rate Random Glucose 117 MG/DL 78 MG/DL Lactic Acid Level 1.1 mmol/L Calcium Level 8.7 MG/DL 8.1 MG/DL Phosphorus Level 2.1 MG/DL 1.9 MG/DL Magnesium Level 1.9 MG/DL 1.5 MG/DL Total Bilirubin 0.4 MG/DL 0.4 MG/DL Aspartate Amino Transf 21 U/L 19 U/L (AST/SGOT) Alanine Aminotransferase 27 U/L 23 U/L (ALT/SGPT) Alkaline Phosphatase 49 U/L 43 U/L Total Protein 4.9 GM/DL 4.2 GM/DL Albumin 2.6 GM/DL 2.2 GM/DL Total Creatine Kinase 90 U/L Troponin I 0.13 NG/ML B-Type Natriuretic Peptide 345 PG/ML Thyroid Stimulating Hormone 2.800 uIU/ML 3rd Gen Microbiology Date/Time Procedure Status Source Growth 01/13/17 10:50 Aerobic Blood Culture Received Blood Peripheral Pending 01/13/17 10:50 Anaerobic Blood Culture Received Blood Peripheral Pending 01/13/17 10:52 Aerobic Blood Culture Received Blood Peripheral Pending 01/13/17 10:52 Anaerobic Blood Culture Received Blood Peripheral Pending Imaging Last Impressions Chest X-Ray 01/13/17 0000 Signed Impressions: Service Date/Time: Friday, January 13, 2017 12:20 - CONCLUSION: No significant change with persistent bilateral lower lung zone pulmonary parenchymal opacity suggesting pulmonary edema and bilateral pleural effusions. Alex Rivers MD Upper Extremity Ultrasound 01/12/17 0000 Signed Impressions: Service Date/Time: Thursday, January 12, 2017 22:55 - CONCLUSION: Normal examination. Bryan Lambert MD Abdomen X-Ray 01/09/17 0600 Signed Impressions: Service Date/Time: Monday, January 09, 2017 05:08 - CONCLUSION: Normal examination. Agusto Funes Jr., MD Abdomen/Pelvis CT 01/07/17 0553 Signed Impressions: Service Date/Time: Saturday, January 07, 2017 07:07 - CONCLUSION: 1. There is a small volume of free intraperitoneal air suggestive of perforated bowel. The site of perforation is not identified however. 2. There is also a small volume of free fluid in the abdomen and pelvis with associated peritoneal enhancement. Enhancement of the peritoneum is typically associated with infection, hemorrhage, or malignancy. 3. Nonacute findings include moderate size hiatal hernia, severe atherosclerotic disease, and sigmoid diverticulosis. These findings were discussed with Dr. Chiang via telephone. Joo Mc MD Physical Exam CONSTITUTIONAL/GENERAL: This is a thin frail elderly patient, in no apparent distress. TUBES/LINES/DRAINS: SKIN: No jaundice, rashes, or lesions EYES: No scleral icterus. N ENT: HOral mucosae moist . Poor dentition NECK: Trachea midline. Supple, nontender. No palpable thyroid enlargement or nodularity. CARDIOVASCULAR: Regular rate and rhythm without murmurs, gallops, or rubs. No JVD. Peripheral pulses symmetric. RESPIRATORY/CHEST: Symmetric, unlabored respirations. Clear to auscultation. Breath sounds very diminished bilaterally. GASTROINTESTINAL: Abdomen soft, non-tender, not distended. No hepato- splenomegaly, or palpable masses. No guarding. Bowel sounds present. MUSCULOSKELETAL: Extremities without clubbing, cyanosis, or edema. No mottling NEUROLOGICAL: Awake and alert. NON FOCAL. PSYCHIATRIC: No obvious anxiety/depression. no apparent hallucinations or other psychotic thought process. Assessment & Plan Remarks sp viscus perforation, tolerating non-op treatment Anaerobic sepsis - likely 2/2 viscus perf: prevotella, bacteroides Diarrea, abx associated Unstabel 2/2 AVR Afib, no e/o ongoing sepsis physiology cont zosyn - chk stool for C.diff - dc Graciela Gilmore MD Jan 13, 2017 14:11
--- NOTE | 2017-01-13 15:33 | MB ---
cc: ELMER DESHPANDE M.D. DATE OF CONSULTATION: 01/13/2017 HISTORY OF PRESENT ILLNESS Antionette is a very pleasant 71-year-old lady with a history of COPD admitted with a perforated viscus, currently being treated conservatively due to severe pulmonary disease, found to be in SVT, rate of 150. She is currently not taking p.o. She appears to become comfortable, resting in bed talking to her son. Otherwise denies any fever, chills, cough, GI or bleeding, PND, orthopnea, syncope or dizziness. PAST MEDICAL HISTORY 1. Per history of present illness. 2. Hypertension. 3. Sigmoid diverticulosis. 4. Tobacco use. 5. History of lung cancer. 6. Lobectomy of the left upper lobe. 7. Removal of abdominal masses x2. ALLERGIES AZITHROMYCIN. SOCIAL HISTORY Has been smoking for 60 years. Does drink half a bottle of wine per day. MEDICATIONS 1. Potassium supplementation. 2. Magnesium supplementation. 3. Sodium phosphate. 4. Potassium phosphate. 5. Cardizem IV bolus 10 mg x1. 6. Metoprolol 2.5 q.6h. 7. Methylprednisolone 40, daily. 8. Metoprolol 5 mg IV q.5 minutes. 9. Cardizem drip. 10.Folic acid. 11.Melatonin. 12.Pantoprazole 40, b.i.d. 13.Piperacillin/tazobactam. 14.Heparin 5000 subcu q.12h. 15.Symbicort. 16.Metronidazole IV q.6h. PHYSICAL EXAMINATION VITAL SIGNS: Blood pressure 102/59, pulse at the bedside 150, appears to be regular. Sats 92% on 5 liters nasal cannula. GENERAL: She is alert and oriented x3, in no distress. NECK: Supple. No JVD. No bruits. CARDIOVASCULAR: S1, S2. No murmurs, rubs or gallops. LUNGS: Decreased air movement bilaterally. ABDOMEN: Nondistended, nontender. EXTREMITIES: No lower extremity edema. IMAGING A chest x-ray shows stable bibasilar pulmonary infiltrates, small left pleural effusion. EKG EKG shows SVT at 181 beats per minute, nonspecific ST-T wave changes. ECHOCARDIOGRAM Echocardiogram read by myself shows EF of 50-55%, left pleural effusion, PA pressure of 49 mmHg. LABORATORY White count 14.6, hemoglobin 12.8, hematocrit 37.6, platelet count 239. Sodium 143, potassium 3.5, chloride 106, bicarb 28.9, BUN 16, creatinine 0.38. BNP is 345. Troponin is 0.13. TSH is 2.0. INR 1.3. Blood gas pH 7.45, PCO2 38, PO2 65 on room air. DIAGNOSIS 1. Non-ST elevation myocardial infarction. 2. Supraventricular tachycardia. 3. Perforated viscus. 4. Chronic obstructive pulmonary disease. 5. Hypoxia. 6. Decompensated congestive heart failure. 7. Pleural effusion. 8. Tobacco abuse. 9. Elevated white count. DISCUSSION Her heart rate is certainly going to be difficult to manage given her severe COPD which relatively contraindicates amiodarone use or beta durga use. Her hypotension is going to limit the amount of Cardizem. Will try digoxin 0.5 IV. We are also going to need a consult with Dr. Sanderson. Regarding her elevated troponin I think this is probably secondary to hypoxia tachycardia as opposed to a primary obstructive event. Given the patient's perforated viscus I am not sure she is a candidate for anticoagulation but if she is will treat her with aspirin 81 mg daily. I recommend smoking cessation. MD LILY Kim/BT /1:39 PM /3:19 PM
[2017-01-13 17:50] LABS: C. DIFF EPI 027 PRESUMPTIVE NEGATIVE (NEGATIVE); C. DIFF TOXIN PCR NEGATIVE (NEGATIVE)
--- NOTE | 2017-01-13 22:19 | EKG ---
Date Performed: 01/13/2017 Time Performed: 20:31:49 PTAGE: 71 years EKG: Sinus rhythm WITH SHORT OR INTERVAL LOW QRS VOLTAGE IN EXTREMITY LEADS NONSPECIFIC T-WAVE ABNORMALITY BORDERLINE ECG PREVIOUS TRACING : 01/13/2017 07.26 Compared to the previous tracing tachycardia no longer pres ent DOCTOR: Janis Guardado Interpretating Date/Time 01/13/2017 22:17:14
[2017-01-14] VITALS (13 sets, daily range): BP systolic 109–120; BP diastolic 58–61; PULSE 65–85; RESP 17–23; TEMP 97.4–98.5; O2SAT 91–99
[2017-01-14] MEDS: PIPERACIL-TAZO 3.375 GM PREMIX 50 ML IV SCH ×5 (00:13→23:45)
[2017-01-14] MEDS: ALBUTEROL SULFATE 90 MCG/ACT HFA 8 GM INHALER INH SCH ×7 (00:13→23:45)
[2017-01-14] MEDS: CHLORHEXIDINE GLUCONATE 2 % 1 PACK (2 CLOTHS)(taper/protocol) TOPICAL SCH (00:30)
[2017-01-14] MEDS: METOPROLOL TARTRATE 5 MG/5 ML VIAL IV PUSH SCH ×4 (04:29→22:32)
[2017-01-14] MEDS: MORPHINE SULFATE 4 MG/ML INJ IV PRN (04:39)
[2017-01-14 04:43] LABS: AUTOMATED NEUTROPHIL # 14.1 TH/MM3 (1.8-7.7); BASOPHIL % 0.1 % (0.0-2.0); EOSINOPHIL % 0.1 % (0.0-4.0); HEMATOCRIT 33.2 % (35.0-46.0); LYMPH % 5.6 % (9.0-44.0); LYMPHOCYTE # 0.9 TH/MM3 (1.0-4.8); MEAN CORPUSCULAR HEMOGLOBIN 36.1 PG (27.0-34.0); MONO % 5.9 % (0.0-8.0); NEUT % 88.3 % (16.0-70.0); PLATELET COUNT 285 TH/MM3 (150-450); RED BLOOD COUNT 3.14 MIL/MM3 (4.00-5.30); RED CELL DISTRIBUTION WIDTH 14.8 % (11.6-17.2); WHITE BLOOD COUNT 15.9 TH/MM3 (4.0-11.0)
[2017-01-14 04:47] LABS: HEMO FLAGS AUTO DIFF
[2017-01-14 04:58] LABS: POTASSIUM 3.1 MEQ/L (3.5-5.1)
[2017-01-14 05:48] LABS: OVALOCYTES 1+ (NORMAL); SCAN/DIFF AUTO DIFF CONFIRMED
[2017-01-14] MEDS: INSULIN NovoLIN REGULAR SUPPLEMENTAL SCALE SQ SCH ×4 (06:41→20:32)
[2017-01-14 07:30] LABS: MAGNESIUM 1.6 MG/DL (1.5-2.5)
--- NOTE | 2017-01-14 07:55 | EKG ---
Date Performed: 01/13/2017 Time Performed: 07:26:58 PTAGE: 71 years EKG: Supraventricular tachycardia that is most likely atrial flutter with 2:[address]-T changes are nonspecific Abnormal ECG Compared to PREVIOUS TRACING , the atrial flutter is a new finding. The nonspecific ST-T wave changes are new. PREVIOUS TRACIN01/07/2017 10.23 DOCTOR: Stephie Schroeder Interpretating Date/Time 01/14/2017 07:54:23
[2017-01-14] MEDS: SODIUM CHLORIDE 0.9% FLUSH 5 ML FLUSH IV FLUSH SCH ×2 (08:55→20:27)
[2017-01-14] MEDS: UMECLIDINIUM 62.5 MCG/VILANTEROL 25 MCG INHALER INH SCH (08:55)
[2017-01-14] MEDS: BUDESONIDE-FORMOTEROL 160/4.5 MCG INHALER INH SCH ×2 (08:56→20:32)
[2017-01-14] MEDS: PANTOPRAZOLE SOD 40 MG DELAYED RELEASE TAB PO SCH ×2 (08:57→20:28)
[2017-01-14] MEDS: FOLIC ACID 1 MG TAB PO SCH (08:57)
[2017-01-14] MEDS: HEPARIN SODIUM - SQ 10,000 UNITS/ML VIAL SQ SCH ×2 (08:57→20:28)
[2017-01-14] MEDS: DOCUSATE SODIUM 50 MG/SENNA 8.6 MG TAB PO SCH (08:57)
[2017-01-14] MEDS: methylPREDNISolone SOD SUCC 40 MG/1 ML VIAL IV PUSH SCH (08:57)
[2017-01-14] MEDS: SODIUM CHLORIDE 0.9% FLUSH 10 ML FLUSH IVF SCH (08:58)
[2017-01-14] MEDS: POTASSIUM CHLOR 40 MEQ PREMIX 100 ML IV PRN ×2 (09:08→11:21)
--- NOTE | 2017-01-14 09:43 | HHI.CCPN ---
Subjective Remarks/Hospital Course 71-year-old female. Date of admission 01/07/2017. Past medical history includes COPD not on supplemental oxygen at home, 60 years tobaccoism, history of left upper lobe lobectomy secondary to cancer [facility] and hypertension. She presents to the [facility] ED with acute onset at 9 PM last night of abdominal pain. 10 out of 10. Sharp and stabbing without relief.I associated with nausea and vomiting. She states he's had abdominal pain "off and on" for the past month without relief. She states that she had an appointment with her primary on January 19 but could not wait until then. She was given Solu-Medrol 125 mg IV 1 and a DuoNeb treatment and placed on [address] scan abdomen pelvis reveals free peritoneal air without, free fluid within the abdomen, moderate hiatal hernia and sigmoid diverticulosis. Blood cultures [address] and Zos[address] was ordered. Dr[address] elias was contacted and requested admission to the entry level receptionist with a consultation to him. He will see here at [facility]. She states she had surgery multiple years ago to remove benign tumors from her abdomen at [facility] in [place] and agrees to admit Currently, patient requesting morphine for pain management. Hemodynamic stable. On 3 L nasal cannula 01/08: Currently afebrile. Pain currently 4-10 management with IV morphine when necessary. Sharp stabbing such clotting. Note is 64% bandemia this a.m. Still considering surgery. Hemodynamically stable. 01/09: Episode of tachycardia overnight resolved. Very anxious at times when she states she can't breathe, possibly relating to DuoNeb therapy?. Adjusting medications see below. Pain currently 2 out of 10. Blood pressure low normal overnight. Decreased urine output noted. 01/10: Afebrile. Pain is well controlled. Currently on 4 L nasal cannula. Tolerating diet. Positive BM 1. Subjective 01/11: Afebrile. Pain is well controlled. Remains on 4 L nasal cannula. Tolerating diet. BM 1. Essentially stable past 48 hours 01/13 Reconsult for SVT. Haicat was called as patient was tachycardic with HR 150 -180's. EKG showed probable SVT with HR 180. She was given Lopressor 5mg IV x2, Adenosine 6mg IV x1, Cardizem 5mg and transferred to [facility]. Patient is on 5L oxygen. 01/14 SVT resolved,S/P receipt of digoxin and the patient continues on Cardizem infusion 5 mg/hour. We'll follow-up with cardiology regarding transitioning to by mouth digoxin, versus by mouth Cardizem.Dr. Sanderson consulted will F/U recommendations. Objective Vital Signs Date Time Temp Pulse Resp B/P Pulse Ox O2 Delivery O2 Flow Rate FiO2 01/14/17 09:00 93 Nasal Cannula 5.00 01/14/17 07:00 96 01/14/17 06:00 70 01/14/17 04:44 20 01/14/17 04:00 97.4 115/61 Intake and Output 01/13/17 01/13/17 01/14/17 08:00 16:00 00:00 Intake Total 1588 ml 484 ml 335 ml Output Total 650 ml Balance 1588 ml -166 ml 335 ml Result Diagram: 01/14/17 0342 01/14/17 0342 Imaging Last Impressions Chest X-Ray 01/12/17 0600 Signed Impressions: Service Date/Time: Thursday, January 12, 2017 05:57 - CONCLUSION: Stable bibasilar pulmonary infiltrates. Small left pleural effusion. Sebas Kirk MD Upper Extremity Ultrasound 01/12/17 0000 Signed Impressions: Service Date/Time: Thursday, January 12, 2017 22:55 - CONCLUSION: Normal examination. Bryan Lambert MD Abdomen X-Ray 01/09/17 0600 Signed Impressions: Service Date/Time: Monday, January 09, 2017 05:08 - CONCLUSION: Normal examination. Agusto Funes Jr., MD Abdomen/Pelvis CT 01/07/17 0553 Signed Impressions: Service Date/Time: Saturday, January 07, 2017 07:07 - CONCLUSION: 1. There is a small volume of free intraperitoneal air suggestive of perforated bowel. The site of perforation is not identified however. 2. There is also a small volume of free fluid in the abdomen and pelvis with associated peritoneal enhancement. Enhancement of the peritoneum is typically associated with infection, hemorrhage, or malignancy. 3. Nonacute findings include moderate size hiatal hernia, severe atherosclerotic disease, and sigmoid diverticulosis. These findings were discussed with Dr. Chiang via telephone. Joo Mc MD Objective Remarks GENERAL: Patient is lying in bed in no resp distress SKIN: Warm and dry. HEAD: Normocephalic. EYES: No scleral icterus. No injection or drainage. NECK: Supple, trachea midline. No JVD or lymphadenopathy. CARDIOVASCULAR: Tachycardic without murmurs, gallops, or rubs. RESPIRATORY: Breath sounds equal bilaterally. No accessory muscle use. GASTROINTESTINAL: Abdomen soft, non-tender, nondistended. MUSCULOSKELETAL: No cyanosis, or edema. Neuro: Awake and alert Date of Insertion: Jan 08, 2017 Line: Central Venous Catheter Side: Left Location: Internal, Jugular A/P Assessment and Plan Neuro/Psych: Awake and alet Acetaminophen for fever Golva/morphine for pain management Melatonin 5 mg when necessary for insomnia CV: SVT-resolved Mild elevated trop History of hypertension Atherosclerotic vascular disease NSTEMI Patient was given Lopressor , Adenosine and Cardizem on Halicat on 01/13 the patient continues on Lopressor 2.5mg IV Q6, and Cardizem 5 mg /hr infusion. The patient received did yesterday resolution of SVT Monitor HR and BP keep MAP>65mmHg. Lactic acid: 1.1 01/14 2D echo -ejection fraction 5055 percent, left pleural effusion, pulmonary artery pressure 49 mmhg Cardiology following-Dr. Bernard patient will be transitioned to PO antiarrhythmics, will follow-up cardiology recommendations Resp: COPD History of lung cancer status post left upper lobe lobectomy Continue with oxygen keep sat >92% Incentive spirometry while awake CXR 01/14-bibasilar infiltrates, small pleural effusion Bronchodilators scheduled every 6 hours Symbicort 2 puffs twice a day Solu-Medrol 40 IV daily GI: Free intraperitoneal air on CT abdomen 01/07 unclear etiology Hiatal hernia Sigmoid diverticulosis History of removal of 2 benign abdominal masses Low albumin 01/07 CT abdomen/pelvis revealed free intracranial air unknown source. Free fluid within the abdomen. Hiatal hernia and liver cyst and endoscopic vascular disease and sigmoid diverticulosis. Dr. Elias/surgery following Currently with conservative management On regular diet Protonix 40 mg twice a day for GI prophylaxis LFTs within normal limits. Bilirubin within normal limits. : Hypokalemia Monitor renal function, I/O's, electrolytes replacement per protocol. Endo: SSI if indicated to maintain euglycemia Heme: Macrocytosis Monitor CBC B12,TSH within normal limits. Folate low at 2.3. On folate 1 mg by mouth daily ID: Prevotella, Bacteroides bacteremia 01/07 Leukocytosis Thrush Received 1 dose of Zosyn at [facility]. . Previously treated with Cipro, Flagyl and Diflucan 3 days Continue with abx per ID ( On Zosyn and Flagyl) monitor for signs of infections ( Fever, WBC) WBC 14.5, will continue to monitor Swish and swallow Pertinent cultures Blood cultures 2 - 01/07 Prevotella species and Bacteroides Uniformis Recheck MSK: PT/OT evaluate and treat Access -Left IJ TLC placed 01/08 Prophylaxis - GI - Protonix twice a day - DVT - SCD/heparin subcutaneous Level 3 Physician Lenka Dalton MD Jan 14, 2017 09:43
--- NOTE | 2017-01-14 09:54 | HHI.PR ---
Subjective Subjective Remarks Hallicat called, HR up to 180s ? afib RVR vs SVT was given Cardizem bolus, then put on drip at 15/hr given Adenosine 6 mg IVP x 1, no effect given Lopressor 5 mg IV x 2, HR down to 140's HR 100s now, afib ? aflutter denies CP, min SOB no abd. pain no fever has not had cardiac problems in the past going to ICU at this time (Rocio Alcala) Review of Systems Constitutional Constitutional Remarks 12 point ROS completed, negative except as noted above (Rocio Alcala) Vitals/Results Intake & Output 01/13/17 01/13/17 01/14/17 15:00 23:00 07:00 Intake Total 484 ml 335 ml 200 ml Output Total 650 ml Balance -166 ml 335 ml 200 ml Intake Oral 240 ml 240 ml 60 ml IV Total 244 ml 95 ml 140 ml Output Urine Total 650 ml # Voids 2 2 # Bowel Movements 3 2 3 Vital Signs Vital Signs Date Time Temp Pulse Resp B/P Pulse Ox O2 Delivery O2 Flow Rate FiO2 01/14/17 09:00 93 Nasal Cannula 5.00 01/14/17 08:00 65 01/14/17 08:00 98.2 68 17 113/59 97 01/14/17 07:00 Nasal Cannula 4.00 96 01/14/17 06:00 70 01/14/17 04:44 20 01/14/17 04:00 97.4 72 20 115/61 95 01/14/17 04:00 72 01/14/17 02:00 76 01/14/17 00:00 97.8 81 18 109/59 91 01/14/17 00:00 81 01/13/17 22:00 81 01/13/17 20:01 94 Nasal Cannula 5.00 01/13/17 20:00 92 Nasal Cannula 4.00 01/13/17 20:00 77 01/13/17 20:00 98.1 77 20 108/55 92 01/13/17 18:00 71 01/13/17 16:00 98.1 71 25 96/52 97 01/13/17 16:00 70 01/13/17 14:00 156 01/13/17 12:00 98.5 153 22 104/76 94 01/13/17 12:00 153 01/13/17 10:00 146 (Rodrick Alcalarochelle [facility]) CBC/BMP: 01/14/17 0342 01/14/17 0342 Lab Results Laboratory Tests Test 01/13/17 01/13/17 01/13/17 01/13/17 10:30 13:42 14:30 19:26 White Blood Count 14.6 TH/MM3 Red Blood Count 3.50 MIL/MM3 Hemoglobin 12.8 GM/DL Hematocrit 37.6 % Mean Corpuscular Volume 107.2 FL Mean Corpuscular Hemoglobin 36.6 PG Mean Corpuscular Hemoglobin 34.1 % Concent Red Cell Distribution Width 15.1 % Platelet Count 239 TH/MM3 Mean Platelet Volume 8.1 FL Neutrophils (%) (Auto) 86.3 % Lymphocytes (%) (Auto) 5.2 % Monocytes (%) (Auto) 8.4 % Eosinophils (%) (Auto) 0.1 % Basophils (%) (Auto) 0.0 % Neutrophils # (Auto) 12.6 TH/MM3 Lymphocytes # (Auto) 0.8 TH/MM3 Monocytes # (Auto) 1.2 TH/MM3 Eosinophils # (Auto) 0.0 TH/MM3 Basophils # (Auto) 0.0 TH/MM3 CBC Comment AUTO DIFF Differential Total Cells 100 Counted Neutrophils % (Manual) 79 % Band Neutrophils % 8 % Lymphocytes % 4 % Monocytes % 9 % Neutrophils # (Manual) 12.7 TH/MM3 Differential Comment FINAL DIFF MANUAL Platelet Estimate NORMAL Platelet Morphology Comment NORMAL Red Cell Morphology Comment NORMAL Sodium Level 143 MEQ/L Potassium Level 3.5 MEQ/L Chloride Level 106 MEQ/L Carbon Dioxide Level 28.9 MEQ/L Anion Gap 8 MEQ/L Blood Urea Nitrogen 17 MG/DL Creatinine 0.38 MG/DL Estimat Glomerular Filtration 167 ML/MIN Rate Random Glucose 78 MG/DL Calcium Level 8.1 MG/DL Phosphorus Level 1.9 MG/DL 2.8 MG/DL Magnesium Level 1.5 MG/DL Total Bilirubin 0.4 MG/DL Aspartate Amino Transf 19 U/L (AST/SGOT) Alanine Aminotransferase 23 U/L (ALT/SGPT) Alkaline Phosphatase 43 U/L Total Creatine Kinase 90 U/L 86 U/L 70 U/L Troponin I 0.13 NG/ML 0.15 NG/ML 0.19 NG/ML B-Type Natriuretic Peptide 345 PG/ML Total Protein 4.2 GM/DL Albumin 2.2 GM/DL Thyroid Stimulating Hormone 2.800 uIU/ML 3rd Gen Stool C. difficile Toxin (PCR) NEGATIVE Stl C. difficile Toxin PRESUMPTIVE Epiderm 027 NEGATIVE Test 01/14/17 03:42 White Blood Count 15.9 TH/MM3 Red Blood Count 3.14 MIL/MM3 Hemoglobin 11.3 GM/DL Hematocrit 33.2 % Mean Corpuscular Volume 106.0 FL Mean Corpuscular Hemoglobin 36.1 PG Mean Corpuscular Hemoglobin 34.0 % Concent Red Cell Distribution Width 14.8 % Platelet Count 285 TH/MM3 Mean Platelet Volume 8.0 FL Neutrophils (%) (Auto) 88.3 % Lymphocytes (%) (Auto) 5.6 % Monocytes (%) (Auto) 5.9 % Eosinophils (%) (Auto) 0.1 % Basophils (%) (Auto) 0.1 % Neutrophils # (Auto) 14.1 TH/MM3 Lymphocytes # (Auto) 0.9 TH/MM3 Monocytes # (Auto) 0.9 TH/MM3 Eosinophils # (Auto) 0.0 TH/MM3 Basophils # (Auto) 0.0 TH/MM3 CBC Comment AUTO DIFF Differential Comment AUTO DIFF CONFIRMED Ovalocytes 1+ Sodium Level 142 MEQ/L Potassium Level 3.1 MEQ/L Chloride Level 104 MEQ/L Carbon Dioxide Level 32.0 MEQ/L Anion Gap 6 MEQ/L Blood Urea Nitrogen 14 MG/DL Creatinine 0.35 MG/DL Estimat Glomerular Filtration 184 ML/MIN Rate Random Glucose 88 MG/DL Calcium Level 8.2 MG/DL Phosphorus Level 2.4 MG/DL Magnesium Level 1.6 MG/DL Microbiology Microbiology 01/13/17 Aerobic Blood Culture, Received Pending 01/13/17 Anaerobic Blood Culture, Received Pending 01/13/17 Aerobic Blood Culture, Received Pending 01/13/17 Anaerobic Blood Culture, Received Pending (Rocio Alcala) Physical Exam General General Appearance: Well Developed, No Acute Distress, Comfortable (Rocio Alcala) Eyes Eye Exam: Pupils Equal, Pupils Reactive (Rocio Alcala) Ears & Nose Ears & Nose Exam: Nasal Mucosa Oark (Rocio Alcala) Throat Throat Exam: Oral Mucosa Oark & Moist (Gross,Rocio G. ASSISTANT PROFESSOR OF ANTHROPOLOGY) Neck Neck Exam: Neck Supple (Rocio Alcala) Pulmonary Resp Exam: Breath Sounds Equal, No Distress, Decreased Bases (Rocio Alcala ASSISTANT PROFESSOR OF ANTHROPOLOGY) Cardiology CV Exam: Good Perfusion, Arrhythmia, Tachycardia (Rocio Alcala ASSISTANT PROFESSOR OF ANTHROPOLOGY) Gastrointestinal/Abdomen GI Exam: Soft, Bowel Sounds Present, Non-Distended, Bowel Sounds Hypoactive GI Remarks minimally tender (Rocio Alcala ASSISTANT PROFESSOR OF ANTHROPOLOGY) Musculoskeletal MS Exam: Joints Intact (Rocio AlcalaP) Integumentary Skin Exam: Warm, Dry (Rocio Alcala ASSISTANT PROFESSOR OF ANTHROPOLOGY) Extremeties Extremities Exam: No Edema, Pedal Pulses Palpable (Rocio Alcala ASSISTANT PROFESSOR OF ANTHROPOLOGY) Neurologic Neuro Exam: Alert, Awake, Oriented, Speech Clear, Moving All Extremities, Hand Tube Winder Equal (Rocio AlcalaP) Psychiatric Psych Exam: Appropriate Responses (Rocio Alcala) VTE Prophylaxis VTE Prophylaxis Device: SCDs VTE Prophylaxis Meds: Heparin (Rocio AlcalaP) PUD Prophylasis PUD Prophylaxis: Protonix (Rocio Alcala) Assessment/Plan Problem List: (1) Sigmoid diverticulosis (2) Hiatal hernia (3) Macrocytosis without anemia (4) Acute respiratory insufficiency (5) Free intraperitoneal air (6) COPD exacerbation (7) History of lobectomy of lung (8) History of lung cancer (9) Tobacco abuse (10) probable pna (11) SVT vs afib RVR Assessment/Plan continue with present diet surgical input appreciated non surgical management for now IVF abx pain management resp. improving wean off IV steroids continue abx Duonebs left arm swelling, check US of left arm r/o DVT-negative 01/13-Afib RVR vs SVT, given Cardizem, Adenosine, Lopressor tx to ICU, CCM consult. D/W Dr. Tabares Serial cardiac enzymes, cardiology consult and 2D echo will check TSH, BMP, CBC, Mg monitor closely condition guarded Labs in am D/W RN D/W Dr. Garcia/Dr. Tabares D/ W pt This patient was seen by myself and Dr. Garcia, this note is written on his behalf. (Rocio Alcala) Assessment/Plan Pt seen and examined as above meds reviwed labs reviewed previous notes reviewed [facility] input emilee crews about plan of care dw pt and son at bedside dw rn agree with above plan of care (Talon Garcia MD) Rocio Alcala Jan 14, 2017 09:53 Talon Garcia MD Jan 14, 2017 20:51
--- NOTE | 2017-01-14 10:23 | PD.CARD.PN ---
Subjective Subjective Remarks alert in nad Objective Vital Signs / I&O Vital Signs Date Time Temp Pulse Resp B/P Pulse Ox O2 Delivery O2 Flow Rate FiO2 01/14/17 10:00 72 01/14/17 09:00 93 Nasal Cannula 5.00 01/14/17 08:00 65 01/14/17 08:00 98.2 68 17 113/59 97 01/14/17 07:00 Nasal Cannula 4.00 96 01/14/17 06:00 70 01/14/17 04:44 20 01/14/17 04:00 97.4 72 20 115/61 95 01/14/17 04:00 72 01/14/17 02:00 76 01/14/17 00:00 97.8 81 18 109/59 91 01/14/17 00:00 81 01/13/17 22:00 81 01/13/17 20:01 94 Nasal Cannula 5.00 01/13/17 20:00 92 Nasal Cannula 4.00 01/13/17 20:00 77 01/13/17 20:00 98.1 77 20 108/55 92 01/13/17 18:00 71 01/13/17 16:00 98.1 71 25 96/52 97 01/13/17 16:00 70 01/13/17 14:00 156 01/13/17 12:00 98.5 153 22 104/76 94 01/13/17 12:00 153 I/O 01/13/17 01/13/17 01/13/17 01/14/17 01/14/17 01/14/17 07:00 15:00 23:00 07:00 15:00 23:00 Intake Total 1588 ml 484 ml 335 ml 200 ml Output Total 650 ml Balance 1588 ml -166 ml 335 ml 200 ml Intake Oral 240 ml 240 ml 60 ml IV Total 1588 ml 244 ml 95 ml 140 ml Output Urine Total 650 ml # Voids 3 2 2 # Bowel Movements 3 3 2 3 Physical Exam GENERAL: SKIN: Warm and dry. HEAD: Normocephalic. EYES: No scleral icterus. No injection or drainage. NECK: Supple, trachea midline. No JVD or lymphadenopathy. CARDIOVASCULAR: Regular rate and rhythm without murmurs, gallops, or rubs. RESPIRATORY: Breath sounds equal bilaterally. No accessory muscle use. GASTROINTESTINAL: Abdomen soft, non-tender, nondistended. MUSCULOSKELETAL: No cyanosis, or edema. BACK: Nontender without obvious deformity. No CVA tenderness. Laboratory Laboratory Tests Test 01/13/17 01/13/17 01/13/17 01/13/17 10:30 13:42 14:30 19:26 White Blood Count 14.6 TH/MM3 Red Blood Count 3.50 MIL/MM3 Hemoglobin 12.8 GM/DL Hematocrit 37.6 % Mean Corpuscular Volume 107.2 FL Mean Corpuscular Hemoglobin 36.6 PG Mean Corpuscular Hemoglobin 34.1 % Concent Red Cell Distribution Width 15.1 % Platelet Count 239 TH/MM3 Mean Platelet Volume 8.1 FL Neutrophils (%) (Auto) 86.3 % Lymphocytes (%) (Auto) 5.2 % Monocytes (%) (Auto) 8.4 % Eosinophils (%) (Auto) 0.1 % Basophils (%) (Auto) 0.0 % Neutrophils # (Auto) 12.6 TH/MM3 Lymphocytes # (Auto) 0.8 TH/MM3 Monocytes # (Auto) 1.2 TH/MM3 Eosinophils # (Auto) 0.0 TH/MM3 Basophils # (Auto) 0.0 TH/MM3 CBC Comment AUTO DIFF Differential Total Cells 100 Counted Neutrophils % (Manual) 79 % Band Neutrophils % 8 % Lymphocytes % 4 % Monocytes % 9 % Neutrophils # (Manual) 12.7 TH/MM3 Differential Comment FINAL DIFF MANUAL Platelet Estimate NORMAL Platelet Morphology Comment NORMAL Red Cell Morphology Comment NORMAL Sodium Level 143 MEQ/L Potassium Level 3.5 MEQ/L Chloride Level 106 MEQ/L Carbon Dioxide Level 28.9 MEQ/L Anion Gap 8 MEQ/L Blood Urea Nitrogen 17 MG/DL Creatinine 0.38 MG/DL Estimat Glomerular Filtration 167 ML/MIN Rate Random Glucose 78 MG/DL Calcium Level 8.1 MG/DL Phosphorus Level 1.9 MG/DL 2.8 MG/DL Magnesium Level 1.5 MG/DL Total Bilirubin 0.4 MG/DL Aspartate Amino Transf 19 U/L (AST/SGOT) Alanine Aminotransferase 23 U/L (ALT/SGPT) Alkaline Phosphatase 43 U/L Total Creatine Kinase 90 U/L 86 U/L 70 U/L Troponin I 0.13 NG/ML 0.15 NG/ML 0.19 NG/ML B-Type Natriuretic Peptide 345 PG/ML Total Protein 4.2 GM/DL Albumin 2.2 GM/DL Thyroid Stimulating Hormone 2.800 uIU/ML 3rd Gen Stool C. difficile Toxin (PCR) NEGATIVE Stl C. difficile Toxin PRESUMPTIVE Epiderm 027 NEGATIVE Test 01/14/17 03:42 White Blood Count 15.9 TH/MM3 Red Blood Count 3.14 MIL/MM3 Hemoglobin 11.3 GM/DL Hematocrit 33.2 % Mean Corpuscular Volume 106.0 FL Mean Corpuscular Hemoglobin 36.1 PG Mean Corpuscular Hemoglobin 34.0 % Concent Red Cell Distribution Width 14.8 % Platelet Count 285 TH/MM3 Mean Platelet Volume 8.0 FL Neutrophils (%) (Auto) 88.3 % Lymphocytes (%) (Auto) 5.6 % Monocytes (%) (Auto) 5.9 % Eosinophils (%) (Auto) 0.1 % Basophils (%) (Auto) 0.1 % Neutrophils # (Auto) 14.1 TH/MM3 Lymphocytes # (Auto) 0.9 TH/MM3 Monocytes # (Auto) 0.9 TH/MM3 Eosinophils # (Auto) 0.0 TH/MM3 Basophils # (Auto) 0.0 TH/MM3 CBC Comment AUTO DIFF Differential Comment AUTO DIFF CONFIRMED Ovalocytes 1+ Sodium Level 142 MEQ/L Potassium Level 3.1 MEQ/L Chloride Level 104 MEQ/L Carbon Dioxide Level 32.0 MEQ/L Anion Gap 6 MEQ/L Blood Urea Nitrogen 14 MG/DL Creatinine 0.35 MG/DL Estimat Glomerular Filtration 184 ML/MIN Rate Random Glucose 88 MG/DL Calcium Level 8.2 MG/DL Phosphorus Level 2.4 MG/DL Magnesium Level 1.6 MG/DL Assessment and Plan Problem List: (1) Acute respiratory insufficiency (2) COPD exacerbation (3) Tobacco abuse (4) History of lung cancer (5) SVT vs afib RVR (6) Free intraperitoneal air (7) History of lobectomy of lung Assessment and Plan 1.) SVT - converted to nsr after dig, continue tele, iv cardizem due to npo Erick Bernard MD Jan 14, 2017 10:23
[2017-01-14] MEDS: NYSTATIN SUSP 500,000 U/5 ML CUP SWISH-SWAL SCH ×3 (13:16→20:28)
--- NOTE | 2017-01-14 13:52 | HHI.IDPN ---
Subjective Subjective Remarks cont to have diarrhea 5- 8 BMs/d; .diff negative co abd pain tolerating PO, though intake is very low Antibiotics zosyn Allergies: Coded Allergies: Azithromycin (Verified Allergy, Severe, Anaphylaxis, 01/07/17) Objective . Vital Signs Date Time Temp Pulse Resp B/P Pulse Ox O2 Delivery O2 Flow Rate FiO2 01/14/17 12:00 82 01/14/17 10:00 72 01/14/17 09:00 93 Nasal Cannula 5.00 01/14/17 08:00 65 01/14/17 08:00 98.2 68 17 113/59 97 01/14/17 07:00 Nasal Cannula 4.00 96 01/14/17 06:00 70 01/14/17 04:44 20 01/14/17 04:00 97.4 72 20 115/61 95 01/14/17 04:00 72 01/14/17 02:00 76 01/14/17 00:00 97.8 81 18 109/59 91 01/14/17 00:00 81 01/13/17 22:00 81 01/13/17 20:01 94 Nasal Cannula 5.00 01/13/17 20:00 92 Nasal Cannula 4.00 01/13/17 20:00 77 01/13/17 20:00 98.1 77 20 108/55 92 01/13/17 18:00 71 01/13/17 16:00 98.1 71 25 96/52 97 01/13/17 16:00 70 01/13/17 14:00 156 01/13/17 01/13/17 01/14/17 15:00 23:00 07:00 Intake Total 484 ml 335 ml 200 ml Output Total 650 ml Balance -166 ml 335 ml 200 ml Intake Oral 240 ml 240 ml 60 ml IV Total 244 ml 95 ml 140 ml Output Urine Total 650 ml # Voids 2 2 # Bowel Movements 3 2 3 . Laboratory Tests Test 01/13/17 01/14/17 10:30 03:42 White Blood Count 14.6 TH/MM3 15.9 TH/MM3 Red Blood Count 3.50 MIL/MM3 3.14 MIL/MM3 Hemoglobin 12.8 GM/DL 11.3 GM/DL Hematocrit 37.6 % 33.2 % Mean Corpuscular Volume 107.2 FL 106.0 FL Mean Corpuscular Hemoglobin 36.6 PG 36.1 PG Mean Corpuscular Hemoglobin 34.1 % 34.0 % Concent Red Cell Distribution Width 15.1 % 14.8 % Platelet Count 239 TH/MM3 285 TH/MM3 Mean Platelet Volume 8.1 FL 8.0 FL Neutrophils (%) (Auto) 86.3 % 88.3 % Lymphocytes (%) (Auto) 5.2 % 5.6 % Monocytes (%) (Auto) 8.4 % 5.9 % Eosinophils (%) (Auto) 0.1 % 0.1 % Basophils (%) (Auto) 0.0 % 0.1 % Neutrophils # (Auto) 12.6 TH/MM3 14.1 TH/MM3 Lymphocytes # (Auto) 0.8 TH/MM3 0.9 TH/MM3 Monocytes # (Auto) 1.2 TH/MM3 0.9 TH/MM3 Eosinophils # (Auto) 0.0 TH/MM3 0.0 TH/MM3 Basophils # (Auto) 0.0 TH/MM3 0.0 TH/MM3 CBC Comment AUTO DIFF AUTO DIFF Differential Total Cells 100 Counted Neutrophils % (Manual) 79 % Band Neutrophils % 8 % Lymphocytes % 4 % Monocytes % 9 % Neutrophils # (Manual) 12.7 TH/MM3 Differential Comment FINAL DIFF AUTO DIFF MANUAL CONFIRMED Platelet Estimate NORMAL Platelet Morphology Comment NORMAL Red Cell Morphology Comment NORMAL Ovalocytes 1+ Laboratory Tests Test 01/13/17 01/13/17 01/13/17 01/14/17 10:30 13:42 19:26 03:42 Sodium Level 143 MEQ/L 142 MEQ/L Potassium Level 3.5 MEQ/L 3.1 MEQ/L Chloride Level 106 MEQ/L 104 MEQ/L Carbon Dioxide Level 28.9 MEQ/L 32.0 MEQ/L Anion Gap 8 MEQ/L 6 MEQ/L Blood Urea Nitrogen 17 MG/DL 14 MG/DL Creatinine 0.38 MG/DL 0.35 MG/DL Estimat Glomerular Filtration 167 ML/MIN 184 ML/MIN Rate Random Glucose 78 MG/DL 88 MG/DL Calcium Level 8.1 MG/DL 8.2 MG/DL Phosphorus Level 1.9 MG/DL 2.8 MG/DL 2.4 MG/DL Magnesium Level 1.5 MG/DL 1.6 MG/DL Total Bilirubin 0.4 MG/DL Aspartate Amino Transf 19 U/L (AST/SGOT) Alanine Aminotransferase 23 U/L (ALT/SGPT) Alkaline Phosphatase 43 U/L Total Creatine Kinase 90 U/L 86 U/L 70 U/L Troponin I 0.13 NG/ML 0.15 NG/ML 0.19 NG/ML B-Type Natriuretic Peptide 345 PG/ML Total Protein 4.2 GM/DL Albumin 2.2 GM/DL Thyroid Stimulating Hormone 2.800 uIU/ML 3rd Gen Microbiology Date/Time Procedure Status Source Growth 01/13/17 10:50 Aerobic Blood Culture - Preliminary Resulted Blood Peripheral NO GROWTH IN 1 DAY 01/13/17 10:50 Anaerobic Blood Culture - Preliminary Resulted Blood Peripheral NO GROWTH IN 1 DAY 01/13/17 10:52 Aerobic Blood Culture - Preliminary Resulted Blood Peripheral NO GROWTH IN 1 DAY 01/13/17 10:52 Anaerobic Blood Culture - Preliminary Resulted Blood Peripheral NO GROWTH IN 1 DAY Imaging Last Impressions Chest X-Ray 01/13/17 0000 Signed Impressions: Service Date/Time: Friday, January 13, 2017 12:20 - CONCLUSION: No significant change with persistent bilateral lower lung zone pulmonary parenchymal opacity suggesting pulmonary edema and bilateral pleural effusions. Alex Rivers MD Upper Extremity Ultrasound 01/12/17 0000 Signed Impressions: Service Date/Time: Thursday, January 12, 2017 22:55 - CONCLUSION: Normal examination. Bryan Lambert MD Abdomen X-Ray 01/09/17 0600 Signed Impressions: Service Date/Time: Monday, January 09, 2017 05:08 - CONCLUSION: Normal examination. Agusto Funes Jr., MD Abdomen/Pelvis CT 01/07/17 0553 Signed Impressions: Service Date/Time: Saturday, January 07, 2017 07:07 - CONCLUSION: 1. There is a small volume of free intraperitoneal air suggestive of perforated bowel. The site of perforation is not identified however. 2. There is also a small volume of free fluid in the abdomen and pelvis with associated peritoneal enhancement. Enhancement of the peritoneum is typically associated with infection, hemorrhage, or malignancy. 3. Nonacute findings include moderate size hiatal hernia, severe atherosclerotic disease, and sigmoid diverticulosis. These findings were discussed with Dr. Chiang via telephone. Joo Mc MD Physical Exam CONSTITUTIONAL/GENERAL: This is a thin frail elderly patient, in no apparent distress. TUBES/LINES/DRAINS: SKIN: No jaundice, rashes, or lesions EYES: No scleral icterus. CARDIOVASCULAR: Regular rate and rhythm without murmurs, gallops, or rubs. No JVD. Peripheral pulses symmetric. RESPIRATORY/CHEST: Symmetric, unlabored respirations. Clear to auscultation. Breath sounds very diminished bilaterally. GASTROINTESTINAL: Abdomen soft, scapjhoid non-tender, not distended. No hepato -splenomegaly, or palpable masses. No guarding. Bowel sounds present. MUSCULOSKELETAL: Extremities without clubbing, cyanosis, or edema. No mottling NEUROLOGICAL: Awake and alert. NON FOCAL. PSYCHIATRIC: No obvious anxiety/depression. no apparent hallucinations or other psychotic thought process. Assessment & Plan Remarks sp viscus perforation, tolerating non-op treatment Anaerobic sepsis - likely 2/2 viscus perf: prevotella, bacteroides Diarrea, abx associated, C.diff negative Unstabel 2/2 AVR Afib, no e/o ongoing sepsis physiology Leukocytosis - are ? sterroids contributing ? cont zosyn - if cont to have abd candace nad/or leukocytosis/fever will get CT A/P to eval for possible abscess dw RN son @ [facility] Jane MD Jan 14, 2017 13:52
[2017-01-14] MEDS: DILTIAZEM 125 MG/NS 100 ML IV SCH ×2 (22:32)
[2017-01-15] VITALS (13 sets, daily range): BP systolic 112–125; BP diastolic 58–68; PULSE 55–87; RESP 22–25; TEMP 97.6–99; O2SAT 89–99
[2017-01-15] MEDS: METOPROLOL TARTRATE 5 MG/5 ML VIAL IV PUSH SCH ×2 (04:39→10:00)
[2017-01-15] MEDS: ALBUTEROL SULFATE 90 MCG/ACT HFA 8 GM INHALER INH SCH ×6 (04:39→23:45)
[2017-01-15 05:29] LABS: HEMATOCRIT 31.7 % (35.0-46.0); MEAN CELL VOLUME 106.8 FL (80.0-100.0); MEAN CORPUSCULAR HEMOGLOBIN 36.4 PG (27.0-34.0); PLATELET COUNT 360 TH/MM3 (150-450); RED BLOOD COUNT 2.97 MIL/MM3 (4.00-5.30); RED CELL DISTRIBUTION WIDTH 15.4 % (11.6-17.2); REVIEW FLAG FINAL; WHITE BLOOD COUNT 14.1 TH/MM3 (4.0-11.0)
[2017-01-15 05:49] LABS: BICARBONATE 33.4 MEQ/L (21.0-32.0); MAGNESIUM 1.7 MG/DL (1.5-2.5); POTASSIUM 3.9 MEQ/L (3.5-5.1)
[2017-01-15] MEDS: PIPERACIL-TAZO 3.375 GM PREMIX 50 ML IV SCH ×4 (06:28→23:46)
[2017-01-15] MEDS: INSULIN NovoLIN REGULAR SUPPLEMENTAL SCALE SQ SCH ×4 (06:29→20:47)
[2017-01-15] MEDS: SODIUM CHLORIDE 0.9% FLUSH 5 ML FLUSH IV FLUSH SCH ×2 (09:00→20:28)
[2017-01-15] MEDS: BUDESONIDE-FORMOTEROL 160/4.5 MCG INHALER INH SCH ×2 (09:00→20:28)
[2017-01-15] MEDS: UMECLIDINIUM 62.5 MCG/VILANTEROL 25 MCG INHALER INH SCH (09:14)
[2017-01-15] MEDS: SODIUM CHLORIDE 0.9% FLUSH 10 ML FLUSH IVF SCH (09:16)
[2017-01-15] MEDS: methylPREDNISolone SOD SUCC 40 MG/1 ML VIAL IV PUSH SCH (09:17)
[2017-01-15] MEDS: NYSTATIN SUSP 500,000 U/5 ML CUP SWISH-SWAL SCH ×4 (09:17→20:28)
[2017-01-15] MEDS: DOCUSATE SODIUM 50 MG/SENNA 8.6 MG TAB PO SCH (09:19)
[2017-01-15] MEDS: FOLIC ACID 1 MG TAB PO SCH (09:19)
[2017-01-15] MEDS: HEPARIN SODIUM - SQ 10,000 UNITS/ML VIAL SQ SCH ×2 (09:19→20:29)
[2017-01-15] MEDS: PANTOPRAZOLE SOD 40 MG DELAYED RELEASE TAB PO SCH ×2 (09:19→20:28)
--- NOTE | 2017-01-15 10:29 | HHI.CCPN ---
Subjective Remarks/Hospital Course 71-year-old female. Date of admission 01/07/2017. Past medical history includes COPD not on supplemental oxygen at home, 60 years tobaccoism, history of left upper lobe lobectomy secondary to cancer [facility] and hypertension. She presents to the [place] ED with acute onset at 9 PM last night of abdominal pain. 10 out of 10. Sharp and stabbing without relief.I associated with nausea and vomiting. She states he's had abdominal pain "off and on" for the past month without relief. She states that she had an appointment with her primary on January 19 but could not wait until then. She was given Solu-Medrol 125 mg IV 1 and a DuoNeb treatment and placed on [address] scan abdomen pelvis reveals free peritoneal air without, free fluid within the abdomen, moderate hiatal hernia and sigmoid diverticulosis. Blood cultures [address] and Zos[address] was ordered[address] Dr[address] elias was contacted and requested admission to the fitness center attendant with a consultation to him. He will see here at [facility]. She states she had surgery multiple years ago to remove benign tumors from her abdomen at [facility] in [place] and agrees to admit Currently, patient requesting morphine for pain management. Hemodynamic stable. On 3 L nasal cannula 01/08: Currently afebrile. Pain currently 4-10 management with IV morphine when necessary. Sharp stabbing such clotting. Note is 64% bandemia this a.m. Still considering surgery. Hemodynamically stable. 01/09: Episode of tachycardia overnight resolved. Very anxious at times when she states she can't breathe, possibly relating to DuoNeb therapy?. Adjusting medications see below. Pain currently 2 out of 10. Blood pressure low normal overnight. Decreased urine output noted. 01/10: Afebrile. Pain is well controlled. Currently on 4 L nasal cannula. Tolerating diet. Positive BM 1. Subjective 01/11: Afebrile. Pain is well controlled. Remains on 4 L nasal cannula. Tolerating diet. BM 1. Essentially stable past 48 hours 01/13 Reconsult for SVT. Haicat was called as patient was tachycardic with HR 150 -180's. EKG showed probable SVT with HR 180. She was given Lopressor 5mg IV x2, Adenosine 6mg IV x1, Cardizem 5mg and transferred to [facility]. Patient is on 5L oxygen. 01/14 SVT resolved,S/P receipt of digoxin and the patient continues on Cardizem infusion 5 mg/hour. We'll follow-up with cardiology regarding transitioning to by mouth digoxin, versus by mouth Cardizem.Dr. Sanderson consulted will F/U recommendations. 01/15: still in NSR. doing well. tolerating diet. still on cardizem drip at 5 mg/ hr. Objective Vital Signs Date Time Temp Pulse Resp B/P Pulse Ox O2 Delivery O2 Flow Rate FiO2 01/15/17 06:00 68 01/15/17 04:00 97.7 24 112/58 94 01/14/17 20:00 Nasal Cannula 5.00 01/14/17 07:00 96 Intake and Output 01/14/17 01/14/17 01/15/17 08:00 16:00 00:00 Intake Total 200 ml 616 ml 275 ml Output Total 650 ml Balance 200 ml -34 ml 275 ml Result Diagram: 01/15/17 0415 01/15/17 0415 Imaging Last Impressions Chest X-Ray 01/12/17 06 Signed Impressions: Service Date/Time: Thursday, January 12, 2017 05:57 - CONCLUSION: Stable bibasilar pulmonary infiltrates. Small left pleural effusion. Sebas Kirk MD Upper Extremity Ultrasound 01/12/17 0000 Signed Impressions: Service Date/Time: Thursday, January 12, 2017 22:55 - CONCLUSION: Normal examination. Bryan Lambert MD Abdomen X-Ray 01/09/17 06 Signed Impressions: Service Date/Time: Monday, January 09, 2017 05:08 - CONCLUSION: Normal examination. Agusto Funes Jr., MD Abdomen/Pelvis CT 01/07/17 0553 Signed Impressions: Service Date/Time: Saturday, January 07, 2017 07:07 - CONCLUSION: 1. There is a small volume of free intraperitoneal air suggestive of perforated bowel. The site of perforation is not identified however. 2. There is also a small volume of free fluid in the abdomen and pelvis with associated peritoneal enhancement. Enhancement of the peritoneum is typically associated with infection, hemorrhage, or malignancy. 3. Nonacute findings include moderate size hiatal hernia, severe atherosclerotic disease, and sigmoid diverticulosis. These findings were discussed with Dr. Chiang via telephone. Joo Mc MD Objective Remarks GENERAL: Patient is lying in bed in no resp distress SKIN: Warm and dry. HEAD: Normocephalic. EYES: No scleral icterus. No injection or drainage. NECK: trachea midline. No JVD CARDIOVASCULAR: normal rate, regular rhythm. without murmurs, gallops, or rubs. RESPIRATORY: Breath sounds equal bilaterally. No accessory muscle use. GASTROINTESTINAL: Abdomen soft, non-tender, nondistended. MUSCULOSKELETAL: No cyanosis, or edema. Neuro: Awake and alert Date of Insertion: Jan 08, 2017 Line: Central Venous Catheter Side: Left Location: Internal, Jugular A/P Assessment and Plan Neuro/Psych: Awake and alet Acetaminophen for fever [place]/morphine for pain management Melatonin 5 mg when necessary for insomnia CV: SVT-resolved Mild elevated trop History of hypertension Atherosclerotic vascular disease NSTEMI Patient was given Lopressor , Adenosine and Cardizem on Halicat on 01/13 the patient continues on Lopressor 2.5mg IV Q6, and Cardizem 5 mg /hr infusion. The patient received did yesterday resolution of SVT Monitor HR and BP keep MAP>65mmHg. Lactic acid: 1.1 01/14 2D echo -ejection fraction 5055 percent, left pleural effusion, pulmonary artery pressure 49 mmhg Cardiology following-Dr. Bernard patient will be transitioned to PO antiarrhythmics, will follow-up cardiology recommendations start po cardizem 30mg q6h start metoprolol 25mg po q8h stop cardizem drip. Resp: COPD History of lung cancer status post left upper lobe lobectomy Continue with oxygen keep sat >92% Incentive spirometry while awake CXR 01/14-bibasilar infiltrates, small pleural effusion Bronchodilators scheduled every 6 hours Symbicort 2 puffs twice a day d/c solumedrol. start prednisone taper. OOB with assist. pt consult GI: Free intraperitoneal air on CT abdomen 01/07 unclear etiology Hiatal hernia Sigmoid diverticulosis History of removal of 2 benign abdominal masses Low albumin 01/07 CT abdomen/pelvis revealed free intracranial air unknown source. Free fluid within the abdomen. Hiatal hernia and liver cyst and endoscopic vascular disease and sigmoid diverticulosis. Dr. Elias/surgery following Currently with conservative management On regular diet Protonix 40 mg twice a day for GI prophylaxis LFTs within normal limits. Bilirubin within normal limits. : Hypokalemia Monitor renal function, I/O's, electrolytes replacement per protocol. Endo: SSI if indicated to maintain euglycemia Heme: Macrocytosis Monitor CBC B12,TSH within normal limits. Folate low at 2.3. On folate 1 mg by mouth daily ID: Prevotella, Bacteroides bacteremia 01/07 Leukocytosis Thrush Received 1 dose of Zosyn at [facility]. . Previously treated with Cipro, Flagyl and Diflucan 3 days Continue with abx per ID ( On Zosyn) monitor for signs of infections ( Fever, WBC) WBC 14.5, will continue to monitor Swish and swallow Pertinent cultures Blood cultures 2 - 01/07 Prevotella species and Bacteroides Uniformis Recheck MSK: PT/OT evaluate and treat Access -Left IJ TLC placed 01/08- will remove today. obtain 2 piv. Prophylaxis - GI - Protonix twice a day - DVT - SCD/heparin subcutaneous dispo: transfer to floor with telemetry. hospitalist consult.= Jaime Singleton MD Jan 15, 2017 10:29
[2017-01-15] MEDS: DILTIAZEM HCL 30 MG TAB PO SCH ×4 (11:04→23:46)
[2017-01-15] MEDS: METOPROLOL TARTRATE 25 MG TAB PO SCH ×3 (11:04→20:28)
--- NOTE | 2017-01-15 11:04 | HHI.PR ---
Subjective Interval History denies CP, no SOB no abd. pain no fever As few loose diarrhea Review of systems a 10 point system otherwise unremarkable Vitals/Results Intake & Output 01/14/17 01/14/17 01/15/17 15:00 23:00 07:00 Intake Total 616 ml 275 ml 160 ml Output Total 650 ml Balance -34 ml 275 ml 160 ml Intake Oral 360 ml 240 ml 60 ml IV Total 256 ml 35 ml 100 ml Output Urine Total 650 ml # Voids 1 4 # Bowel Movements 3 1 4 Vital Signs Vital Signs Date Time Temp Pulse Resp B/P Pulse Ox O2 Delivery O2 Flow Rate FiO2 01/15/17 06:00 68 01/15/17 04:00 97.7 70 24 112/58 94 01/15/17 04:00 70 01/15/17 02:00 72 01/15/17 00:00 97.6 74 22 119/58 94 01/15/17 00:00 74 01/14/17 22:00 75 01/14/17 20:00 79 01/14/17 20:00 99 Nasal Cannula 5.00 01/14/17 20:00 98.1 79 22 117/58 99 01/14/17 18:00 85 01/14/17 16:00 80 01/14/17 16:00 98.5 80 23 120/59 98 01/14/17 14:00 80 01/14/17 12:00 98.0 82 23 117/58 93 01/14/17 12:00 82 CBC/BMP: 01/15/17 0415 01/15/17 0415 Lab Results Laboratory Tests Test 01/14/17 01/15/17 16:30 04:15 Potassium Level 4.3 MEQ/L 3.9 MEQ/L White Blood Count 14.1 TH/MM3 Red Blood Count 2.97 MIL/MM3 Hemoglobin 10.8 GM/DL Hematocrit 31.7 % Mean Corpuscular Volume 106.8 FL Mean Corpuscular Hemoglobin 36.4 PG Mean Corpuscular Hemoglobin 34.0 % Concent Red Cell Distribution Width 15.4 % Platelet Count 360 TH/MM3 Mean Platelet Volume 7.8 FL Sodium Level 143 MEQ/L Chloride Level 105 MEQ/L Carbon Dioxide Level 33.4 MEQ/L Anion Gap 5 MEQ/L Blood Urea Nitrogen 11 MG/DL Creatinine 0.30 MG/DL Estimat Glomerular Filtration 220 ML/MIN Rate Random Glucose 95 MG/DL Calcium Level 8.5 MG/DL Phosphorus Level 2.8 MG/DL Magnesium Level 1.7 MG/DL Physical Exam General General Appearance: Well Developed, No Acute Distress, Comfortable Eyes Eye Exam: Pupils Equal, Pupils Reactive Ears & Nose Ears & Nose Exam: Nasal Mucosa [place] Throat Throat Exam: Oral Mucosa [place] & Moist Neck Neck Exam: Neck Supple Pulmonary Resp Exam: Breath Sounds Equal, No Distress, Decreased Bases Cardiology CV Exam: Good Perfusion, Tachycardia Gastrointestinal/Abdomen GI Exam: Soft, Bowel Sounds Present, Non-Distended, Bowel Sounds Hypoactive Musculoskeletal MS Exam: Joints Intact Integumentary Skin Exam: Warm, Dry Extremeties Extremities Exam: No Edema, Pedal Pulses Palpable Neurologic Neuro Exam: Alert, Awake, Oriented, Speech Clear, Moving All Extremities, Clinical Assessment Manager Equal Psychiatric Psych Exam: Appropriate Responses VTE Prophylaxis VTE Prophylaxis Device: SCDs VTE Prophylaxis Meds: Heparin PUD Prophylasis PUD Prophylaxis: Protonix Assessment/Plan Problem List: (1) Sigmoid diverticulosis (2) Hiatal hernia (3) Macrocytosis without anemia (4) Acute respiratory insufficiency (5) Free intraperitoneal air (6) COPD exacerbation (7) History of lobectomy of lung (8) History of lung cancer (9) Tobacco abuse (10) probable pna (11) SVT vs afib RVR Assessment/Plan continue with present diet surgical input appreciated non surgical management for now IVF abx pain management resp. improving wean off steroids continue abx Duonebs left arm swelling, check US of left arm r/o DVT-negative 01/13-Afib RVR vs SVT, given Cardizem, Adenosine, Lopressor. Patient is off of IV Cardizem now on by mouth Cardizem and Lopressor controlled rate tx to ICU, CCM input. D/W Dr. Funes Serial cardiac enzymes, cardiology consult appreciated and 2D echo report reviewed EF 55% and severe TR Within normal TSH, Increase activity Stable enough to transfer out of the unit as discussed with Dr. Funes Labs reviewed Stable H&H improving WBC count Plan for CBC in the morning Discussed with patient and son at bedside Discussed with Talon Courtney MD Jan 15, 2017 11:04
[2017-01-15] MEDS: NYSTAT/DIPHENHY/LIDO MOUTHWASH (Adult) 120ML SWISH-SWAL SCH ×3 (13:32→20:29)
--- NOTE | 2017-01-15 15:08 | PD.CARD.PN ---
Subjective Subjective Remarks alert in nad Objective Vital Signs / I&O Vital Signs Date Time Temp Pulse Resp B/P Pulse Ox O2 Delivery O2 Flow Rate FiO2 01/15/17 14:00 55 01/15/17 12:00 98.1 67 22 120/64 94 01/15/17 12:00 55 01/15/17 10:16 94 Nasal Cannula 4.00 01/15/17 10:00 63 01/15/17 08:00 57 01/15/17 08:00 99.0 71 22 125/61 99 01/15/17 07:00 97 Nasal Cannula 4.00 96 01/15/17 06:00 68 01/15/17 04:00 97.7 70 24 112/58 94 01/15/17 04:00 70 01/15/17 02:00 72 01/15/17 00:00 97.6 74 22 119/58 94 01/15/17 00:00 74 01/14/17 22:00 75 01/14/17 20:00 79 01/14/17 20:00 99 Nasal Cannula 5.00 01/14/17 20:00 98.1 79 22 117/58 99 01/14/17 18:00 85 01/14/17 16:00 80 01/14/17 16:00 98.5 80 23 120/59 98 I/O 01/14/17 01/14/17 01/14/17 01/15/17 01/15/17 01/15/17 07:00 15:00 23:00 07:00 15:00 23:00 Intake Total 200 ml 616 ml 275 ml 160 ml 170 ml Output Total 650 ml Balance 200 ml -34 ml 275 ml 160 ml 170 ml Intake Oral 60 ml 360 ml 240 ml 60 ml 120 ml IV Total 140 ml 256 ml 35 ml 100 ml 50 ml Output Urine Total 650 ml # Voids 2 1 4 6 # Bowel Movements 3 3 1 4 6 Physical Exam GENERAL: SKIN: Warm and dry. HEAD: Normocephalic. EYES: No scleral icterus. No injection or drainage. NECK: Supple, trachea midline. No JVD or lymphadenopathy. CARDIOVASCULAR: Regular rate and rhythm without murmurs, gallops, or rubs. RESPIRATORY: Breath sounds equal bilaterally. No accessory muscle use. GASTROINTESTINAL: Abdomen soft, non-tender, nondistended. MUSCULOSKELETAL: No cyanosis, or edema. BACK: Nontender without obvious deformity. No CVA tenderness. Laboratory Laboratory Tests Test 01/14/17 01/15/17 16:30 04:15 Potassium Level 4.3 MEQ/L 3.9 MEQ/L White Blood Count 14.1 TH/MM3 Red Blood Count 2.97 MIL/MM3 Hemoglobin 10.8 GM/DL Hematocrit 31.7 % Mean Corpuscular Volume 106.8 FL Mean Corpuscular Hemoglobin 36.4 PG Mean Corpuscular Hemoglobin 34.0 % Concent Red Cell Distribution Width 15.4 % Platelet Count 360 TH/MM3 Mean Platelet Volume 7.8 FL Sodium Level 143 MEQ/L Chloride Level 105 MEQ/L Carbon Dioxide Level 33.4 MEQ/L Anion Gap 5 MEQ/L Blood Urea Nitrogen 11 MG/DL Creatinine 0.30 MG/DL Estimat Glomerular Filtration 220 ML/MIN Rate Random Glucose 95 MG/DL Calcium Level 8.5 MG/DL Phosphorus Level 2.8 MG/DL Magnesium Level 1.7 MG/DL Assessment and Plan Problem List: (1) Acute respiratory insufficiency (2) COPD exacerbation (3) Tobacco abuse (4) History of lung cancer (5) SVT vs afib RVR (6) Free intraperitoneal air (7) History of lobectomy of lung Assessment and Plan 1.) SVT - converted to nsr after dig, continue tele, iv cardizem due to npo Erick Bernard MD Jan 15, 2017 15:08
[2017-01-15] MEDS: CHLORHEXIDINE GLUCONATE 2 % 1 PACK (2 CLOTHS)(taper/protocol) TOPICAL SCH (20:30)
[2017-01-16] VITALS (10 sets, daily range): BP systolic 126–133; BP diastolic 62–73; PULSE 65–75; RESP 18–24; TEMP 97.4–98.3; O2SAT 90–97
[2017-01-16] MEDS: ALBUTEROL SULFATE 90 MCG/ACT HFA 8 GM INHALER INH SCH ×5 (03:56→20:00)
[2017-01-16 05:30] LABS: HEMATOCRIT 33.1 % (35.0-46.0); MEAN CELL VOLUME 105.4 FL (80.0-100.0); MEAN CORPUSCULAR HEMOGLOBIN 36.7 PG (27.0-34.0); MEAN CORPUSCULAR HGB CONC 34.8 % (32.0-36.0); PLATELET COUNT 406 TH/MM3 (150-450); RED BLOOD COUNT 3.14 MIL/MM3 (4.00-5.30); RED CELL DISTRIBUTION WIDTH 14.9 % (11.6-17.2); REVIEW FLAG FINAL; WHITE BLOOD COUNT 15.1 TH/MM3 (4.0-11.0)
[2017-01-16] MEDS: PIPERACIL-TAZO 3.375 GM PREMIX 50 ML IV SCH ×3 (05:49→17:49)
[2017-01-16] MEDS: METOPROLOL TARTRATE 25 MG TAB PO SCH ×3 (05:49→20:31)
[2017-01-16] MEDS: DILTIAZEM HCL 30 MG TAB PO SCH ×3 (05:49→17:48)
[2017-01-16] MEDS: INSULIN NovoLIN REGULAR SUPPLEMENTAL SCALE SQ SCH ×4 (05:55→20:32)
[2017-01-16] MEDS: PANTOPRAZOLE SOD 40 MG DELAYED RELEASE TAB PO SCH ×2 (08:38→20:32)
[2017-01-16] MEDS: DOCUSATE SODIUM 50 MG/SENNA 8.6 MG TAB PO SCH (08:38)
[2017-01-16] MEDS: predniSONE 20 MG TAB PO SCH (08:38)
[2017-01-16] MEDS: NYSTATIN SUSP 500,000 U/5 ML CUP SWISH-SWAL SCH ×4 (08:39→20:32)
[2017-01-16] MEDS: NYSTAT/DIPHENHY/LIDO MOUTHWASH (Adult) 120ML SWISH-SWAL SCH ×4 (08:39→21:00)
[2017-01-16] MEDS: FOLIC ACID 1 MG TAB PO SCH (08:39)
[2017-01-16] MEDS: HEPARIN SODIUM - SQ 10,000 UNITS/ML VIAL SQ SCH ×2 (08:40→20:32)
[2017-01-16] MEDS: SODIUM CHLORIDE 0.9% FLUSH 10 ML FLUSH IVF SCH (08:40)
[2017-01-16] MEDS: SODIUM CHLORIDE 0.9% FLUSH 5 ML FLUSH IV FLUSH SCH ×2 (08:40→20:33)
[2017-01-16] MEDS: BUDESONIDE-FORMOTEROL 160/4.5 MCG INHALER INH SCH ×2 (08:41→20:33)
[2017-01-16] MEDS: UMECLIDINIUM 62.5 MCG/VILANTEROL 25 MCG INHALER INH SCH (08:42)
--- NOTE | 2017-01-16 09:25 | HHI.PR ---
Subjective Interval History denies CP, no SOB no abd. pain no fever As few loose diarrhea watery without any blood Review of systems a 10 point system otherwise unremarkable Vitals/Results Intake & Output 01/15/17 01/15/17 01/16/17 15:00 23:00 07:00 Intake Total 170 ml 240 ml 150 ml Balance 170 ml 240 ml 150 ml Intake Oral 120 ml 240 ml 50 ml IV Total 50 ml 100 ml # Voids 6 1 5 # Bowel Movements 6 1 5 Vital Signs Vital Signs Date Time Temp Pulse Resp B/P Pulse Ox O2 Delivery O2 Flow Rate FiO2 01/16/17 06:00 68 01/16/17 04:00 98.3 74 20 126/65 92 01/16/17 04:00 74 01/16/17 02:00 75 01/16/17 00:00 97.9 67 24 126/70 97 01/16/17 00:00 67 01/15/17 22:00 64 01/15/17 20:00 98.3 87 24 122/68 89 01/15/17 20:00 87 01/15/17 19:00 97 Nasal Cannula 4.00 01/15/17 18:00 76 01/15/17 16:00 98.3 72 25 118/63 95 01/15/17 16:00 72 01/15/17 14:00 55 01/15/17 12:00 98.1 67 22 120/64 94 01/15/17 12:00 55 01/15/17 10:16 94 Nasal Cannula 4.00 01/15/17 10:00 63 CBC/BMP: 01/16/17 0455 01/15/17 0415 Lab Results Laboratory Tests Test 01/16/17 04:55 White Blood Count 15.1 TH/MM3 Red Blood Count 3.14 MIL/MM3 Hemoglobin 11.5 GM/DL Hematocrit 33.1 % Mean Corpuscular Volume 105.4 FL Mean Corpuscular Hemoglobin 36.7 PG Mean Corpuscular Hemoglobin 34.8 % Concent Red Cell Distribution Width 14.9 % Platelet Count 406 TH/MM3 Mean Platelet Volume 7.0 FL Physical Exam General General Appearance: Well Developed, No Acute Distress, Comfortable Eyes Eye Exam: Pupils Equal, Pupils Reactive Ears & Nose Ears & Nose Exam: Nasal Mucosa [place] Throat Throat Exam: Oral Mucosa [place] & Moist Neck Neck Exam: Neck Supple Pulmonary Resp Exam: Breath Sounds Equal, No Distress, Decreased Bases Cardiology CV Exam: Regular, Good Perfusion Gastrointestinal/Abdomen GI Exam: Soft, Bowel Sounds Present, Non-Distended, Bowel Sounds Hypoactive Musculoskeletal MS Exam: Joints Intact Integumentary Skin Exam: Warm, Dry Extremeties Extremities Exam: No Edema, Pedal Pulses Palpable Neurologic Neuro Exam: Alert, Awake, Oriented, Speech Clear, Moving All Extremities, Bank Analyst Equal Psychiatric Psych Exam: Appropriate Responses VTE Prophylaxis VTE Prophylaxis Device: SCDs VTE Prophylaxis Meds: Heparin PUD Prophylasis PUD Prophylaxis: Protonix Assessment/Plan Problem List: (1) Sigmoid diverticulosis (2) Hiatal hernia (3) Macrocytosis without anemia (4) Acute respiratory insufficiency (5) Free intraperitoneal air (6) COPD exacerbation (7) History of lobectomy of lung (8) History of lung cancer (9) Tobacco abuse (10) probable pna (11) SVT vs afib RVR Assessment/Plan continue with present diet. Will make it. Diet as it hurts because of thrush surgical input appreciated non surgical management for now IVF abx pain management resp. improving wean off steroids, on by mouth prednisone continue abx Duonebs left arm swelling, check US of left arm r/o DVT-negative 01/13-Afib RVR vs SVT, given Cardizem, Adenosine, Lopressor. Patient is off of IV Cardizem now on by mouth Cardizem and Lopressor controlled rate tx to ICU, CCM input. Serial cardiac enzymes, cardiology consult appreciated and 2D echo report reviewed EF 55% and severe TR Within normal TSH, Increase activity Diarrhea C. difficile negative. Plan for cholestyramine Stable enough to transfer out of the unit as discussed with Mona Hernandez mouthwash Labs reviewed Stable H&H improving WBC count Plan for CBC in the morning Discussed with patient and son at bedside Discussed with Talon Courtney MD Jan 16, 2017 09:25
[2017-01-16] MEDS: CHOLESTYRAMINE 4 GM PACKET PO SCH ×3 (11:02→20:32)
--- NOTE | 2017-01-16 16:49 | PD.CARD.PN ---
Subjective Subjective Remarks alert in nad Objective Vital Signs / I&O Vital Signs Date Time Temp Pulse Resp B/P Pulse Ox O2 Delivery O2 Flow Rate FiO2 01/16/17 16:00 97.4 69 20 130/62 91 01/16/17 10:00 68 01/16/17 09:00 94 Nasal Cannula 4.00 01/16/17 08:00 97.9 66 22 130/73 90 01/16/17 08:00 66 01/16/17 07:00 98 Nasal Cannula 4.00 01/16/17 06:00 68 01/16/17 04:00 98.3 74 20 126/65 92 01/16/17 04:00 74 01/16/17 02:00 75 01/16/17 00:00 97.9 67 24 126/70 97 01/16/17 00:00 67 01/15/17 22:00 64 01/15/17 20:00 98.3 87 24 122/68 89 01/15/17 20:00 87 01/15/17 19:00 97 Nasal Cannula 4.00 01/15/17 18:00 76 I/O 01/15/17 01/15/17 01/15/17 01/16/17 01/16/17 01/16/17 07:00 15:00 23:00 07:00 15:00 23:00 Intake Total 160 ml 170 ml 240 ml 150 ml Balance 160 ml 170 ml 240 ml 150 ml Intake Oral 60 ml 120 ml 240 ml 50 ml IV Total 100 ml 50 ml 100 ml # Voids 4 6 1 5 # Bowel Movements 4 6 1 5 Physical Exam GENERAL: SKIN: Warm and dry. HEAD: Normocephalic. EYES: No scleral icterus. No injection or drainage. NECK: Supple, trachea midline. No JVD or lymphadenopathy. CARDIOVASCULAR: Regular rate and rhythm without murmurs, gallops, or rubs. RESPIRATORY: Breath sounds equal bilaterally. No accessory muscle use. GASTROINTESTINAL: Abdomen soft, non-tender, nondistended. MUSCULOSKELETAL: No cyanosis, or edema. BACK: Nontender without obvious deformity. No CVA tenderness. Laboratory Laboratory Tests Test 01/16/17 04:55 White Blood Count 15.1 TH/MM3 Red Blood Count 3.14 MIL/MM3 Hemoglobin 11.5 GM/DL Hematocrit 33.1 % Mean Corpuscular Volume 105.4 FL Mean Corpuscular Hemoglobin 36.7 PG Mean Corpuscular Hemoglobin 34.8 % Concent Red Cell Distribution Width 14.9 % Platelet Count 406 TH/MM3 Mean Platelet Volume 7.0 FL Assessment and Plan Problem List: (1) Acute respiratory insufficiency (2) COPD exacerbation (3) Tobacco abuse (4) History of lung cancer (5) SVT vs afib RVR (6) Free intraperitoneal air (7) History of lobectomy of lung Assessment and Plan 1.) SVT - converted to nsr after dig, continue tele,cont po losherry and Erick Moreau MD Jan 16, 2017 16:49
[2017-01-17] VITALS (9 sets, daily range): BP systolic 112–134; BP diastolic 62–93; PULSE 62–69; RESP 16–20; TEMP 95.3–98.1; O2SAT 95–98
[2017-01-17] MEDS: ALBUTEROL SULFATE 90 MCG/ACT HFA 8 GM INHALER INH SCH ×6 (00:18→20:00)
[2017-01-17] MEDS: DILTIAZEM HCL 30 MG TAB PO SCH ×4 (00:18→17:42)
[2017-01-17] MEDS: PIPERACIL-TAZO 3.375 GM PREMIX 50 ML IV SCH ×4 (00:19→17:42)
[2017-01-17] MEDS: CHLORHEXIDINE GLUCONATE 2 % 1 PACK (2 CLOTHS)(taper/protocol) TOPICAL SCH (04:00)
[2017-01-17] MEDS: METOPROLOL TARTRATE 25 MG TAB PO SCH ×3 (06:10→21:38)
[2017-01-17] MEDS: CHOLESTYRAMINE 4 GM PACKET PO SCH ×3 (06:10→21:38)
[2017-01-17] MEDS: INSULIN NovoLIN REGULAR SUPPLEMENTAL SCALE SQ SCH ×4 (06:25→20:10)
--- NOTE | 2017-01-17 08:33 | PD.CARD.PN ---
Subjective Subjective Remarks alert in nad Objective Vital Signs / I&O Vital Signs Date Time Temp Pulse Resp B/P Pulse Ox O2 Delivery O2 Flow Rate FiO2 01/17/17 08:00 98.1 62 18 124/78 98 01/17/17 04:00 97.7 64 18 124/93 98 01/17/17 00:00 97.6 69 18 134/80 98 01/16/17 23:11 Nasal Cannula 4.00 Humidified 01/16/17 20:01 67 01/16/17 20:00 98.0 65 18 133/63 96 01/16/17 16:00 97.4 69 20 130/62 91 01/16/17 10:00 68 01/16/17 09:00 94 Nasal Cannula 4.00 I/O 01/16/17 01/16/17 01/16/17 01/17/17 01/17/17 01/17/17 07:00 15:00 23:00 07:00 15:00 23:00 Intake Total 150 ml 240 ml 200 ml Balance 150 ml 240 ml 200 ml Intake Oral 50 ml 240 ml 100 ml IV Total 100 ml 100 ml # Voids 5 1 4 # Bowel Movements 5 1 1 Physical Exam GENERAL: SKIN: Warm and dry. HEAD: Normocephalic. EYES: No scleral icterus. No injection or drainage. NECK: Supple, trachea midline. No JVD or lymphadenopathy. CARDIOVASCULAR: Regular rate and rhythm without murmurs, gallops, or rubs. RESPIRATORY: Breath sounds equal bilaterally. No accessory muscle use. GASTROINTESTINAL: Abdomen soft, non-tender, nondistended. MUSCULOSKELETAL: No cyanosis, or edema. BACK: Nontender without obvious deformity. No CVA tenderness. Assessment and Plan Problem List: (1) Acute respiratory insufficiency (2) COPD exacerbation (3) Tobacco abuse (4) History of lung cancer (5) SVT vs afib RVR (6) Free intraperitoneal air (7) History of lobectomy of lung Assessment and Plan 1.) SVT - converted to nsr after dig, continue tele,cont po losherry and cardizem Erick Bernard MD Jan 17, 2017 08:33
[2017-01-17] MEDS: DOCUSATE SODIUM 50 MG/SENNA 8.6 MG TAB PO SCH (09:00)
[2017-01-17] MEDS: SODIUM CHLORIDE 0.9% FLUSH 10 ML FLUSH IVF SCH (09:00)
--- NOTE | 2017-01-17 09:02 | HHI.PR ---
Subjective Subjective Remarks having liquid stools, Questram not helping eating well, no n/v afebrile no palpitations no cp no sob no wheezing Review of Systems Constitutional Constitutional Remarks 12 point ROS completed, negative except as noted above Vitals/Results Intake & Output 01/16/17 01/16/17 01/17/17 15:00 23:00 07:00 Intake Total 240 ml 200 ml Balance 240 ml 200 ml Intake Oral 240 ml 100 ml IV Total 100 ml # Voids 1 4 # Bowel Movements 1 1 Vital Signs Vital Signs Date Time Temp Pulse Resp B/P Pulse Ox O2 Delivery O2 Flow Rate FiO2 01/17/17 08:00 98.1 62 18 124/78 98 01/17/17 04:00 97.7 64 18 124/93 98 01/17/17 00:00 97.6 69 18 134/80 98 01/16/17 23:11 Nasal Cannula 4.00 Humidified 01/16/17 20:01 67 01/16/17 20:00 98.0 65 18 133/63 96 01/16/17 16:00 97.4 69 20 130/62 91 01/16/17 10:00 68 CBC/BMP: 01/16/17 0455 01/15/17 0415 Physical Exam General General Appearance: Well Developed, No Acute Distress, Comfortable Eyes Eye Exam: Pupils Equal, Pupils Reactive Ears & Nose Ears & Nose Exam: Nasal Mucosa [place] Throat Throat Exam: Oral Mucosa [place] & Moist Neck Neck Exam: Neck Supple Pulmonary Resp Exam: Breath Sounds Equal, No Distress, Decreased Bases Cardiology CV Exam: Regular, Good Perfusion Gastrointestinal/Abdomen GI Exam: Soft, Bowel Sounds Present, Positive Bowel Movement, Non-Distended GI Remarks minimally tender Musculoskeletal MS Exam: Joints Intact Integumentary Skin Exam: Warm, Dry Extremeties Extremities Exam: No Edema, Pedal Pulses Palpable Neurologic Neuro Exam: Alert, Awake, Oriented, Speech Clear, Moving All Extremities, Stone Rougher Equal Psychiatric Psych Exam: Appropriate Responses VTE Prophylaxis VTE Prophylaxis Device: SCDs VTE Prophylaxis Meds: Heparin PUD Prophylasis PUD Prophylaxis: Protonix Assessment/Plan Problem List: (1) Sigmoid diverticulosis (2) Hiatal hernia (3) Macrocytosis without anemia (4) Acute respiratory insufficiency (5) Free intraperitoneal air (6) COPD exacerbation (7) History of lobectomy of lung (8) History of lung cancer (9) Tobacco abuse (10) probable pna (11) SVT vs afib RVR Assessment/Plan continue with present diet surgical input appreciated non surgical management for now IVF abx pain management resp. improving PO steroids, taper off continue abx Duonebs left arm swelling, check US of left arm r/o DVT-negative 01/13-Afib RVR vs SVT, given Cardizem, Adenosine, Lopressor tx to ICU, CCM consult. Signed off, now transferred back to floor appreciate card input Echo done, EF 50-55, severe tricuspid regurgitation continue with BB, CCB SR now, stable Diarrhea, neg. cdiff continue Questran Imodium PRN Heparin for DVT prophylaxis PPI for GI prophylaxis continue with PT, OOB CM for dc planning, HHC Poss dc in 1-2 days Labs in am D/W RN D/W Dr. Garcia D/ W pt This patient was seen by myself and Dr. Garcia, this note is written on his behalf. Rocio Alcala Jan 17, 2017 09:02
--- NOTE | 2017-01-17 09:02 | HHI.FF ---
Face to Face Verification Diagnosis: (1) Acute respiratory insufficiency (2) Hiatal hernia (3) Tobacco abuse (4) COPD exacerbation (5) History of lung cancer (6) Macrocytosis without anemia (7) Sigmoid diverticulosis (8) Free intraperitoneal air (9) probable pna (10) SVT vs afib RVR (11) History of lobectomy of lung Physical Therapy Order: Evaluate and Treat Home Health Nursing Order: Medical education Nursing assessment with vital signs I have seen patient Antionette Fraga on 01/17/17. My clinical findings support the need for the requested home health care services because: Patient has SOB Deconditioned w/ increased weakness I certify that my clinical findings support that this patient is homebound because: Hx COPD- exertion dyspnea/weakness Need for psychosocial assistance Rocio Alcala [facility] Jan 17, 2017 09:02
[2017-01-17] MEDS: UMECLIDINIUM 62.5 MCG/VILANTEROL 25 MCG INHALER INH SCH (09:56)
[2017-01-17] MEDS: PANTOPRAZOLE SOD 40 MG DELAYED RELEASE TAB PO SCH ×2 (09:58→20:10)
[2017-01-17] MEDS: FOLIC ACID 1 MG TAB PO SCH (09:58)
[2017-01-17] MEDS: predniSONE 20 MG TAB PO SCH (09:58)
[2017-01-17] MEDS: SODIUM CHLORIDE 0.9% FLUSH 5 ML FLUSH IV FLUSH SCH ×2 (09:58→20:17)
[2017-01-17] MEDS: NYSTAT/DIPHENHY/LIDO MOUTHWASH (Adult) 120ML SWISH-SWAL SCH ×4 (09:59→20:13)
[2017-01-17] MEDS: NYSTATIN SUSP 500,000 U/5 ML CUP SWISH-SWAL SCH ×4 (09:59→20:09)
[2017-01-17] MEDS: HEPARIN SODIUM - SQ 10,000 UNITS/ML VIAL SQ SCH ×2 (09:59→20:10)
[2017-01-17] MEDS: LOPERAMIDE HCL 2 MG CAP PO PRN (10:06)
[2017-01-18] VITALS (9 sets, daily range): BP systolic 122–146; BP diastolic 63–71; PULSE 62–81; RESP 14–20; TEMP 97.3–98.1; O2SAT 95–99
[2017-01-18] MEDS: DILTIAZEM HCL 30 MG TAB PO SCH ×5 (00:12→23:29)
[2017-01-18] MEDS: ALBUTEROL SULFATE 90 MCG/ACT HFA 8 GM INHALER INH SCH ×7 (00:13→23:29)
[2017-01-18] MEDS: PIPERACIL-TAZO 3.375 GM PREMIX 50 ML IV SCH ×5 (00:13→23:29)
[2017-01-18] MEDS: CHLORHEXIDINE GLUCONATE 2 % 1 PACK (2 CLOTHS)(taper/protocol) TOPICAL SCH (04:00)
[2017-01-18] MEDS: METOPROLOL TARTRATE 25 MG TAB PO SCH ×3 (05:34→20:31)
[2017-01-18] MEDS: CHOLESTYRAMINE 4 GM PACKET PO SCH ×3 (05:34→20:32)
[2017-01-18] MEDS: INSULIN NovoLIN REGULAR SUPPLEMENTAL SCALE SQ SCH ×4 (06:16→20:41)
[2017-01-18 07:58] LABS: HEMATOCRIT 34.1 % (35.0-46.0); MEAN CELL VOLUME 106.6 FL (80.0-100.0); MEAN CORPUSCULAR HEMOGLOBIN 35.6 PG (27.0-34.0); MEAN CORPUSCULAR HGB CONC 33.4 % (32.0-36.0); PLATELET COUNT 416 TH/MM3 (150-450); RED BLOOD COUNT 3.19 MIL/MM3 (4.00-5.30); RED CELL DISTRIBUTION WIDTH 15.1 % (11.6-17.2); REVIEW FLAG FINAL; WHITE BLOOD COUNT 12.4 TH/MM3 (4.0-11.0)
[2017-01-18 08:24] LABS: BICARBONATE 33.3 MEQ/L (21.0-32.0); POTASSIUM 3.3 MEQ/L (3.5-5.1)
[2017-01-18] MEDS: UMECLIDINIUM 62.5 MCG/VILANTEROL 25 MCG INHALER INH SCH (08:24)
[2017-01-18] MEDS: SODIUM CHLORIDE 0.9% FLUSH 10 ML FLUSH IVF SCH (08:26)
[2017-01-18] MEDS: SODIUM CHLORIDE 0.9% FLUSH 5 ML FLUSH IV FLUSH SCH ×2 (08:26→20:40)
[2017-01-18] MEDS: predniSONE 20 MG TAB PO SCH (08:27)
[2017-01-18] MEDS: PANTOPRAZOLE SOD 40 MG DELAYED RELEASE TAB PO SCH ×2 (08:29→20:31)
[2017-01-18] MEDS: HEPARIN SODIUM - SQ 10,000 UNITS/ML VIAL SQ SCH ×2 (08:29→20:31)
[2017-01-18] MEDS: FOLIC ACID 1 MG TAB PO SCH (08:29)
[2017-01-18] MEDS: NYSTATIN SUSP 500,000 U/5 ML CUP SWISH-SWAL SCH ×4 (08:29→20:32)
[2017-01-18] MEDS: LOPERAMIDE HCL 2 MG CAP PO PRN (08:34)
[2017-01-18] MEDS: NYSTAT/DIPHENHY/LIDO MOUTHWASH (Adult) 120ML SWISH-SWAL SCH ×4 (08:36→20:37)
[2017-01-18] MEDS: DOCUSATE SODIUM 50 MG/SENNA 8.6 MG TAB PO SCH (08:36)
--- NOTE | 2017-01-18 09:02 | HHI.PR ---
Subjective Subjective Remarks frequent of stools less minimal abd. discomfort no fever no cp no sob wants to get up to walk Review of Systems Constitutional Constitutional Remarks 12 point ROS completed, negative except as noted above Vitals/Results Intake & Output 01/17/17 01/17/17 01/18/17 15:00 23:00 07:00 Intake Total 720 ml 340 ml Output Total 240 ml Balance 720 ml 340 ml -240 ml Intake Oral 720 ml 340 ml Output Urine Total 240 ml # Voids 4 2 # Bowel Movements 4 2 2 Vital Signs Vital Signs Date Time Temp Pulse Resp B/P Pulse Ox O2 Delivery O2 Flow Rate FiO2 01/18/17 08:00 97.7 62 20 126/67 96 01/18/17 06:29 67 01/18/17 04:00 97.8 62 18 127/67 99 01/18/17 00:00 97.6 65 18 146/71 99 01/17/17 20:00 97.6 64 20 112/67 97 01/17/17 20:00 Nasal Cannula 4.00 Humidified 01/17/17 18:44 67 01/17/17 18:09 97 Nasal Cannula 4.00 01/17/17 15:50 95.3 66 16 120/62 97 01/17/17 14:34 95 Nasal Cannula 4.00 Humidified 01/17/17 12:23 97.5 65 20 129/78 95 01/17/17 09:33 98 Nasal Cannula 4.00 CBC/BMP: 01/18/17 0642 01/18/17 0642 Lab Results Laboratory Tests Test 01/18/17 06:42 White Blood Count 12.4 TH/MM3 Red Blood Count 3.19 MIL/MM3 Hemoglobin 11.4 GM/DL Hematocrit 34.1 % Mean Corpuscular Volume 106.6 FL Mean Corpuscular Hemoglobin 35.6 PG Mean Corpuscular Hemoglobin 33.4 % Concent Red Cell Distribution Width 15.1 % Platelet Count 416 TH/MM3 Mean Platelet Volume 7.3 FL Sodium Level 140 MEQ/L Potassium Level 3.3 MEQ/L Chloride Level 100 MEQ/L Carbon Dioxide Level 33.3 MEQ/L Anion Gap 7 MEQ/L Blood Urea Nitrogen 9 MG/DL Creatinine 0.41 MG/DL Estimat Glomerular Filtration 153 ML/MIN Rate Random Glucose 76 MG/DL Calcium Level 8.3 MG/DL Physical Exam General General Appearance: Well Developed, No Acute Distress, Comfortable Eyes Eye Exam: Pupils Equal, Pupils Reactive Ears & Nose Ears & Nose Exam: Nasal Mucosa [place] Throat Throat Exam: Oral Mucosa [place] & Moist Neck Neck Exam: Neck Supple Pulmonary Resp Exam: Breath Sounds Equal, No Distress, Decreased Bases Cardiology CV Exam: Regular, Good Perfusion Gastrointestinal/Abdomen GI Exam: Soft, Bowel Sounds Present, Positive Bowel Movement, Non-Distended GI Remarks minimally tender Musculoskeletal MS Exam: Joints Intact Integumentary Skin Exam: Warm, Dry Extremeties Extremities Exam: No Edema, Pedal Pulses Palpable Neurologic Neuro Exam: Alert, Awake, Oriented, Speech Clear, Moving All Extremities, Pitch Flaker Equal Psychiatric Psych Exam: Appropriate Responses VTE Prophylaxis VTE Prophylaxis Device: SCDs VTE Prophylaxis Meds: Heparin PUD Prophylasis PUD Prophylaxis: Protonix Assessment/Plan Problem List: (1) Sigmoid diverticulosis (2) Hiatal hernia (3) Macrocytosis without anemia (4) Acute respiratory insufficiency (5) Free intraperitoneal air (6) COPD exacerbation (7) History of lobectomy of lung (8) History of lung cancer (9) Tobacco abuse (10) probable pna (11) SVT vs afib RVR Assessment/Plan continue with present diet surgical input appreciated non surgical management for now IVF abx pain management resp. improving PO steroids, taper off continue abx Duonebs left arm swelling, check US of left arm r/o DVT-negative 01/13-Afib RVR vs SVT, given Cardizem, Adenosine, Lopressor tx to ICU, CCM consult. Signed off, now transferred back to floor appreciate card input Echo done, EF 50-55, severe tricuspid regurgitation continue with BB, CCB SR now, stable Diarrhea, neg. cdiff continue Questran Imodium PRN frequent of stools less Labs reviewed, WBC elevated, on steroids Replace K Heparin for DVT prophylaxis PPI for GI prophylaxis continue with PT, OOB CM for dc planning, HHC Poss dc in 1-2 days D/W RN D/W Dr. Garcia D/ W pt This patient was seen by myself and Dr. Garcia, this note is written on his behalf. Rocio Alcala Jan 18, 2017 09:02
[2017-01-18] MEDS ORDERED: POTASSIUM CHLORIDE 25 MEQ EFFERVESCENT TAB PO ONE (09:15)
--- NOTE | 2017-01-18 10:47 | PD.CARD.PN ---
Subjective Subjective Remarks alert in nad, taking po Objective Vital Signs / I&O Vital Signs Date Time Temp Pulse Resp B/P Pulse Ox O2 Delivery O2 Flow Rate FiO2 01/18/17 08:00 97.7 62 20 126/67 96 01/18/17 06:29 67 01/18/17 04:00 97.8 62 18 127/67 99 01/18/17 00:00 97.6 65 18 146/71 99 01/17/17 20:00 97.6 64 20 112/67 97 01/17/17 20:00 Nasal Cannula 4.00 Humidified 01/17/17 18:44 67 01/17/17 18:09 97 Nasal Cannula 4.00 01/17/17 15:50 95.3 66 16 120/62 97 01/17/17 14:34 95 Nasal Cannula 4.00 Humidified 01/17/17 12:23 97.5 65 20 129/78 95 I/O 01/17/17 01/17/17 01/17/17 01/18/17 01/18/17 01/18/17 07:00 15:00 23:00 07:00 15:00 23:00 Intake Total 200 ml 720 ml 340 ml Output Total 240 ml Balance 200 ml 720 ml 340 ml -240 ml Intake Oral 100 ml 720 ml 340 ml IV Total 100 ml Output Urine Total 240 ml # Voids 4 4 2 # Bowel Movements 1 4 2 2 Physical Exam GENERAL: SKIN: Warm and dry. HEAD: Normocephalic. EYES: No scleral icterus. No injection or drainage. NECK: Supple, trachea midline. No JVD or lymphadenopathy. CARDIOVASCULAR: Regular rate and rhythm without murmurs, gallops, or rubs. RESPIRATORY: Breath sounds equal bilaterally. No accessory muscle use. GASTROINTESTINAL: Abdomen soft, non-tender, nondistended. MUSCULOSKELETAL: No cyanosis, or edema. BACK: Nontender without obvious deformity. No CVA tenderness. Laboratory Laboratory Tests Test 01/18/17 06:42 White Blood Count 12.4 TH/MM3 Red Blood Count 3.19 MIL/MM3 Hemoglobin 11.4 GM/DL Hematocrit 34.1 % Mean Corpuscular Volume 106.6 FL Mean Corpuscular Hemoglobin 35.6 PG Mean Corpuscular Hemoglobin 33.4 % Concent Red Cell Distribution Width 15.1 % Platelet Count 416 TH/MM3 Mean Platelet Volume 7.3 FL Sodium Level 140 MEQ/L Potassium Level 3.3 MEQ/L Chloride Level 100 MEQ/L Carbon Dioxide Level 33.3 MEQ/L Anion Gap 7 MEQ/L Blood Urea Nitrogen 9 MG/DL Creatinine 0.41 MG/DL Estimat Glomerular Filtration 153 ML/MIN Rate Random Glucose 76 MG/DL Calcium Level 8.3 MG/DL Assessment and Plan Problem List: (1) Acute respiratory insufficiency (2) COPD exacerbation (3) Tobacco abuse (4) History of lung cancer (5) SVT vs afib RVR (6) Free intraperitoneal air (7) History of lobectomy of lung Assessment and Plan 1.) SVT - converted to nsr after dig, continue tele,cont po richardson and Erick Moreau MD Jan 18, 2017 10:47
[2017-01-19] VITALS (9 sets, daily range): BP systolic 97–133; BP diastolic 54–63; PULSE 65–74; RESP 16–18; TEMP 97.8–98; O2SAT 94–97
[2017-01-19] MEDS: ALBUTEROL SULFATE 90 MCG/ACT HFA 8 GM INHALER INH SCH ×6 (04:01→23:05)
[2017-01-19 05:10] LABS: C. DIFF EPI 027 PRESUMPTIVE NEGATIVE (NEGATIVE); C. DIFF TOXIN PCR NEGATIVE (NEGATIVE)
[2017-01-19] MEDS: DILTIAZEM HCL 30 MG TAB PO SCH ×4 (05:22→23:05)
[2017-01-19] MEDS: METOPROLOL TARTRATE 25 MG TAB PO SCH ×3 (05:22→21:18)
[2017-01-19] MEDS: CHOLESTYRAMINE 4 GM PACKET PO SCH ×3 (05:22→21:18)
[2017-01-19] MEDS: PIPERACIL-TAZO 3.375 GM PREMIX 50 ML IV SCH ×4 (05:23→23:05)
[2017-01-19] MEDS: INSULIN NovoLIN REGULAR SUPPLEMENTAL SCALE SQ SCH ×4 (06:12→21:00)
[2017-01-19] MEDS: NYSTATIN SUSP 500,000 U/5 ML CUP SWISH-SWAL SCH ×4 (08:53→21:18)
[2017-01-19] MEDS: PANTOPRAZOLE SOD 40 MG DELAYED RELEASE TAB PO SCH ×2 (08:53→21:18)
[2017-01-19] MEDS: FOLIC ACID 1 MG TAB PO SCH (08:54)
[2017-01-19] MEDS: SODIUM CHLORIDE 0.9% FLUSH 5 ML FLUSH IV FLUSH SCH ×2 (08:54→21:00)
[2017-01-19] MEDS: HEPARIN SODIUM - SQ 10,000 UNITS/ML VIAL SQ SCH ×2 (08:54→21:20)
[2017-01-19] MEDS: predniSONE 20 MG TAB PO SCH (08:54)
[2017-01-19] MEDS: UMECLIDINIUM 62.5 MCG/VILANTEROL 25 MCG INHALER INH SCH (08:55)
[2017-01-19] MEDS: SODIUM CHLORIDE 0.9% FLUSH 10 ML FLUSH IVF SCH (08:55)
[2017-01-19] MEDS: NYSTAT/DIPHENHY/LIDO MOUTHWASH (Adult) 120ML SWISH-SWAL SCH ×4 (08:58→21:18)
[2017-01-19] MEDS: ACETAMINOPHEN/HYDROcodone 325 MG/5 MG TAB PO PRN ×3 (09:11→21:32)
--- NOTE | 2017-01-19 13:25 | PD.CARD.PN ---
Subjective Subjective Remarks alert in nad Objective Vital Signs / I&O Vital Signs Date Time Temp Pulse Resp B/P Pulse Ox O2 Delivery O2 Flow Rate FiO2 01/19/17 12:00 97.9 74 18 115/56 95 01/19/17 08:00 Nasal Cannula 2.00 Humidified 01/19/17 08:00 98.0 70 18 119/61 97 01/19/17 04:00 97.9 74 16 129/63 96 01/19/17 01:41 65 01/19/17 00:00 97.8 71 16 133/60 97 01/18/17 20:30 Nasal Cannula 4.00 Humidified 01/18/17 20:00 98.1 66 14 122/63 98 01/18/17 17:59 62 01/18/17 17:33 95 Nasal Cannula 4.00 01/18/17 16:00 97.8 81 20 134/68 95 I/O 01/18/17 01/18/17 01/18/17 01/19/17 01/19/17 01/19/17 07:00 15:00 23:00 07:00 15:00 23:00 Intake Total 340 ml 240 ml Output Total 240 ml 300 ml Balance -240 ml 40 ml 240 ml Intake Oral 240 ml 240 ml IV Total 100 ml Output Urine Total 240 ml 300 ml # Voids 4 2 1 # Bowel Movements 2 0 1 0 Physical Exam GENERAL: SKIN: Warm and dry. HEAD: Normocephalic. EYES: No scleral icterus. No injection or drainage. NECK: Supple, trachea midline. No JVD or lymphadenopathy. CARDIOVASCULAR: Regular rate and rhythm without murmurs, gallops, or rubs. RESPIRATORY: Breath sounds equal bilaterally. No accessory muscle use. GASTROINTESTINAL: Abdomen soft, non-tender, nondistended. MUSCULOSKELETAL: No cyanosis, or edema. BACK: Nontender without obvious deformity. No CVA tenderness. Laboratory Laboratory Tests Test 01/19/17 04:00 Stool C. difficile Toxin (PCR) NEGATIVE Stl C. difficile Toxin PRESUMPTIVE Epiderm 027 NEGATIVE Assessment and Plan Problem List: (1) Acute respiratory insufficiency (2) COPD exacerbation (3) Tobacco abuse (4) History of lung cancer (5) SVT vs afib RVR (6) Free intraperitoneal air (7) History of lobectomy of lung Assessment and Plan 1.) SVT - converted to nsr after dig, continue tele,cont po lopressor and cardizem, ok to dc from cv standpoint, f/u with me in my office alvino, d/w patient Erick Bernard MD Jan 19, 2017 13:25
--- NOTE | 2017-01-19 13:53 | HHI.PR ---
Subjective Subjective Remarks resting in bed alert, awake No SOB responsive no family present. afebrile diarrhea persists.5 X today, but less cramping vs few weeks before admission ( Kassandra Echols) Vitals/Results Intake & Output 01/18/17 01/18/17 01/19/17 15:00 23:00 07:00 Intake Total 340 ml 240 ml Output Total 300 ml Balance 40 ml 240 ml Intake Oral 240 ml 240 ml IV Total 100 ml Output Urine Total 300 ml # Voids 4 2 1 # Bowel Movements 0 1 0 Vital Signs Vital Signs Date Time Temp Pulse Resp B/P Pulse Ox O2 Delivery O2 Flow Rate FiO2 01/19/17 12:00 97.9 74 18 115/56 95 01/19/17 08:00 Nasal Cannula 2.00 Humidified 01/19/17 08:00 98.0 70 18 119/61 97 01/19/17 04:00 97.9 74 16 129/63 96 01/19/17 01:41 65 01/19/17 00:00 97.8 71 16 133/60 97 01/18/17 20:30 Nasal Cannula 4.00 Humidified 01/18/17 20:00 98.1 66 14 122/63 98 01/18/17 17:59 62 01/18/17 17:33 95 Nasal Cannula 4.00 01/18/17 16:00 97.8 81 20 134/68 95 (Kassandra Echols) CBC/BMP: 01/18/17 0642 01/18/17 0642 Lab Results Laboratory Tests Test 01/19/17 04:00 Stool C. difficile Toxin (PCR) NEGATIVE Stl C. difficile Toxin PRESUMPTIVE Epiderm 027 NEGATIVE (Kassandra Echols) Physical Exam General General Appearance: Well Developed, No Acute Distress, Comfortable (Kassandra Echols) Eyes Eye Exam: Pupils Equal, Pupils Reactive (Kassandra Echols) Ears & Nose Ears & Nose Exam: Nasal Mucosa [place] (Kassandra Echols) Throat Throat Exam: Oral Mucosa [place] & Moist (Kassandra Echols) Neck Neck Exam: Neck Supple (Kassandra Echols) Pulmonary Resp Exam: Breath Sounds Equal, No Distress, Decreased Bases ([place],Kassandra M. CUSTOMS MANAGER) Cardiology CV Exam: Regular, Good Perfusion ([place] M. CUSTOMS MANAGER) Gastrointestinal/Abdomen GI Exam: Soft, Bowel Sounds Present, Positive Bowel Movement, Non-Distended ( [place] M. CUSTOMS MANAGER) Musculoskeletal MS Exam: Joints Intact ([place] M. CUSTOMS MANAGER) Integumentary Skin Exam: Warm, Dry ([place] M. CUSTOMS MANAGER) Extremeties Extremities Exam: No Edema, Pedal Pulses Palpable ([place] M. CUSTOMS MANAGER) Neurologic Neuro Exam: Alert, Awake, Oriented, Speech Clear, Moving All Extremities, Call Center Receptionist Equal ([place]Kassandra M. CUSTOMS MANAGER) Psychiatric Psych Exam: Appropriate Responses ([place],Kassandra M. CUSTOMS MANAGER) VTE Prophylaxis VTE Prophylaxis Device: SCDs VTE Prophylaxis Meds: Heparin ([place],Kassandra M. CUSTOMS MANAGER) PUD Prophylasis PUD Prophylaxis: Protonix (Kinza,Kassandra M. CUSTOMS MANAGER) Assessment/Plan Problem List: (1) Sigmoid diverticulosis (2) Hiatal hernia (3) Macrocytosis without anemia (4) Acute respiratory insufficiency (5) Free intraperitoneal air (6) COPD exacerbation (7) History of lobectomy of lung (8) History of lung cancer (9) Tobacco abuse (10) probable pna (11) SVT vs afib RVR Assessment/Plan vitals reviewed, couurently afebrile , Pulse, BP, resp. normal range. Probable viscus perf. Non operative treatment , multicomplications with rhythm, and SOB, now stable diarrhea continues. continue with present diet over last 48 hrs. surgical input appreciated IVF abx pain management resp. improving PO steroids, taper off continue abx Duonebs left arm swelling, check US of left arm r/o DVT-negative 01/13-Afib RVR vs SVT, given Cardizem, Adenosine, Lopressor appreciate card input, controlled now with medical management. Echo done, EF 50-55, severe tricuspid regurgitation SR now, stable after digoxin. Will see after DC as OP. stable for now. Diarrhea, neg. cdiff continue Questran Imodium PRN frequent of stools less, but continue. 5-6 today, without warning , May need to see GI for W/U now that she is more stable vs OP . labs reviewed. WBC elevated, on steroids recheck K+ today Heparin for DVT prophylaxis PPI for GI prophylaxis CM for dc planning, [facility] D/W RN D/W Dr. purdy, pt. seen on her behalf D/ W pt (Kassandra Echols) Assessment/Plan patient seen and examined still having diarrhea C Diff neg increased questran cleared by Cardiology for discharge discussed with patient discussed with Kassandra HECTOR (Donna Purdy MD) Kassandra Echols Jan 19, 2017 13:53 Donna Purdy MD Jan 19, 2017 15:43
--- NOTE | 2017-01-19 17:25 | HHI.IDPN ---
Subjective Subjective Remarks cont to have very liquid diarrhea 5- 8 BMs/d; .diff negative / including one from today co abd pain no fever Antibiotics zosyn Allergies: Coded Allergies: Azithromycin (Verified Allergy, Severe, Anaphylaxis, 01/07/17) Objective . Vital Signs Date Time Temp Pulse Resp B/P Pulse Ox O2 Delivery O2 Flow Rate FiO2 01/19/17 12:00 97.9 74 18 115/56 95 01/19/17 10:11 20 01/19/17 08:05 97 Nasal Cannula 2.00 01/19/17 08:00 Nasal Cannula 2.00 Humidified 01/19/17 08:00 98.0 70 18 119/61 97 01/19/17 07:58 68 01/19/17 04:00 97.9 74 16 129/63 96 01/19/17 01:41 65 01/19/17 00:00 97.8 71 16 133/60 97 01/18/17 20:30 Nasal Cannula 4.00 Humidified 01/18/17 20:00 98.1 66 14 122/63 98 01/18/17 17:59 62 01/18/17 17:33 95 Nasal Cannula 4.00 01/18/17 01/18/17 01/19/17 15:00 23:00 07:00 Intake Total 340 ml 240 ml Output Total 300 ml Balance 40 ml 240 ml Intake Oral 240 ml 240 ml IV Total 100 ml Output Urine Total 300 ml # Voids 4 2 1 # Bowel Movements 0 1 0 . Laboratory Tests Test 01/18/17 06:42 White Blood Count 12.4 TH/MM3 Red Blood Count 3.19 MIL/MM3 Hemoglobin 11.4 GM/DL Hematocrit 34.1 % Mean Corpuscular Volume 106.6 FL Mean Corpuscular Hemoglobin 35.6 PG Mean Corpuscular Hemoglobin 33.4 % Concent Red Cell Distribution Width 15.1 % Platelet Count 416 TH/MM3 Mean Platelet Volume 7.3 FL Laboratory Tests Test 01/18/17 06:42 Sodium Level 140 MEQ/L Potassium Level 3.3 MEQ/L Chloride Level 100 MEQ/L Carbon Dioxide Level 33.3 MEQ/L Anion Gap 7 MEQ/L Blood Urea Nitrogen 9 MG/DL Creatinine 0.41 MG/DL Estimat Glomerular Filtration 153 ML/MIN Rate Random Glucose 76 MG/DL Calcium Level 8.3 MG/DL Imaging Last Impressions Chest X-Ray 01/13/17 0000 Signed Impressions: Service Date/Time: Friday, January 13, 2017 12:20 - CONCLUSION: No significant change with persistent bilateral lower lung zone pulmonary parenchymal opacity suggesting pulmonary edema and bilateral pleural effusions. Alex Rivers MD Upper Extremity Ultrasound 01/12/17 0000 Signed Impressions: Service Date/Time: Thursday, January 12, 2017 22:55 - CONCLUSION: Normal examination. Bryan Lambert MD Abdomen X-Ray 01/09/17 0600 Signed Impressions: Service Date/Time: Monday, January 09, 2017 05:08 - CONCLUSION: Normal examination. Agusto Funes Jr., MD Abdomen/Pelvis CT 01/07/17 0553 Signed Impressions: Service Date/Time: Saturday, January 07, 2017 07:07 - CONCLUSION: 1. There is a small volume of free intraperitoneal air suggestive of perforated bowel. The site of perforation is not identified however. 2. There is also a small volume of free fluid in the abdomen and pelvis with associated peritoneal enhancement. Enhancement of the peritoneum is typically associated with infection, hemorrhage, or malignancy. 3. Nonacute findings include moderate size hiatal hernia, severe atherosclerotic disease, and sigmoid diverticulosis. These findings were discussed with Dr. Chiang via telephone. Joo Mc MD Physical Exam CONSTITUTIONAL/GENERAL: This is a thin frail elderly patient, in no apparent distress. TUBES/LINES/DRAINS: SKIN: No jaundice, rashes, or lesions EYES: No scleral icterus. CARDIOVASCULAR: Regular rate and rhythm without murmurs, gallops, or rubs. No JVD. Peripheral pulses symmetric. RESPIRATORY/CHEST: Symmetric, unlabored respirations. Clear to auscultation. Breath sounds very diminished bilaterally. GASTROINTESTINAL: Abdomen soft, non-tender, minimally distended. No hepato- splenomegaly, or palpable masses. No guarding. Bowel sounds present. MUSCULOSKELETAL: Extremities without clubbing, cyanosis, or edema. No mottling NEUROLOGICAL: Awake and alert. non focal; normal speech PSYCHIATRIC: No obvious anxiety/depression. no apparent hallucinations or other psychotic thought process. Assessment & Plan Remarks sp viscus perforation, tolerating non-op treatment Anaerobic sepsis - likely 2/2 viscus perf: prevotella, bacteroides Diarrea, abx associated, C.diff negative Unstabel 2/2 AVR Afib, no e/o ongoing sepsis physiology Leukocytosis - improving cont zosyn x 14 days total (one more day) OK to switch to po (levaquin, flagyl) when ready for dc - if cont to have abd candace nad/or leukocytosis/fever will get CT A/P to eval for possible abscess dw Graicela Agudelo MD Jan 19, 2017 17:25
[2017-01-19 19:05] LABS: BICARBONATE 34.5 MEQ/L (21.0-32.0); POTASSIUM 4.7 MEQ/L (3.5-5.1)
[2017-01-20] VITALS (11 sets, daily range): BP systolic 112–122; BP diastolic 55–66; PULSE 59–91; RESP 16–18; TEMP 97.5–98.4; O2SAT 97–98
[2017-01-20] MEDS: ALBUTEROL SULFATE 90 MCG/ACT HFA 8 GM INHALER INH SCH ×6 (04:00→22:57)
[2017-01-20] MEDS: PIPERACIL-TAZO 3.375 GM PREMIX 50 ML IV SCH ×3 (05:04→18:53)
[2017-01-20] MEDS: DILTIAZEM HCL 30 MG TAB PO SCH ×4 (05:07→22:57)
[2017-01-20] MEDS: METOPROLOL TARTRATE 25 MG TAB PO SCH ×3 (05:07→22:57)
[2017-01-20] MEDS: ACETAMINOPHEN/HYDROcodone 325 MG/5 MG TAB PO PRN ×4 (05:14→22:58)
[2017-01-20] MEDS: INSULIN NovoLIN REGULAR SUPPLEMENTAL SCALE SQ SCH ×3 (06:42→15:23)
[2017-01-20] MEDS: SODIUM CHLORIDE 0.9% FLUSH 5 ML FLUSH IV FLUSH SCH ×2 (09:00→20:09)
[2017-01-20] MEDS: UMECLIDINIUM 62.5 MCG/VILANTEROL 25 MCG INHALER INH SCH (09:00)
[2017-01-20] MEDS: SODIUM CHLORIDE 0.9% FLUSH 10 ML FLUSH IVF SCH (09:00)
[2017-01-20] MEDS: CHOLESTYRAMINE 4 GM PACKET PO SCH ×2 (09:17→20:06)
[2017-01-20] MEDS: PANTOPRAZOLE SOD 40 MG DELAYED RELEASE TAB PO SCH ×2 (09:17→20:07)
[2017-01-20] MEDS: FOLIC ACID 1 MG TAB PO SCH (09:17)
[2017-01-20] MEDS: NYSTATIN SUSP 500,000 U/5 ML CUP SWISH-SWAL SCH ×4 (09:17→20:07)
[2017-01-20] MEDS: HEPARIN SODIUM - SQ 10,000 UNITS/ML VIAL SQ SCH ×2 (09:18→20:06)
[2017-01-20] MEDS: NYSTAT/DIPHENHY/LIDO MOUTHWASH (Adult) 120ML SWISH-SWAL SCH ×4 (09:18→20:10)
[2017-01-20] MEDS: predniSONE 20 MG TAB PO SCH (09:19)
--- NOTE | 2017-01-20 10:18 | HHI.PR ---
Subjective Subjective Remarks resting in bed tongue sore with blisters, alert, awake No SOB at rest afebrile diarrhea X 1 today, small amount (Kassandra Echols) Review of Systems Constitutional Constitutional: Weakness (improving gradual) Constitutional Remarks 10 Point ROS done. Positives noted. (Kassandra Echols) Throat Throat: Sore Throat (tongue reddened with blisters, yeast ) (Kassandra Echols) Pulmonary Respiratory: Shortness of Breath (none at rest ) (Kassandra Echols) GI/Abdomen GI/Abdominal Exam: Diarrhea (Kassandra Echols) Musculoskeletal MS: Weakness (gradual improvement ) (Kassandra Echols) Integumentary Skin: Rash (tongue) (Kassandra Echols) Psychiatric Psychiatric: Normal Mood (Kassandra Echols) Vitals/Results Intake & Output 01/19/17 01/19/17 01/20/17 15:00 23:00 07:00 Intake Total 240 ml 100 ml Output Total 275 ml Balance 240 ml -175 ml Intake Oral 240 ml 100 ml Output Urine Total 275 ml # Voids 0 # Bowel Movements 0 0 Vital Signs Vital Signs Date Time Temp Pulse Resp B/P Pulse Ox O2 Delivery O2 Flow Rate FiO2 01/20/17 08:00 97.5 59 18 112/55 97 01/20/17 04:00 97.9 72 18 119/58 97 01/20/17 00:00 97.6 69 16 122/66 97 01/19/17 20:00 69 01/19/17 20:00 Nasal Cannula 2.00 Humidified 01/19/17 20:00 97.9 70 16 119/57 96 01/19/17 16:00 98.0 72 18 97/54 94 01/19/17 12:00 97.9 74 18 115/56 95 (Kassandra Echols) CBC/BMP: 01/18/17 0642 01/19/17 1819 Lab Results Laboratory Tests Test 01/19/17 18:19 Sodium Level 138 MEQ/L Potassium Level 4.7 MEQ/L Chloride Level 98 MEQ/L Carbon Dioxide Level 34.5 MEQ/L Anion Gap 6 MEQ/L Blood Urea Nitrogen 9 MG/DL Creatinine 0.43 MG/DL Estimat Glomerular Filtration 145 ML/MIN Rate Random Glucose 129 MG/DL Calcium Level 9.0 MG/DL Imaging Remarks Last Impressions Chest X-Ray 01/13/17 0000 Signed Impressions: Service Date/Time: Friday, January 13, 2017 12:20 - CONCLUSION: No significant change with persistent bilateral lower lung zone pulmonary parenchymal opacity suggesting pulmonary edema and bilateral pleural effusions. Alex Rivers MD Upper Extremity Ultrasound 01/12/17 0000 Signed Impressions: Service Date/Time: Thursday, January 12, 2017 22:55 - CONCLUSION: Normal examination. Bryan Lambert MD Abdomen X-Ray 01/09/17 0600 Signed Impressions: Service Date/Time: Monday, January 09, 2017 05:08 - CONCLUSION: Normal examination. Agusto Funes Jr., MD Abdomen/Pelvis CT 01/07/17 0553 Signed Impressions: Service Date/Time: Saturday, January 07, 2017 07:07 - CONCLUSION: 1. There is a small volume of free intraperitoneal air suggestive of perforated bowel. The site of perforation is not identified however. 2. There is also a small volume of free fluid in the abdomen and pelvis with associated peritoneal enhancement. Enhancement of the peritoneum is typically associated with infection, hemorrhage, or malignancy. 3. Nonacute findings include moderate size hiatal hernia, severe atherosclerotic disease, and sigmoid diverticulosis. These findings were discussed with Dr. Chiang via telephone. Joo Mc MD Current Medications Active Medications Cholestyramine Resin (Questran 4 Gm Pkt) 8 gm BID PO Last administered on t 09:17; Admin Dose 8 GM; Start 01/19/17 at 21:00 (Kassandra EcholsP) Physical Exam General General Appearance: Well Developed, No Acute Distress, Comfortable (Kassandra Echols. MANAGER INDUSTRIAL) Eyes Eye Exam: Pupils Equal, Pupils Reactive (Kassandra Echols MANAGER INDUSTRIAL) Ears & Nose Ears & Nose Exam: Nasal Mucosa [place] (Kassandra Echols MANAGER INDUSTRIAL) Throat Throat Exam: Oral Mucosa [place] & Moist (Kassandra Echols MANAGER INDUSTRIAL) Neck Neck Exam: Neck Supple (Kassandra Echols MANAGER INDUSTRIAL) Pulmonary Resp Exam: Breath Sounds Equal, No Distress, Decreased Bases ([place] M. MANAGER INDUSTRIAL) Cardiology CV Exam: Regular, Good Perfusion ([place]Kassandra M. MANAGER INDUSTRIAL) Gastrointestinal/Abdomen GI Exam: Soft, Bowel Sounds Present, Positive Bowel Movement, Non-Distended ( [place],Kassandra M. MANAGER INDUSTRIAL) Musculoskeletal MS Exam: Joints Intact ([place],Kassandra M. MANAGER INDUSTRIAL) Integumentary Skin Exam: Warm, Dry ([place],Kassandra M. MANAGER INDUSTRIAL) Extremeties Extremities Exam: No Edema, Pedal Pulses Palpable ([place],Kassandra M. MANAGER INDUSTRIAL) Neurologic Neuro Exam: Alert, Awake, Oriented, Speech Clear, Moving All Extremities, Industrial Diamond Polisher Equal ([place],Kassandra M. MANAGER INDUSTRIAL) Psychiatric Psych Exam: Appropriate Responses ([place]assandra M. MANAGER INDUSTRIAL) VTE Prophylaxis VTE Prophylaxis Device: SCDs VTE Prophylaxis Meds: Heparin ([place],Kassandra M. MANAGER INDUSTRIAL) PUD Prophylasis PUD Prophylaxis: Protonix ([place],Kassandra M. MANAGER INDUSTRIAL) Assessment/Plan Problem List: (1) Sigmoid diverticulosis (2) Hiatal hernia (3) Macrocytosis without anemia (4) Acute respiratory insufficiency (5) Free intraperitoneal air (6) COPD exacerbation (7) History of lobectomy of lung (8) History of lung cancer (9) Tobacco abuse (10) probable pna (11) SVT vs afib RVR Assessment/Plan Thrush, oral, Diflucan PO initiated. Pt not DM, accuchecks d/c vitals reviewed, couurently afebrile , Pulse, BP, resp. normal range. Probable viscus perf. Non operative treatment diarrhea X 1 today, Probable due to antibiotics able to eat solid food, appetite fair surgical input appreciated IVF abx X 1 more day IV through today, then transition to PO Levaquin pain management resp.stable PO steroids, tapering, dc on on 01/22/17 Duonebs 01/13-Afib RVR vs SVT, given Cardizem, Adenosine, Lopressor appreciate card input, controlled now with medical management. Echo done, EF 50-55, severe tricuspid regurgitation SR now, stable after digoxin. Will see after DC as OP. stable for now. Diarrhea, neg. cdiff, continue Questran Imodium PRN frequent of stools less, but continue., probable to antibiotic therapy. monitor Heparin for DVT prophylaxis PPI for GI prophylaxis CM for dc planning, [facility], once patient is on PO meds. (Kassandra Echols) Assessment/Plan continues to have diarrhea/ loose stools 4-5 today patient seen and examiend C diff neg hopefully switch to po antibiotics in am d/c planning when diarrhea better discussed with patient discussed with Kassandra HECTOR (Donna Purdy MD) Kassandra Echols Jan 20, 2017 10:17 Donna Purdy MD Jan 20, 2017 15:56
[2017-01-20] MEDS ORDERED: PILL SPLITTER OTHER PRN (10:45)
--- NOTE | 2017-01-20 11:45 | PD.CARD.PN ---
Subjective Subjective Remarks asleep in nad Objective Vital Signs / I&O Vital Signs Date Time Temp Pulse Resp B/P Pulse Ox O2 Delivery O2 Flow Rate FiO2 01/20/17 08:00 97.5 59 18 112/55 97 01/20/17 08:00 Nasal Cannula 2.00 Humidified 01/20/17 04:00 97.9 72 18 119/58 97 01/20/17 00:00 97.6 69 16 122/66 97 01/19/17 20:00 69 01/19/17 20:00 Nasal Cannula 2.00 Humidified 01/19/17 20:00 97.9 70 16 119/57 96 01/19/17 16:00 98.0 72 18 97/54 94 01/19/17 12:00 97.9 74 18 115/56 95 I/O 01/19/17 01/19/17 01/19/17 01/20/17 01/20/17 01/20/17 07:00 15:00 23:00 07:00 15:00 23:00 Intake Total 240 ml 240 ml 100 ml Output Total 275 ml Balance 240 ml 240 ml -175 ml Intake Oral 240 ml 240 ml 100 ml Output Urine Total 275 ml # Voids 1 0 # Bowel Movements 0 0 0 Physical Exam GENERAL: SKIN: Warm and dry. HEAD: Normocephalic. EYES: No scleral icterus. No injection or drainage. NECK: Supple, trachea midline. No JVD or lymphadenopathy. CARDIOVASCULAR: Regular rate and rhythm without murmurs, gallops, or rubs. RESPIRATORY: Breath sounds equal bilaterally. No accessory muscle use. GASTROINTESTINAL: Abdomen soft, non-tender, nondistended. MUSCULOSKELETAL: No cyanosis, or edema. BACK: Nontender without obvious deformity. No CVA tenderness. Laboratory Laboratory Tests Test 01/19/17 18:19 Sodium Level 138 MEQ/L Potassium Level 4.7 MEQ/L Chloride Level 98 MEQ/L Carbon Dioxide Level 34.5 MEQ/L Anion Gap 6 MEQ/L Blood Urea Nitrogen 9 MG/DL Creatinine 0.43 MG/DL Estimat Glomerular Filtration 145 ML/MIN Rate Random Glucose 129 MG/DL Calcium Level 9.0 MG/DL Assessment and Plan Problem List: (1) Acute respiratory insufficiency (2) COPD exacerbation (3) Tobacco abuse (4) History of lung cancer (5) SVT vs afib RVR (6) Free intraperitoneal air (7) History of lobectomy of lung Assessment and Plan 1.) SVT - converted to nsr after dig, continue tele,cont po lopressor and cardizem, ok to dc from cv standpoint, f/u with me in my office alvino, d/w patient Erick Bernard MD Jan 20, 2017 11:45
[2017-01-20] MEDS: FLUCONAZOLE 100 MG TAB PO SCH (11:56)
[2017-01-20] MEDS: LACTOBACILLUS ACIDOPHILUS TAB PO SCH (20:06)
[2017-01-21] VITALS (7 sets, daily range): BP systolic 111–136; BP diastolic 52–66; PULSE 64–88; RESP 16–20; TEMP 97.7–99.1; O2SAT 95–98
[2017-01-21] MEDS: ALBUTEROL SULFATE 90 MCG/ACT HFA 8 GM INHALER INH SCH ×5 (04:00→21:28)
[2017-01-21] MEDS: DILTIAZEM HCL 30 MG TAB PO SCH ×3 (05:54→18:00)
[2017-01-21] MEDS: METOPROLOL TARTRATE 25 MG TAB PO SCH ×3 (05:54→22:59)
[2017-01-21 07:46] LABS: AUTOMATED NEUTROPHIL # 9.6 TH/MM3 (1.8-7.7); BASOPHIL % 0.3 % (0.0-2.0); EOSINOPHIL % 0.2 % (0.0-4.0); HEMATOCRIT 34.2 % (35.0-46.0); HEMO FLAGS DIFF FINAL; LYMPH % 6.4 % (9.0-44.0); LYMPHOCYTE # 0.7 TH/MM3 (1.0-4.8); MEAN CELL VOLUME 105.9 FL (80.0-100.0); MEAN CORPUSCULAR HGB CONC 33.1 % (32.0-36.0); MONO % 8.9 % (0.0-8.0); NEUT % 84.2 % (16.0-70.0); PLATELET COUNT 447 TH/MM3 (150-450); RED BLOOD COUNT 3.23 MIL/MM3 (4.00-5.30); WHITE BLOOD COUNT 11.5 TH/MM3 (4.0-11.0)
[2017-01-21 08:22] LABS: BICARBONATE 35.8 MEQ/L (21.0-32.0); POTASSIUM 3.9 MEQ/L (3.5-5.1)
[2017-01-21] MEDS: SODIUM CHLORIDE 0.9% FLUSH 10 ML FLUSH IVF SCH (09:00)
--- NOTE | 2017-01-21 09:15 | HHI.PR ---
Subjective Subjective Remarks resting in bed tongue sore with blisters, alert, awake No SOB at rest afebrile diarrhea X 1 today, small amount (Kassandra Echols) Review of Systems Constitutional Constitutional: Weakness (improving gradual) Constitutional Remarks 10 Point ROS done. Positives noted. (Kassandra Echols) Throat Throat: Sore Throat (tongue reddened with blisters, yeast ) (Kassandra Echols) Pulmonary Respiratory: Shortness of Breath (none at rest ) (Kassandra Echols) GI/Abdomen GI/Abdominal Exam: Diarrhea (Kassandra Echols) Musculoskeletal MS: Weakness (gradual improvement ) (Kassandra Echols) Integumentary Skin: Rash (tongue) (Kassandra Echols) Psychiatric Psychiatric: Normal Mood (Kassandra Echols) Vitals/Results Intake & Output 01/20/17 01/20/17 01/21/17 15:00 23:00 07:00 Intake Total 360 ml Output Total 700 ml Balance 360 ml -700 ml Intake Oral 360 ml Output Urine Total 700 ml # Voids 2 # Bowel Movements 1 1 Vital Signs Vital Signs Date Time Temp Pulse Resp B/P Pulse Ox O2 Delivery O2 Flow Rate FiO2 01/21/17 04:00 98.1 67 18 111/52 98 01/21/17 00:00 98.5 68 20 120/61 98 01/20/17 22:59 Nasal Cannula 2.00 01/20/17 20:56 69 01/20/17 20:20 98.4 91 18 114/59 98 01/20/17 20:00 98.4 78 18 114/59 98 01/20/17 18:15 Nasal Cannula 2.00 01/20/17 16:10 97.6 60 16 121/59 98 01/20/17 12:55 20 01/20/17 12:00 97.5 74 18 122/64 98 (Kassandra Echols) CBC/BMP: 01/21/17 0718 01/21/17 0718 Lab Results Laboratory Tests Test 01/21/17 07:18 White Blood Count 11.5 TH/MM3 Red Blood Count 3.23 MIL/MM3 Hemoglobin 11.3 GM/DL Hematocrit 34.2 % Mean Corpuscular Volume 105.9 FL Mean Corpuscular Hemoglobin 35.0 PG Mean Corpuscular Hemoglobin 33.1 % Concent Red Cell Distribution Width 15.0 % Platelet Count 447 TH/MM3 Mean Platelet Volume 7.1 FL Neutrophils (%) (Auto) 84.2 % Lymphocytes (%) (Auto) 6.4 % Monocytes (%) (Auto) 8.9 % Eosinophils (%) (Auto) 0.2 % Basophils (%) (Auto) 0.3 % Neutrophils # (Auto) 9.6 TH/MM3 Lymphocytes # (Auto) 0.7 TH/MM3 Monocytes # (Auto) 1.0 TH/MM3 Eosinophils # (Auto) 0.0 TH/MM3 Basophils # (Auto) 0.0 TH/MM3 CBC Comment DIFF FINAL Differential Comment Sodium Level 136 MEQ/L Potassium Level 3.9 MEQ/L Chloride Level 95 MEQ/L Carbon Dioxide Level 35.8 MEQ/L Anion Gap 5 MEQ/L Blood Urea Nitrogen 7 MG/DL Creatinine 0.46 MG/DL Estimat Glomerular Filtration 134 ML/MIN Rate Random Glucose 85 MG/DL Calcium Level 9.4 MG/DL Imaging Remarks Last Impressions Chest X-Ray 01/13/17 0000 Signed Impressions: Service Date/Time: Friday, January 13, 2017 12:20 - CONCLUSION: No significant change with persistent bilateral lower lung zone pulmonary parenchymal opacity suggesting pulmonary edema and bilateral pleural effusions. Alex Rivers MD Upper Extremity Ultrasound 01/12/17 0000 Signed Impressions: Service Date/Time: Thursday, January 12, 2017 22:55 - CONCLUSION: Normal examination. Bryan Lambert MD Abdomen X-Ray 01/09/17 0600 Signed Impressions: Service Date/Time: Monday, January 09, 2017 05:08 - CONCLUSION: Normal examination. Agusto Funes Jr., MD Abdomen/Pelvis CT 01/07/17 0553 Signed Impressions: Service Date/Time: Saturday, January 07, 2017 07:07 - CONCLUSION: 1. There is a small volume of free intraperitoneal air suggestive of perforated bowel. The site of perforation is not identified however. 2. There is also a small volume of free fluid in the abdomen and pelvis with associated peritoneal enhancement. Enhancement of the peritoneum is typically associated with infection, hemorrhage, or malignancy. 3. Nonacute findings include moderate size hiatal hernia, severe atherosclerotic disease, and sigmoid diverticulosis. These findings were discussed with Dr. Chiang via telephone. Joo Mc MD Current Medications Active Medications Fluconazole (Diflucan) 150 mg Q24H PO Last administered on 01/20/17 11:56; Admin Dose 150 MG; Start 01/20/17 at 11:00 Lactobacillus Acidophilus (Lactinex) 1 tab Q12HR PO Last administered on 20:06; Admin Dose 1 TAB; Start 01/20/17 at 21:00 Miscellaneous (Pill Splitter) 1 ea UNSCH PRN OTHER; Start 01/20/17 at 10:45 ( AberdeenKassandra M. BED AND BREAKFAST OPERATOR) Physical Exam General General Appearance: Well Developed, No Acute Distress, Comfortable ([place], Kassandra M. BED AND BREAKFAST OPERATOR) Eyes Eye Exam: Pupils Equal, Pupils Reactive (Aberdeen,Kassandra M. BED AND BREAKFAST OPERATOR) Ears & Nose Ears & Nose Exam: Nasal Mucosa [place] (AberdeenKassandra M. BED AND BREAKFAST OPERATOR) Throat Throat Exam: Oral Mucosa [place] & Moist (A[place]deen,Kassandra M. BED AND BREAKFAST OPERATOR) Neck Neck Exam: Neck Supple (A[place]deen,Kassandra M. BED AND BREAKFAST OPERATOR) Pulmonary Resp Exam: Breath Sounds Equal, No Distress, Decreased Bases (Aberdeen,Kassandra M. BED AND BREAKFAST OPERATOR) Cardiology CV Exam: Regular, Good Perfusion (Kinza,Kassandra M. BED AND BREAKFAST OPERATOR) Gastrointestinal/Abdomen GI Exam: Soft, Bowel Sounds Present, Positive Bowel Movement, Non-Distended ( Kinza,Kassandra M. BED AND BREAKFAST OPERATOR) Musculoskeletal MS Exam: Joints Intact (Aberdeen,Kassandra M. BED AND BREAKFAST OPERATOR) Integumentary Skin Exam: Warm, Dry (Kinza,Kassandra M. BED AND BREAKFAST OPERATOR) Extremeties Extremities Exam: No Edema, Pedal Pulses Palpable (Kinza,Kassandra M. BED AND BREAKFAST OPERATOR) Neurologic Neuro Exam: Alert, Awake, Oriented, Speech Clear, Moving All Extremities, Plant Operator Equal (Kinza,Kassandra M. BED AND BREAKFAST OPERATOR) Psychiatric Psych Exam: Appropriate Responses (AberdeenKassandra M. BED AND BREAKFAST OPERATOR) VTE Prophylaxis VTE Prophylaxis Device: SCDs VTE Prophylaxis Meds: Heparin (AberdeenKassandra M. BED AND BREAKFAST OPERATOR) PUD Prophylasis PUD Prophylaxis: Protonix (Kinza,Kassandra M. BED AND BREAKFAST OPERATOR) Assessment/Plan Problem List: (1) Sigmoid diverticulosis (2) Hiatal hernia (3) Macrocytosis without anemia (4) Acute respiratory insufficiency (5) Free intraperitoneal air (6) COPD exacerbation (7) History of lobectomy of lung (8) History of lung cancer (9) Tobacco abuse (10) probable pna (11) SVT vs afib RVR Assessment/Plan Thrush, oral, Diflucan PO initiated. Still having soreness in her oral cavity, ordered Magic mouthwash when necessary Pt not DM, accuchecks d/c vitals reviewed, stable Probable viscus perf. Non operative treatment diarrhea X 1 today, Probable due to antibiotics, small amount this early a.m. able to eat solid food, appetite fair, affected by oral thrush surgical input appreciated IV antibiotics complete, changed to Levaquin by mouth daily resp.stable PO steroids, DC today Duonebs 01/13-Afib RVR , resolved given Cardizem, Adenosine, Lopressor SR now, stable after digoxin. Will see after DC as OP. stable for now. Diarrhea, neg. cdiff, continue Questran Imodium PRN frequent of stools less, but continue., probable to antibiotic therapy. monitor Heparin for DVT prophylaxis PPI for GI prophylaxis CM for dc planning, [facility], once patient is on PO meds. Possible today or in a.m. Assessment/Plan (Kassandra Echols) Assessment/Plan Again seen and examined [id number] time spent with the patient Patient has moderate abdominal pain after taking medication. On examination there is a positive tenderness in the mid and lower abdomen mild. No rebound or guarding no rigidity. Positive bowel sounds. Plan for CT abdomen as it was discussed before with ID Continue current management Labs and medications reviewed discussed with patient in detail Discussed with RN Plan of care discussed with BED AND BREAKFAST OPERATOR (Talon Garcia MD) Kassandra Echols Jan 21, 2017 09:15 Talon Garcia MD Jan 21, 2017 14:33
[2017-01-21] MEDS: NYSTATIN SUSP 500,000 U/5 ML CUP SWISH-SWAL SCH ×4 (10:06→22:59)
[2017-01-21] MEDS: FOLIC ACID 1 MG TAB PO SCH (10:06)
[2017-01-21] MEDS: LEVOFLOXACIN 500 MG TAB PO SCH (10:06)
[2017-01-21] MEDS: LACTOBACILLUS ACIDOPHILUS TAB PO SCH ×2 (10:06→22:57)
[2017-01-21] MEDS: PANTOPRAZOLE SOD 40 MG DELAYED RELEASE TAB PO SCH ×2 (10:07→22:57)
[2017-01-21] MEDS: CHOLESTYRAMINE 4 GM PACKET PO SCH ×2 (10:07→22:57)
[2017-01-21] MEDS: UMECLIDINIUM 62.5 MCG/VILANTEROL 25 MCG INHALER INH SCH (10:09)
[2017-01-21] MEDS: HEPARIN SODIUM - SQ 10,000 UNITS/ML VIAL SQ SCH ×2 (10:13→22:58)
[2017-01-21] MEDS: NYSTAT/DIPHENHY/LIDO MOUTHWASH (Adult) 120ML SWISH-SWAL SCH ×7 (10:14→22:58)
[2017-01-21] MEDS: FLUCONAZOLE 100 MG TAB PO SCH (11:00)
--- NOTE | 2017-01-21 12:28 | PD.CARD.PN ---
Subjective Subjective Remarks alert in nad Objective Vital Signs / I&O Vital Signs Date Time Temp Pulse Resp B/P Pulse Ox O2 Delivery O2 Flow Rate FiO2 01/21/17 08:00 97.7 64 17 112/59 96 01/21/17 04:00 98.1 67 18 111/52 98 01/21/17 00:00 98.5 68 20 120/61 98 01/20/17 22:59 Nasal Cannula 2.00 01/20/17 20:56 69 01/20/17 20:20 98.4 91 18 114/59 98 01/20/17 20:00 98.4 78 18 114/59 98 01/20/17 18:15 Nasal Cannula 2.00 01/20/17 16:10 97.6 60 16 121/59 98 01/20/17 12:55 20 I/O 01/20/17 01/20/17 01/20/17 01/21/17 01/21/17 01/21/17 07:00 15:00 23:00 07:00 15:00 23:00 Intake Total 100 ml 360 ml Output Total 275 ml 700 ml Balance -175 ml 360 ml -700 ml Intake Oral 100 ml 360 ml Output Urine Total 275 ml 700 ml # Voids 2 # Bowel Movements 0 1 1 Physical Exam GENERAL: SKIN: Warm and dry. HEAD: Normocephalic. EYES: No scleral icterus. No injection or drainage. NECK: Supple, trachea midline. No JVD or lymphadenopathy. CARDIOVASCULAR: Regular rate and rhythm without murmurs, gallops, or rubs. RESPIRATORY: Breath sounds equal bilaterally. No accessory muscle use. GASTROINTESTINAL: Abdomen soft, non-tender, nondistended. MUSCULOSKELETAL: No cyanosis, or edema. BACK: Nontender without obvious deformity. No CVA tenderness. Laboratory Laboratory Tests Test 01/21/17 07:18 White Blood Count 11.5 TH/MM3 Red Blood Count 3.23 MIL/MM3 Hemoglobin 11.3 GM/DL Hematocrit 34.2 % Mean Corpuscular Volume 105.9 FL Mean Corpuscular Hemoglobin 35.0 PG Mean Corpuscular Hemoglobin 33.1 % Concent Red Cell Distribution Width 15.0 % Platelet Count 447 TH/MM3 Mean Platelet Volume 7.1 FL Neutrophils (%) (Auto) 84.2 % Lymphocytes (%) (Auto) 6.4 % Monocytes (%) (Auto) 8.9 % Eosinophils (%) (Auto) 0.2 % Basophils (%) (Auto) 0.3 % Neutrophils # (Auto) 9.6 TH/MM3 Lymphocytes # (Auto) 0.7 TH/MM3 Monocytes # (Auto) 1.0 TH/MM3 Eosinophils # (Auto) 0.0 TH/MM3 Basophils # (Auto) 0.0 TH/MM3 CBC Comment DIFF FINAL Differential Comment Sodium Level 136 MEQ/L Potassium Level 3.9 MEQ/L Chloride Level 95 MEQ/L Carbon Dioxide Level 35.8 MEQ/L Anion Gap 5 MEQ/L Blood Urea Nitrogen 7 MG/DL Creatinine 0.46 MG/DL Estimat Glomerular Filtration 134 ML/MIN Rate Random Glucose 85 MG/DL Calcium Level 9.4 MG/DL Assessment and Plan Problem List: (1) Acute respiratory insufficiency (2) COPD exacerbation (3) Tobacco abuse (4) History of lung cancer (5) SVT vs afib RVR (6) Free intraperitoneal air (7) History of lobectomy of lung Assessment and Plan 1.) SVT - converted to nsr after dig, continue tele,cont po lopressor and cardizem, ok to dc from cv standpoint, f/u with me in my office alvino, d/w patient Erick Bernard MD Jan 21, 2017 12:28
[2017-01-21] MEDS: ACETAMINOPHEN/HYDROcodone 325 MG/5 MG TAB PO PRN ×2 (16:07→23:00)
[2017-01-21] MEDS ORDERED: DIATRIZOATE MEGLUM/DIATRIZOATE SOD 9 ML CUP PO ONE (16:45)
[2017-01-21] MEDS ORDERED: IOHEXOL 350 MG/ML 10 ML VIAL (for RAD DIAG) IV ONE (22:42)
[2017-01-22] VITALS (11 sets, daily range): BP systolic 93–113; BP diastolic 50–57; PULSE 58–96; RESP 16–18; TEMP 97.3–98.4; O2SAT 86–99
[2017-01-22] MEDS: DILTIAZEM HCL 30 MG TAB PO SCH ×4 (01:13→19:18)
[2017-01-22] MEDS: ALBUTEROL SULFATE 90 MCG/ACT HFA 8 GM INHALER INH SCH ×6 (01:13→21:20)
--- NOTE | 2017-01-22 04:47 | RADRPT ---
EXAM DATE/TIME: 01/21/2017 22:31 [place] COMPARISON: CT ABDOMEN & PELVIS W CONTRAST, January 07, 2017, 7:07. INDICATIONS : Abdominal pain with distension. IV CONTRAST: 80 cc Omnipaque 350 (iohexol) IV ORAL CONTRAST: Prescribed oral contrast ingested. RADIATION DOSE: 9.96 CTDIvol (mGy) MEDICAL HISTORY : Hypertension. Carcinoma, lung. SURGICAL HISTORY : Partial lobectomy. ENCOUNTER: Initial ACUITY: 1 day PAIN SCALE: 4/10 LOCATION: Abdomen/pelvis TECHNIQUE: Volumetric scanning of the abdomen and pelvis was performed. Using automated exposure control and ad justment of the mA and/or kV according to patient size, radiation dose was kept as low as reasonably achievable to obtain optimal diagnostic quality images. FINDINGS: LOWER LUNGS: Small bilateral pleural effusions with associated passive atelectasis. A small hiatal hernia. LIVER: Homogeneous density. A few tiny hepatic cysts are observed. There is no dilation of the biliary tree . No calcified gallstones. SPLEEN: Normal size without lesion. PANCREAS: Within normal limits. KIDNEYS: Normal in size and shape. There is no mass, stone or hydronephrosis. ADRENAL GLANDS: Within normal limits. VASCULAR: There is no aortic aneurysm. BOWEL/MESENTERY: The stomach, small bowel, and colon demonstrate no acute abnormality. There is no free intraperitone al air or fluid. There is a C-shaped air structure adjacent to the urinary bladder on the right. This did not change in appearance throughout the delayed imaging. This is felt to be within the lumen of the bowel. No free air or felt present. Scattered colonic diverticuli without acute inflammation. ABDOMINAL WALL: Within normal limits. RETROPERITONEUM: There is no lymphadenopathy. BLADDER: No wall thickening or mass. A small area of intraluminal air noted. REPRODUCTIVE: Within normal limits. INGUINAL: There is no lymphadenopathy or hernia. MUSCULOSKELETAL: Within normal limits for patient age. CONCLUSION: 1. Small bilateral pleural effusions with associated atelectasis. 2. Small hiatal hernia. 3. Colonic diverticulosis without acute inflammation. 4. Small amount of air within the lumen of the urinary bladder. This can be seen in a recent measurem ent patient as well as acute cystitis with gas producing organisms. Agusto Funes Jr., MD on January 22, 2017 at 4:38 Board Certified Radiologist. This report was verified electronically.
[2017-01-22] MEDS: METOPROLOL TARTRATE 25 MG TAB PO SCH ×2 (06:00→21:19)
[2017-01-22 06:17] LABS: HEMATOCRIT 28.9 % (35.0-46.0); MEAN CELL VOLUME 104.3 FL (80.0-100.0); MEAN CORPUSCULAR HEMOGLOBIN 35.8 PG (27.0-34.0); MEAN CORPUSCULAR HGB CONC 34.3 % (32.0-36.0); PLATELET COUNT 393 TH/MM3 (150-450); RED BLOOD COUNT 2.78 MIL/MM3 (4.00-5.30); RED CELL DISTRIBUTION WIDTH 14.8 % (11.6-17.2); REVIEW FLAG FINAL; WHITE BLOOD COUNT 13.2 TH/MM3 (4.0-11.0)
[2017-01-22 06:38] LABS: BICARBONATE 29.6 MEQ/L (21.0-32.0); POTASSIUM 3.8 MEQ/L (3.5-5.1)
[2017-01-22] MEDS: ACETAMINOPHEN/HYDROcodone 325 MG/5 MG TAB PO PRN ×4 (07:00→23:13)
[2017-01-22] MEDS: NYSTAT/DIPHENHY/LIDO MOUTHWASH (Adult) 120ML SWISH-SWAL SCH ×8 (09:00→21:20)
[2017-01-22] MEDS: CHOLESTYRAMINE 4 GM PACKET PO SCH ×2 (09:00→21:00)
[2017-01-22] MEDS: FOLIC ACID 1 MG TAB PO SCH (09:25)
[2017-01-22] MEDS: LACTOBACILLUS ACIDOPHILUS TAB PO SCH ×2 (09:25→21:19)
[2017-01-22] MEDS: PANTOPRAZOLE SOD 40 MG DELAYED RELEASE TAB PO SCH ×2 (09:25→21:19)
[2017-01-22] MEDS: LEVOFLOXACIN 500 MG TAB PO SCH (09:26)
[2017-01-22] MEDS: NYSTATIN SUSP 500,000 U/5 ML CUP SWISH-SWAL SCH ×4 (09:26→21:18)
[2017-01-22] MEDS: UMECLIDINIUM 62.5 MCG/VILANTEROL 25 MCG INHALER INH SCH (09:29)
[2017-01-22] MEDS: HEPARIN SODIUM - SQ 10,000 UNITS/ML VIAL SQ SCH ×2 (09:31→21:19)
--- NOTE | 2017-01-22 10:22 | HHI.PR ---
Subjective Subjective Remarks states still having "liquid stools", 7 to 8 per nursing, very small amount usually when she gets up to void diffuse abd. tenderness, improved from admission anxious about going home no fever no cp no sob on RA, sats pending Review of Systems Constitutional Constitutional Remarks 12 point ROS completed, negative except as noted above Vitals/Results Intake & Output 01/21/17 01/21/17 01/22/17 15:00 23:00 07:00 Intake Total 240 ml 240 ml 240 ml Output Total 300 ml Balance 240 ml 240 ml -60 ml Intake Oral 240 ml 240 ml 240 ml Output Urine Total 300 ml # Voids 3 3 # Bowel Movements 2 2 3 Vital Signs Vital Signs Date Time Temp Pulse Resp B/P Pulse Ox O2 Delivery O2 Flow Rate FiO2 01/22/17 09:02 98 Nasal Cannula 2.00 01/22/17 08:37 98.2 72 18 102/55 98 01/22/17 04:00 97.4 96 18 96/53 97 01/22/17 00:00 97.3 58 18 111/57 96 01/21/17 21:00 98 Nasal Cannula 2.00 01/21/17 20:00 Room Air 2.00 01/21/17 20:00 97.9 74 16 112/58 98 01/21/17 16:00 98.6 74 18 112/57 95 01/21/17 12:00 99.1 88 18 136/66 97 CBC/BMP: 01/22/17 0529 01/22/17 0529 Lab Results Laboratory Tests Test 01/22/17 05:29 White Blood Count 13.2 TH/MM3 Red Blood Count 2.78 MIL/MM3 Hemoglobin 9.9 GM/DL Hematocrit 28.9 % Mean Corpuscular Volume 104.3 FL Mean Corpuscular Hemoglobin 35.8 PG Mean Corpuscular Hemoglobin 34.3 % Concent Red Cell Distribution Width 14.8 % Platelet Count 393 TH/MM3 Mean Platelet Volume 7.3 FL Sodium Level 135 MEQ/L Potassium Level 3.8 MEQ/L Chloride Level 96 MEQ/L Carbon Dioxide Level 29.6 MEQ/L Anion Gap 9 MEQ/L Blood Urea Nitrogen 7 MG/DL Creatinine 0.43 MG/DL Estimat Glomerular Filtration 145 ML/MIN Rate Random Glucose 72 MG/DL Calcium Level 9.3 MG/DL Physical Exam General General Appearance: Well Developed, No Acute Distress, Comfortable Eyes Eye Exam: Pupils Equal, Pupils Reactive Ears & Nose Ears & Nose Exam: Nasal Mucosa [place] Throat Throat Exam: Oral Mucosa [place] & Moist Neck Neck Exam: Neck Supple Pulmonary Resp Exam: Breath Sounds Equal, No Distress, Decreased Bases Cardiology CV Exam: Regular, Good Perfusion Gastrointestinal/Abdomen GI Exam: Soft, Bowel Sounds Present, Positive Bowel Movement, Non-Distended GI Remarks minimally tender Musculoskeletal MS Exam: Joints Intact Integumentary Skin Exam: Warm, Dry Extremeties Extremities Exam: No Edema, Pedal Pulses Palpable Neurologic Neuro Exam: Alert, Awake, Oriented, Speech Clear, Moving All Extremities, Fire Control Technician G Equal Psychiatric Psych Exam: Appropriate Responses VTE Prophylaxis VTE Prophylaxis Device: SCDs VTE Prophylaxis Meds: Heparin PUD Prophylasis PUD Prophylaxis: Protonix Assessment/Plan Problem List: (1) Sigmoid diverticulosis (2) Hiatal hernia (3) Macrocytosis without anemia (4) Acute respiratory insufficiency (5) Free intraperitoneal air (6) COPD exacerbation (7) History of lobectomy of lung (8) History of lung cancer (9) Tobacco abuse (10) probable pna (11) SVT vs afib RVR Assessment/Plan Has thrush continue Magic mouthwash and Diflucan continue with present diet surgical input appreciated non surgical management for now pain management repeat CT abd. 4/5 improved on PO abx leukocytosis persistent, no fever resp. improving off steroids continue abx Duonebs wean off oxygen left arm swelling, check US of left arm r/o DVT-negative 01/13-Afib RVR vs SVT, given Cardizem, Adenosine, Lopressor tx to ICU, CCM consult. Signed off, now transferred back to floor appreciate card input Echo done, EF 50-55, severe tricuspid regurgitation continue with BB, CCB SR now, stable Diarrhea, neg. cdiff continue Questran Imodium PRN frequent stools less amount pt. anxious to go home Heparin for DVT prophylaxis PPI for GI prophylaxis continue with PT, OOB CM for dc planning, HHC maybe tomorrow labs reviewed D/W RN D/W D/ W pt This patient was seen by myself and Dr. Purdy, this note is written on his behalf Rocio AlcalaP Jan 22, 2017 10:22
--- NOTE | 2017-01-22 12:34 | PD.CARD.PN ---
Subjective Subjective Remarks alert in nad Objective Vital Signs / I&O Vital Signs Date Time Temp Pulse Resp B/P Pulse Ox O2 Delivery O2 Flow Rate FiO2 01/22/17 12:04 98.3 82 18 93/54 98 01/22/17 09:02 98 Nasal Cannula 2.00 01/22/17 08:37 98.2 72 18 102/55 98 01/22/17 04:00 97.4 96 18 96/53 97 01/22/17 00:00 97.3 58 18 111/57 96 01/21/17 21:00 98 Nasal Cannula 2.00 01/21/17 20:00 Room Air 2.00 01/21/17 20:00 97.9 74 16 112/58 98 01/21/17 16:00 98.6 74 18 112/57 95 I/O 01/21/17 01/21/17 01/21/17 01/22/17 01/22/17 01/22/17 07:00 15:00 23:00 07:00 15:00 23:00 Intake Total 240 ml 240 ml 240 ml Output Total 700 ml 300 ml Balance -700 ml 240 ml 240 ml -60 ml Intake Oral 240 ml 240 ml 240 ml Output Urine Total 700 ml 300 ml # Voids 3 3 # Bowel Movements 1 2 2 3 Physical Exam GENERAL: SKIN: Warm and dry. HEAD: Normocephalic. EYES: No scleral icterus. No injection or drainage. NECK: Supple, trachea midline. No JVD or lymphadenopathy. CARDIOVASCULAR: Regular rate and rhythm without murmurs, gallops, or rubs. RESPIRATORY: Breath sounds equal bilaterally. No accessory muscle use. GASTROINTESTINAL: Abdomen soft, non-tender, nondistended. MUSCULOSKELETAL: No cyanosis, or edema. BACK: Nontender without obvious deformity. No CVA tenderness. Laboratory Laboratory Tests Test 01/22/17 05:29 White Blood Count 13.2 TH/MM3 Red Blood Count 2.78 MIL/MM3 Hemoglobin 9.9 GM/DL Hematocrit 28.9 % Mean Corpuscular Volume 104.3 FL Mean Corpuscular Hemoglobin 35.8 PG Mean Corpuscular Hemoglobin 34.3 % Concent Red Cell Distribution Width 14.8 % Platelet Count 393 TH/MM3 Mean Platelet Volume 7.3 FL Sodium Level 135 MEQ/L Potassium Level 3.8 MEQ/L Chloride Level 96 MEQ/L Carbon Dioxide Level 29.6 MEQ/L Anion Gap 9 MEQ/L Blood Urea Nitrogen 7 MG/DL Creatinine 0.43 MG/DL Estimat Glomerular Filtration 145 ML/MIN Rate Random Glucose 72 MG/DL Calcium Level 9.3 MG/DL Assessment and Plan Problem List: (1) Acute respiratory insufficiency (2) COPD exacerbation (3) Tobacco abuse (4) History of lung cancer (5) SVT vs afib RVR (6) Free intraperitoneal air (7) History of lobectomy of lung Assessment and Plan 1.) SVT - converted to nsr after dig, continue tele,cont po lopressor and cardizem, ok to dc from cv standpoint, f/u with me in my office alvino, d/w patient Erick Bernard MD Jan 22, 2017 12:34
[2017-01-22] MEDS: FLUCONAZOLE 100 MG TAB PO SCH (12:50)
--- NOTE | 2017-01-22 17:35 | HHI.IDPN ---
Subjective Subjective Remarks cont to have very liquid diarrhea 6- 8 BMs/d; .diff negative 2/2 including one from today no abd pain no fever WBC went up Antibiotics levaquin flagyl Allergies: Coded Allergies: Azithromycin (Verified Allergy, Severe, Anaphylaxis, 01/07/17) Objective . Vital Signs Date Time Temp Pulse Resp B/P Pulse Ox O2 Delivery O2 Flow Rate FiO2 01/22/17 16:01 98.1 85 18 102/50 99 01/22/17 13:19 98 Nasal Cannula 2.00 01/22/17 12:10 2.00 01/22/17 12:10 86 21 01/22/17 12:04 98.3 82 18 93/54 98 01/22/17 09:02 98 Nasal Cannula 2.00 01/22/17 08:37 98.2 72 18 102/55 98 01/22/17 04:00 97.4 96 18 96/53 97 01/22/17 00:00 97.3 58 18 111/57 96 01/21/17 21:00 98 Nasal Cannula 2.00 01/21/17 20:00 Room Air 2.00 01/21/17 20:00 97.9 74 16 112/58 98 01/21/17 01/21/17 01/22/17 15:00 23:00 07:00 Intake Total 240 ml 240 ml 240 ml Output Total 300 ml Balance 240 ml 240 ml -60 ml Intake Oral 240 ml 240 ml 240 ml Output Urine Total 300 ml # Voids 3 3 # Bowel Movements 2 2 3 . Laboratory Tests Test 01/21/17 01/22/17 07:18 05:29 White Blood Count 11.5 TH/MM3 13.2 TH/MM3 Red Blood Count 3.23 MIL/MM3 2.78 MIL/MM3 Hemoglobin 11.3 GM/DL 9.9 GM/DL Hematocrit 34.2 % 28.9 % Mean Corpuscular Volume 105.9 FL 104.3 FL Mean Corpuscular Hemoglobin 35.0 PG 35.8 PG Mean Corpuscular Hemoglobin 33.1 % 34.3 % Concent Red Cell Distribution Width 15.0 % 14.8 % Platelet Count 447 TH/MM3 393 TH/MM3 Mean Platelet Volume 7.1 FL 7.3 FL Neutrophils (%) (Auto) 84.2 % Lymphocytes (%) (Auto) 6.4 % Monocytes (%) (Auto) 8.9 % Eosinophils (%) (Auto) 0.2 % Basophils (%) (Auto) 0.3 % Neutrophils # (Auto) 9.6 TH/MM3 Lymphocytes # (Auto) 0.7 TH/MM3 Monocytes # (Auto) 1.0 TH/MM3 Eosinophils # (Auto) 0.0 TH/MM3 Basophils # (Auto) 0.0 TH/MM3 CBC Comment DIFF FINAL Differential Comment Laboratory Tests Test 01/21/17 01/22/17 07:18 05:29 Sodium Level 136 MEQ/L 135 MEQ/L Potassium Level 3.9 MEQ/L 3.8 MEQ/L Chloride Level 95 MEQ/L 96 MEQ/L Carbon Dioxide Level 35.8 MEQ/L 29.6 MEQ/L Anion Gap 5 MEQ/L 9 MEQ/L Blood Urea Nitrogen 7 MG/DL 7 MG/DL Creatinine 0.46 MG/DL 0.43 MG/DL Estimat Glomerular Filtration 134 ML/MIN 145 ML/MIN Rate Random Glucose 85 MG/DL 72 MG/DL Calcium Level 9.4 MG/DL 9.3 MG/DL Imaging Last Impressions Abdomen/Pelvis CT 01/21/17 0000 Signed Impressions: Service Date/Time: Saturday, January 21, 2017 22:31 - CONCLUSION: 1. Small bilateral pleural effusions with associated atelectasis. 2. Small hiatal hernia. 3. Colonic diverticulosis without acute inflammation. 4. Small amount of air within the lumen of the urinary bladder. This can be seen in a recent measurement patient as well as acute cystitis with gas producing organisms. Agusto Funes Jr., MD Chest X-Ray 01/13/17 0000 Signed Impressions: Service Date/Time: Friday, January 13, 2017 12:20 - CONCLUSION: No significant change with persistent bilateral lower lung zone pulmonary parenchymal opacity suggesting pulmonary edema and bilateral pleural effusions. Alex Rivers MD Upper Extremity Ultrasound 01/12/17 0000 Signed Impressions: Service Date/Time: Thursday, January 12, 2017 22:55 - CONCLUSION: Normal examination. Bryan Lambert MD Abdomen X-Ray 01/09/17 0600 Signed Impressions: Service Date/Time: Monday, January 09, 2017 05:08 - CONCLUSION: Normal examination. Agusto Funes Jr., MD Physical Exam CONSTITUTIONAL/GENERAL: This is a thin frail elderly patient, in no apparent distress. TUBES/LINES/DRAINS: SKIN: No jaundice, rashes, or lesions EYES: No scleral icterus. CARDIOVASCULAR: Regular rate and rhythm without murmurs, gallops, or rubs. No JVD. Peripheral pulses symmetric. RESPIRATORY/CHEST: Symmetric, unlabored respirations. Clear to auscultation. Breath sounds very diminished bilaterally. GASTROINTESTINAL: Abdomen soft, non-tender, not distended. No hepato- splenomegaly, or palpable masses. No guarding. Bowel sounds present. MUSCULOSKELETAL: Extremities without clubbing, cyanosis, or edema. No mottling NEUROLOGICAL: Awake and alert. non focal; normal speech PSYCHIATRIC: No obvious anxiety/depression. no apparent hallucinations or other psychotic thought process. Assessment & Plan Remarks sp viscus perforation, tolerating non-op treatment Anaerobic sepsis - likely 2/2 viscus perf: prevotella, bacteroides Diarrea, abx associated, C.diff negative; persistent Unstabel 2/2 AVR Afib, no e/o ongoing sepsis physiology Leukocytosis - worsening Small amount of air within the lumen of the urinary bladder. dc abx rechk stool for c.diff - rechk UA, C+S fu WBC dw RN Graciela Bernard MD Jan 22, 2017 17:35
[2017-01-22] MEDS: SODIUM CHLORIDE 0.9% FLUSH 5 ML FLUSH IV FLUSH SCH (21:00)
[2017-01-23] VITALS (7 sets, daily range): BP systolic 97–160; BP diastolic 49–77; PULSE 66–89; RESP 16–20; TEMP 97.9–98.5; O2SAT 95–99
[2017-01-23] MEDS: ALBUTEROL SULFATE 90 MCG/ACT HFA 8 GM INHALER INH SCH ×4 (00:58→11:34)
[2017-01-23] MEDS: DILTIAZEM HCL 30 MG TAB PO SCH ×3 (00:58→11:33)
[2017-01-23] MEDS: ACETAMINOPHEN/HYDROcodone 325 MG/5 MG TAB PO PRN ×2 (06:00→11:37)
[2017-01-23 07:34] LABS: AUTOMATED NEUTROPHIL # 8.3 TH/MM3 (1.8-7.7); BASOPHIL % 0.2 % (0.0-2.0); EOSINOPHIL % 0.3 % (0.0-4.0); HEMATOCRIT 28.4 % (35.0-46.0); LYMPH % 7.6 % (9.0-44.0); LYMPHOCYTE # 0.8 TH/MM3 (1.0-4.8); MEAN CELL VOLUME 103.5 FL (80.0-100.0); MEAN CORPUSCULAR HEMOGLOBIN 36.4 PG (27.0-34.0); MEAN CORPUSCULAR HGB CONC 35.2 % (32.0-36.0); MONO % 8.1 % (0.0-8.0); NEUT % 83.8 % (16.0-70.0); PLATELET COUNT 367 TH/MM3 (150-450); RED BLOOD COUNT 2.74 MIL/MM3 (4.00-5.30); RED CELL DISTRIBUTION WIDTH 14.9 % (11.6-17.2); WHITE BLOOD COUNT 9.9 TH/MM3 (4.0-11.0)
[2017-01-23 07:40] LABS: BICARBONATE 31.3 MEQ/L (21.0-32.0); POTASSIUM 3.7 MEQ/L (3.5-5.1)
[2017-01-23 07:42] LABS: HEMO FLAGS AUTO DIFF
[2017-01-23 08:54] LABS: BANDS 8 % (0-6); MYELOCYTES 1 % (0-0); NEUTROPHIL # MANUAL DIFF 8.4 TH/MM3 (1.8-7.7); PLATELET ESTIMATE SMEAR NORMAL (NORMAL); PLATELET MORPHOLOGY NORMAL (NORMAL); POLYS (SEG NEUTROPHILS) 76 % (16-70); SCAN/DIFF FINAL DIFF MANUAL; WBC DIFF SAMPLE 100
[2017-01-23] MEDS: CHOLESTYRAMINE 4 GM PACKET PO SCH (09:00)
[2017-01-23] MEDS: SODIUM CHLORIDE 0.9% FLUSH 10 ML FLUSH IVF SCH (09:00)
[2017-01-23] MEDS: SODIUM CHLORIDE 0.9% FLUSH 5 ML FLUSH IV FLUSH SCH (09:00)
[2017-01-23] MEDS: METOPROLOL TARTRATE 25 MG TAB PO SCH (09:00)
[2017-01-23] MEDS: NYSTAT/DIPHENHY/LIDO MOUTHWASH (Adult) 120ML SWISH-SWAL SCH ×4 (09:00→15:06)
[2017-01-23] MEDS: PANTOPRAZOLE SOD 40 MG DELAYED RELEASE TAB PO SCH (09:12)
[2017-01-23] MEDS: HEPARIN SODIUM - SQ 10,000 UNITS/ML VIAL SQ SCH (09:12)
[2017-01-23] MEDS: FOLIC ACID 1 MG TAB PO SCH (09:12)
[2017-01-23] MEDS: LACTOBACILLUS ACIDOPHILUS TAB PO SCH (09:12)
[2017-01-23] MEDS: NYSTATIN SUSP 500,000 U/5 ML CUP SWISH-SWAL SCH ×2 (09:13→15:06)
[2017-01-23] MEDS: UMECLIDINIUM 62.5 MCG/VILANTEROL 25 MCG INHALER INH SCH (09:16)
--- NOTE | 2017-01-23 10:17 | HHI.PR ---
Subjective Subjective Remarks small amount of stool minimal abd. pain no fever tolerating diet anxious to go home doesn't use oxygen at home Review of Systems Constitutional Constitutional Remarks 12 point ROS completed, negative except as noted above Vitals/Results Intake & Output 01/22/17 01/22/17 01/23/17 15:00 23:00 07:00 Intake Total 480 ml 240 ml 120 ml Balance 480 ml 240 ml 120 ml Intake Oral 480 ml 240 ml 120 ml # Voids 3 2 11 # Bowel Movements 1 11 Vital Signs Vital Signs Date Time Temp Pulse Resp B/P Pulse Ox O2 Delivery O2 Flow Rate FiO2 01/23/17 08:00 97.9 67 18 97/51 99 01/23/17 04:01 98.5 71 20 101/49 98 01/23/17 00:00 98.5 89 16 141/60 98 01/22/17 20:43 99 Nasal Cannula 2.00 01/22/17 20:15 Nasal Cannula 2.00 01/22/17 20:00 98.4 84 16 113/ 99 01/22/17 16:01 98.1 85 18 102/50 99 01/22/17 13:19 98 Nasal Cannula 2.00 01/22/17 12:10 2.00 01/22/17 12:10 86 21 01/22/17 12:04 98.3 82 18 93/54 98 CBC/BMP: 01/23/17 0652 01/23/17 0652 Lab Results Laboratory Tests Test 01/23/17 06:52 White Blood Count 9.9 TH/MM3 Red Blood Count 2.74 MIL/MM3 Hemoglobin 10.0 GM/DL Hematocrit 28.4 % Mean Corpuscular Volume 103.5 FL Mean Corpuscular Hemoglobin 36.4 PG Mean Corpuscular Hemoglobin 35.2 % Concent Red Cell Distribution Width 14.9 % Platelet Count 367 TH/MM3 Mean Platelet Volume 7.4 FL Neutrophils (%) (Auto) 83.8 % Lymphocytes (%) (Auto) 7.6 % Monocytes (%) (Auto) 8.1 % Eosinophils (%) (Auto) 0.3 % Basophils (%) (Auto) 0.2 % Neutrophils # (Auto) 8.3 TH/MM3 Lymphocytes # (Auto) 0.8 TH/MM3 Monocytes # (Auto) 0.8 TH/MM3 Eosinophils # (Auto) 0.0 TH/MM3 Basophils # (Auto) 0.0 TH/MM3 CBC Comment AUTO DIFF Differential Total Cells 100 Counted Neutrophils % (Manual) 76 % Band Neutrophils % 8 % Lymphocytes % 7 % Monocytes % 8 % Neutrophils # (Manual) 8.4 TH/MM3 Myelocytes 1 % Differential Comment FINAL DIFF MANUAL Platelet Estimate NORMAL Platelet Morphology Comment NORMAL Sodium Level 136 MEQ/L Potassium Level 3.7 MEQ/L Chloride Level 99 MEQ/L Carbon Dioxide Level 31.3 MEQ/L Anion Gap 6 MEQ/L Blood Urea Nitrogen 7 MG/DL Creatinine 0.51 MG/DL Estimat Glomerular Filtration 119 ML/MIN Rate Random Glucose 119 MG/DL Calcium Level 8.9 MG/DL Physical Exam General General Appearance: Well Developed, No Acute Distress, Comfortable Eyes Eye Exam: Pupils Equal, Pupils Reactive Ears & Nose Ears & Nose Exam: Nasal Mucosa Intercourse Throat Throat Exam: Oral Mucosa Intercourse & Moist Neck Neck Exam: Neck Supple Pulmonary Resp Exam: Breath Sounds Equal, No Distress, Decreased Bases Resp Remarks mild exp. wheeze Cardiology CV Exam: Regular, Good Perfusion Gastrointestinal/Abdomen GI Exam: Soft, Bowel Sounds Present, Positive Bowel Movement, Non-Distended GI Remarks minimally tender Musculoskeletal MS Exam: Joints Intact Integumentary Skin Exam: Warm, Dry Extremeties Extremities Exam: No Edema, Pedal Pulses Palpable Neurologic Neuro Exam: Alert, Awake, Oriented, Speech Clear, Moving All Extremities, Backend Developer Equal Psychiatric Psych Exam: Appropriate Responses VTE Prophylaxis VTE Prophylaxis Device: SCDs VTE Prophylaxis Meds: Heparin PUD Prophylasis PUD Prophylaxis: Protonix Assessment/Plan Problem List: (1) Sigmoid diverticulosis (2) Hiatal hernia (3) Macrocytosis without anemia (4) Acute respiratory insufficiency (5) Free intraperitoneal air (6) COPD exacerbation (7) History of lobectomy of lung (8) History of lung cancer (9) Tobacco abuse (10) probable pna (11) SVT vs afib RVR Assessment/Plan Has thrush continue Magic mouthwash and Diflucan continue with present diet surgical input appreciated non surgical management for now pain management repeat CT abd. 4/5 improved abx stopped /7 per ID per ID, hold dc until today, repeated stool for cdiff, ua/uc-currently pending WBC better today, 9.9 no fever resp. improving off steroids continue abx Duonebs walk test left arm swelling, check US of left arm r/o DVT-negative 01/13-Afib RVR vs SVT, given Cardizem, Adenosine, Lopressor tx to ICU, CCM consult. Signed off, now transferred back to floor appreciate card input Echo done, EF 50-55, severe tricuspid regurgitation continue with BB, CCB SR now, stable BB decreased due to low bp Diarrhea, neg. cdiff continue Questran Imodium PRN diarrhea improved, less amount Heparin for DVT prophylaxis PPI for GI prophylaxis continue with PT, OOB CM for dc planning, [facility] walk test Plan to discharge this afternoon, f/u UC and stool results F/U PCP 1 week Diet -soft Activity-as tolerated Rocio Alcala SEED SPECIALIST Jan 23, 2017 10:17
--- NOTE | 2017-01-23 10:18 | HHI.DS ---
Discharge Summary Admission Date Jan 07, 2017 at 08:04 Discharge Date: Jan 23, 2017 Admitting Diagnosis perforated viscus (1) Free intraperitoneal air (2) Acute respiratory insufficiency (3) Hiatal hernia (4) Tobacco abuse (5) COPD exacerbation (6) History of lung cancer (7) Macrocytosis without anemia (8) Sigmoid diverticulosis (9) probable pna (10) SVT vs afib RVR (11) History of lobectomy of lung CBC/BMP: 01/23/17 0652 01/23/17 0652 Significant Findings Laboratory Tests Test 01/21/17 01/22/17 01/23/17 07:18 05:29 06:52 White Blood Count 11.5 TH/MM3 13.2 TH/MM3 (4.0-11.0) (4.0-11.0) Red Blood Count 3.23 MIL/MM3 2.78 MIL/MM3 2.74 MIL/MM3 (4.00-5.30) (4.00-5.30) (4.00-5.30) Hemoglobin 11.3 GM/DL 9.9 GM/DL 10.0 GM/DL (11.6-15.3) (11.6-15.3) (11.6-15.3) Hematocrit 34.2 % 28.9 % 28.4 % (35.0-46.0) (35.0-46.0) (35.0-46.0) Mean Corpuscular Volume 105.9 FL 104.3 FL 103.5 FL (80.0-100.0) (80.0-100.0) (80.0-100.0) Mean Corpuscular Hemoglobin 35.0 PG 35.8 PG 36.4 PG (27.0-34.0) (27.0-34.0) (27.0-34.0) Neutrophils (%) (Auto) 84.2 % 83.8 % (16.0-70.0) (16.0-70.0) Lymphocytes (%) (Auto) 6.4 % 7.6 % (9.0-44.0) (9.0-44.0) Monocytes (%) (Auto) 8.9 % (0.0-8.0) 8.1 % (0.0-8.0) Neutrophils # (Auto) 9.6 TH/MM3 8.3 TH/MM3 (1.8-7.7) (1.8-7.7) Lymphocytes # (Auto) 0.7 TH/MM3 0.8 TH/MM3 (1.0-4.8) (1.0-4.8) Monocytes # (Auto) 1.0 TH/MM3 (0-0.9) Chloride Level 95 MEQ/L 96 MEQ/L (98-107) (98-107) Carbon Dioxide Level 35.8 MEQ/L (21.0-32.0) Creatinine 0.46 MG/DL 0.43 MG/DL (0.50-1.00) (0.50-1.00) Sodium Level 135 MEQ/L (136-145) Random Glucose 72 MG/DL 119 MG/DL (74-106) (74-106) Neutrophils % (Manual) 76 % (16-70) Band Neutrophils % 8 % (0-6) Lymphocytes % 7 % (9-44) Neutrophils # (Manual) 8.4 TH/MM3 (1.8-7.7) Myelocytes 1 % (0-0) Imaging Last Impressions Abdomen/Pelvis CT 01/21/17 0000 Signed Impressions: Service Date/Time: Saturday, January 21, 2017 22:31 - CONCLUSION: 1. Small bilateral pleural effusions with associated atelectasis. 2. Small hiatal hernia. 3. Colonic diverticulosis without acute inflammation. 4. Small amount of air within the lumen of the urinary bladder. This can be seen in a recent measurement patient as well as acute cystitis with gas producing organisms. Agusto Funes Jr., MD Chest X-Ray 01/13/17 0000 Signed Impressions: Service Date/Time: Friday, January 13, 2017 12:20 - CONCLUSION: No significant change with persistent bilateral lower lung zone pulmonary parenchymal opacity suggesting pulmonary edema and bilateral pleural effusions. Alex Rivers MD Upper Extremity Ultrasound 01/12/17 0000 Signed Impressions: Service Date/Time: Thursday, January 12, 2017 22:55 - CONCLUSION: Normal examination. Bryan Lambert MD Abdomen X-Ray 01/09/17 0600 Signed Impressions: Service Date/Time: Monday, January 09, 2017 05:08 - CONCLUSION: Normal examination. 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 The patient initially went to the [facility] approximately at 09:00 p.m. on the with acute onset of abdominal pain. According to the record, she graded this pain as a 10/10 and described it as a sharp stabbing pain. The patient received a CT which did show free air and free fluid within the abdomen and sigmoid diverticulosis. The patient was sent to [facility] for continuum of care, received a surgical consult for their expert opinion. Infectious disease was also consulted for expert opinion on IV antibiotic management. The patient initially was placed on a clear liquid diet and had labs that were monitored and treated for any abnormals. No surgical intervention was required. Patient was initially admitted to the critical care unit. She was been treated for possible pneumonia. Hospitalist services were eventually consulted to resume medical management. Final diagnoses were: (1) Sigmoid diverticulosis (2) Hiatal hernia (3) Macrocytosis without anemia (4) Acute respiratory insufficiency (5) Free intraperitoneal air (6) COPD exacerbation (7) History of lobectomy of lung (8) History of lung cancer (9) Tobacco abuse (10) probable pna (11) SVT vs afib RVR During the course of the hospitalization, the following took place: After patient was transferred from critical care services and from ICU, she had a prolonged hospitalization due to continued abdominal pain, shortness of breath , develop A. fib with RVR, diarrhea. Surgery continue to follow patient, nonoperative management was recommended Diet was advanced slowly Patient was continued on antibiotics She complained of abdominal pain which was treated with narcotics. She developed thrush, was getting magic mouthwash and Diflucan Patient did develop some diarrhea and had persistent abdominal tenderness. Had a repeat CT of the abdomen on 01/21, no acute findings were noted, no inflammation Antibiotics were stopped on January 23, 2017. WBC came down to normal 9.9 Cultures were continued to be followed, positive for Prevotella species and gram -positive cocci, bacteroides uniformis. Patient did have repeat stool studies, remained negative for C. difficile Questran was initiated as well as Imodium The amount of liquid stool diminished, patient tolerated diet well, no nausea no vomiting Patient did require oxygen and was put on DuoNeb's as well as steroid. A walk test was ordered, patient did require oxygen upon discharge in this was arranged per case management. On 01/13-patient went into Afib RVR vs SVT, given Cardizem, Adenosine, Lopressor tx to ICU, CCM consulted. Patient was evaluated by cardiology, remained in the ICU for a few days then eventually was transferred back to the floor. Cardiology did ordered a VQ scan to evaluate for pulmonary hypertension, negative for PE, positive for COPD changes. Echo done, EF 50-55, severe tricuspid regurgitation continued with BB, CCB Patient converted back to sinus rhythm. Diarrhea, neg. cdiff continue Questran Imodium PRN diarrhea improved, less amount Patient eventually improve, was able to tolerate diet, leukocytosis improved. No fever. Was cleared for discharge by consultants. Patient was discharged home in stable condition with home health care Oxygen was arranged Instructed to follow-up with primary care physician and cardiology Diet as tolerated Activity as tolerated Pt Condition on Discharge: Stable Discharge Disposition: Disch w/ Home Health Serv Discharge Instructions DIET: Follow Instructions for: Heart Healthy Diet Speech Therapy-Diet Recommends: Regular Activities you can perform: Weight Bearing as Shandra Follow up Referrals: PCP Follow-up SNF/[facility] with [facility] New Medications: Diltiazem CD 24 HR (Cardizem CD 24 HR) 120 Mg Caper 120 MG PO DAILY atrial fibrillation #30 Ref 0 CAP Oxygen tank (Oxygen tank) 1 Ea Tank 2 LITER CALISTA.Oct[employer] Lending CONTINUOUS Oxygen Concentrator Portable Gaseous 2 L/min via Nasal Cannula Continuous For 99 months HYPOXEMIA PREVENTION #1 CYLINDER Cholestyramine (Cholestyramine) 4 Gm/Pkt Powd 8 GM PO BID diarrhea #60 PACK Loperamide (Loperamide) 2 Mg Tab 2 MG PO Q6H PRN DIARRHEA #30 TAB Metoprolol Tartrate (Metoprolol Tartrate) 25 Mg Tab 12.5 MG PO BID atrial fibrillation #30 Ref 1 TAB Continued Medications: Umeclidinium-Vilanterol Inh (Anoro Ellipta Inh) 62.5-25 Mcg/Act Aero 1 PUFF INH DAILY COPD #1 Ref 0 INHALER Discontinued Medications: Amlodipine (Amlodipine) 5 Mg Tab 5 MG PO DAILY Blood Pressure Management #30 Ref 0 TAB Losartan (Losartan) 25 Mg Tab 25 MG PO DAILY Blood Pressure Management #30 Ref 0 TAB Rocio Alcala Jan 23, 2017 10:18
[2017-01-23] MEDS ORDERED: LOPE2TAB PO (10:21)
[2017-01-23] MEDS ORDERED: CHOL4POW4 PO (10:21)
[2017-01-23] MEDS ORDERED: METO25TA3 PO (10:21)
[2017-01-23] MEDS ORDERED: CARD120C4 PO (10:21)
[2017-01-23] MEDS ORDERED: OXYGENTANK NAS.CANULA (11:19)
[2017-01-23] MEDS: FLUCONAZOLE 100 MG TAB PO SCH (11:33)
--- NOTE | 2017-01-23 12:10 | PD.CARD.PN ---
Subjective Subjective Remarks alert in nad Objective Vital Signs / I&O Vital Signs Date Time Temp Pulse Resp B/P Pulse Ox O2 Delivery O2 Flow Rate FiO2 01/23/17 12:10 98 Nasal Cannula 2.00 01/23/17 10:40 2.00 01/23/17 08:00 97.9 67 18 97/51 99 01/23/17 08:00 Nasal Cannula 2.00 01/23/17 08:00 66 01/23/17 04:01 98.5 71 20 101/49 98 01/23/17 00:00 98.5 89 16 141/60 98 01/22/17 20:43 99 Nasal Cannula 2.00 01/22/17 20:15 Nasal Cannula 2.00 01/22/17 20:00 98.4 84 16 113/ 99 01/22/17 16:01 98.1 85 18 102/50 99 01/22/17 13:19 98 Nasal Cannula 2.00 I/O 01/22/17 01/22/17 01/22/17 01/23/17 01/23/17 01/23/17 07:00 15:00 23:00 07:00 15:00 23:00 Intake Total 240 ml 480 ml 240 ml 120 ml Output Total 300 ml Balance -60 ml 480 ml 240 ml 120 ml Intake Oral 240 ml 480 ml 240 ml 120 ml Output Urine Total 300 ml # Voids 3 2 11 # Bowel Movements 3 1 11 Physical Exam GENERAL: SKIN: Warm and dry. HEAD: Normocephalic. EYES: No scleral icterus. No injection or drainage. NECK: Supple, trachea midline. No JVD or lymphadenopathy. CARDIOVASCULAR: Regular rate and rhythm without murmurs, gallops, or rubs. RESPIRATORY: Breath sounds equal bilaterally. No accessory muscle use. GASTROINTESTINAL: Abdomen soft, non-tender, nondistended. MUSCULOSKELETAL: No cyanosis, or edema. BACK: Nontender without obvious deformity. No CVA tenderness. Laboratory Laboratory Tests Test 01/23/17 06:52 White Blood Count 9.9 TH/MM3 Red Blood Count 2.74 MIL/MM3 Hemoglobin 10.0 GM/DL Hematocrit 28.4 % Mean Corpuscular Volume 103.5 FL Mean Corpuscular Hemoglobin 36.4 PG Mean Corpuscular Hemoglobin 35.2 % Concent Red Cell Distribution Width 14.9 % Platelet Count 367 TH/MM3 Mean Platelet Volume 7.4 FL Neutrophils (%) (Auto) 83.8 % Lymphocytes (%) (Auto) 7.6 % Monocytes (%) (Auto) 8.1 % Eosinophils (%) (Auto) 0.3 % Basophils (%) (Auto) 0.2 % Neutrophils # (Auto) 8.3 TH/MM3 Lymphocytes # (Auto) 0.8 TH/MM3 Monocytes # (Auto) 0.8 TH/MM3 Eosinophils # (Auto) 0.0 TH/MM3 Basophils # (Auto) 0.0 TH/MM3 CBC Comment AUTO DIFF Differential Total Cells 100 Counted Neutrophils % (Manual) 76 % Band Neutrophils % 8 % Lymphocytes % 7 % Monocytes % 8 % Neutrophils # (Manual) 8.4 TH/MM3 Myelocytes 1 % Differential Comment FINAL DIFF MANUAL Platelet Estimate NORMAL Platelet Morphology Comment NORMAL Sodium Level 136 MEQ/L Potassium Level 3.7 MEQ/L Chloride Level 99 MEQ/L Carbon Dioxide Level 31.3 MEQ/L Anion Gap 6 MEQ/L Blood Urea Nitrogen 7 MG/DL Creatinine 0.51 MG/DL Estimat Glomerular Filtration 119 ML/MIN Rate Random Glucose 119 MG/DL Calcium Level 8.9 MG/DL Assessment and Plan Problem List: (1) Acute respiratory insufficiency (2) COPD exacerbation (3) Tobacco abuse (4) History of lung cancer (5) SVT vs afib RVR (6) Free intraperitoneal air (7) History of lobectomy of lung Assessment and Plan 1.) SVT - converted to nsr after dig, continue tele,cont po lopressor and cardizem, ok to dc from cv standpoint, f/u with me in my office alvino, d/w patient 2.) pulmonary htn - check vq Erick Bernard MD Jan 23, 2017 12:10
--- NOTE | 2017-01-23 15:04 | RADRPT ---
EXAM DATE/TIME: 01/23/2017 13:44 [facility] COMPARISON: CHEST SINGLE AP, January 23, 2017, 14:49. INDICATIONS : Shortness of breath. DOSE: 8.1 mCi Tc99m MAA IV 0.9 mCi Tc99m DTPA aerosol MEDICAL HISTORY : Chronic obstructive pulmonary disease. Hypertension. Carcinoma, lung. Current smoker. SURGICAL HISTORY : Lobectomy. ENCOUNTER: Initial ACUITY: 1 day PAIN SCALE: 3/10 LOCATION: Bilateral upper chest TECHNIQUE: Following five minutes of tidal breathing of DTPA aerosol, planar images of the lungs were performed in eight projections. The patient was then injected with MAA, and eight-view perfusion scan was perf ormed. FINDINGS: The examination demonstrates patchy segmental perfusion abnormality involving nearly the entire right upper lobe. There is a matching ventilatory abnormality. There is a corresponding large emphysematou s bleb on the patient's chest x-ray. No other significant perfusion defect is identified. The ventilatory portion of the examination demonstrates patchy ventilatory abnormalities with central deposition of tracer suggesting COPD. CONCLUSION: 1. Low probability for pulmonary embolus. 2. Chest x-ray and ventilatory portion of the examination suggests advanced COPD. Miles Mathew MD on January 23, 2017 at 15:00 Board Certified Radiologist. This report was verified electronically.
--- NOTE | 2017-01-23 16:36 | RADRPT ---
EXAM DATE/TIME: 01/23/2017 14:49 [facility] COMPARISON: CHEST SINGLE AP, January 13, 2017, 12:20. INDICATIONS : Patient has been short of breath and has abdominal pain. MEDICAL HISTORY : Emphysema. Hypertension. Chronic obstructive pulmonary disease. Left lung cancer. SURGICAL HISTORY : Left upper lung lobectomy. ENCOUNTER: Initial ACUITY: 1 week PAIN SCORE: 0/10 LOCATION: Bilateral chest FINDINGS: Marked hyperinflation and emphysematous changes are noted. There is blunting of the right and left c ostophrenic sulci. The heart is small and tubular. There is no pneumothorax. CONCLUSION: Marked hyperinflation with significant emphysematous changes. Marcus Mathew MD FACR on January 23, 2017 at 15:03 Board Certified Radiologist. This report was verified electronically.
--- NOTE | 2017-01-25 14:29 | PQ ---
Physician Query Response Document PATIENT: TAYLOR NORRIS : 1945 ADMIT DATE: 01/07/2017 8:04 AM DISCH DATE: 01/23/2017 4:56 PM RESPONDING PROVIDER #: caprice QUERY TEXT: Sepsis Query Based on your medical judgement, can you further clarify the folowiin. Sepsis (SIRS due to an infection) 2. Sepsis with Organ Dysfunction 3. A localized Infection only 4. Another condition - please specify 5. Unable to determine - please explain. Depending on your selection above, please indicate one of the below if applicable: - Sepsis was present on Admission - Sepsis developed after admission The patient's Clinical Indicators include: PERFORATED VISCOUS respiratory rate 30 BP 97/56 noted on admission 01/08 band neutrophils 64% Prevotella, Bacteroides bacteremia 01/07 PER ID Anaerobic sepsis - likely 2/2 viscus perf: prevotella, bacteroides Unstabel 2/2 AVR Afib, no e/o ongoing sepsis physiology Query created by: Sonal Perea on 01/23/2017 4:33 PM RESPONSE TEXT: Provider disagreed with this CDI query. please refer this querry to Dr Garcia. He saw the patient on admission. by the time, i assumed care, s he was quite stable Electronically signed by: Donna Purdy MD 01/25/2017 2:25 PM
== END 2017-01-23 16:56 | disposition home health service (06) | DRG 393 ==
LOC: PHED 05:30 → PHEDA 08:04 → N03A 09:30 → N04B 01-11 12:25 → HIME 01-13 08:22 → N04B 01-16 14:19
PROVIDERS: ADMIT Internal Medicine Critical Care Medicine; ATTEND Internal Medicine Critical Care Medicine
PROC: 02HV33Z Insertion of Infusion Device into Superior Vena Cava, Percutaneous Approach (ICD-10-PCS; principal; 2017-01-08)
DX: K66.8 Other specified disorders of peritoneum (principal); A41.4 Sepsis due to anaerobes; I21.4 Non-ST elevation (NSTEMI) myocardial infarction; J18.9 Pneumonia, unspecified organism; J90 Pleural effusion, not elsewhere classified; E87.3 Alkalosis; B37.0 Candidal stomatitis; I27.2 Other secondary pulmonary hypertension; J44.0 Chronic obstructive pulmonary disease with (acute) lower respiratory infection; I47.1 Supraventricular tachycardia; J44.1 Chronic obstructive pulmonary disease with (acute) exacerbation; I48.91 Unspecified atrial fibrillation; E86.0 Dehydration; E83.42 Hypomagnesemia; F17.210 Nicotine dependence, cigarettes, uncomplicated; K44.9 Diaphragmatic hernia without obstruction or gangrene; R19.7 Diarrhea, unspecified; K21.9 Gastro-esophageal reflux disease without esophagitis; Z99.81 Dependence on supplemental oxygen; R09.02 Hypoxemia; K57.30 Diverticulosis of large intestine without perforation or abscess without bleeding; M79.89 Other specified soft tissue disorders; D75.89 Other specified diseases of blood and blood-forming organs; E87.6 Hypokalemia; I07.1 Rheumatic tricuspid insufficiency; G47.00 Insomnia, unspecified; D64.9 Anemia, unspecified; E83.39 Other disorders of phosphorus metabolism; Z85.118 Personal history of other malignant neoplasm of bronchus and lung
CPT/HCPCS: 36556; 36600; 71010; 71020; 74000; 74177; 76937; 78582; 80048; 80053; 81001; 82550; 82552; 82607; 82746; 82805; 82948; 83605; 83690; 83735; 83880; 84100; 84132; 84443; 84484; 85007; 85025; 85027; 85060; 85610; 85730; 86850; 86900; 86901; 87040; 87076; 87185; 87205; 87493; 87641; 87804; 93005; 93306; 93971; 94150; 94620; 94640; 94664; 96361; 96374; 96375; A9540; A9567; C9113; J0153; J0744; J1160; J1450; J1644; J2270; J2405; J2543; J2920; J2930; J3475; J3480; J7030; J7040; J7050; J7512; J7613; P9047; Q9963; Q9967